=== PATIENT | male | born 1960 | race Caucasian/White ===

== ENCOUNTER 2019-05-29 10:04 | Outpatient (CLI) | payer MEDICARE, MEDICAID, SELFPAY ==
--- NOTE | ~2019-05-29 | XR_ITS ---
EXAMINATION: XR hand LT min 3V, XR wrist LT min 3V EXAM DATE: 05/29/2019 10:34 (accession [id number]), 05/29/2019 10:35 (accession [id number]) INDICATION: No known recent injury provided at this time. Pain of the left hand, wrist. TECHNIQUE: Left hand frontal, lateral and oblique projections obtained and reviewed. Left wrist fron nanette, frontal with ulnar deviation, oblique and lateral projections obtained and reviewed. There is n o prior study for comparison. Correlation was made with contralateral hand, wrist same date. FINDINGS: Left metacarpal bones are unremarkable. Left wrist scapholunate joint space is maintained . There are no bony erosions identified. There are no acute fractures identified. There are no bony erosions identified. There is moderate triscaphe, first carpometacarpal, first-third metacarpophalangeal joint primary ost eoarthritis. Otherwise mild polyarticular interphalangeal osteoarthritis. IMPRESSION: 1. Up to moderate left hand, wrist osteoarthritis. Reviewed, dictated and finalized at location A. BROKER IMPRESSION: 1. Up to moderate left hand, wrist osteoarthritis.
--- NOTE | ~2019-05-29 | XR_ITS ---
EXAMINATION: XR hand RT min 3V, XR wrist RT min 3V EXAM DATE: 05/29/2019 10:36 INDICATION: No known recent injury provided at this time. Pain of the right hand, wrist. TECHNIQUE: Right hand frontal, lateral and oblique projections obtained and reviewed. Right wrist fro ntal, frontal with ulnar deviation, oblique and lateral projections obtained and reviewed. Correlatio n is made to contralateral exam same date. FINDINGS: Right metacarpal bones are unremarkable. Right wrist scapholunate joint space is maintain ed. There is moderate first carpometacarpal, first-third metacarpophalangeal primary osteoarthritis. There is mild to moderate radiocarpal primary osteoarthritis. Otherwise relatively mild polyarticular interphalangeal primary osteoarthritis. There are no acute fractures identified. There are no bony e rosions identified. IMPRESSION: Up to moderate polyarticular right hand, wrist osteoarthritis as above. Reviewed, dictated and finalized at location A. L REGULATOR IMPRESSION: Up to moderate polyarticular right hand, wrist osteoarthritis as a evelia.
[2019-05-29 10:22] LABS: Basophils Absolute Auto 0.05 K/mm3 (0.00-0.10); Basophils Percent Auto 0.8 % (0.0-1.0); Eosinophils Absolute Auto 0.46 K/mm3 (0.02-0.50); Hematocrit 46.4 % (40.0-54.0); Hemoglobin 15.6 g/dL (14.0-18.0); Immature Granulocyte Absolute 0.02 K/mm3 (0.00-0.00); Immature Granulocyte Percent A 0.3 % (0.0-0.0); Lymphocytes Absolute Auto 1.59 K/mm3 (1.10-4.50); Lymphocytes Percent Auto 24.1 % (18.0-42.0); Mean Corpuscular HGB Conc 33.6 g/dL (32.0-36.0); Mean Corpuscular Hemoglobin 28.9 pg (27.0-31.0); Mean Corpuscular Volume 85.9 fL (78.0-102.0); Mean Platelet Volume 10.9 fl (8.7-11.0); Monocytes Absolute Auto 0.75 K/mm3 (0.10-0.90); Monocytes Percent Auto 11.4 % (2.0-11.0); Neutrophils Absolute Auto 3.7 K/mm3 (1.7-7.2); Neutrophils Percent Auto 56.4 % (50.0-70.0); Platelet Count Result 240 K/mm3 (150-420); Red Cell Distribution Width 12.3 % (11.6-14.4); White Blood Count 6.6 K/mm3 (4.8-10.8)
[2019-05-29 10:46] LABS: Add Urine Microscopic? NO; Appearance Urine Clear (Clear); Bilirubin Urine Negative (Negative); Blood Urine Negative (Negative); Color Urine Yellow (Yellow); Glucose Urine UA Negative (Negative); Ketones Urine Negative (Negative); Leukocyte Esterase Ur Negative (Negative); Nitrate Urine Negative (Negative); Protein Urine Negative (Negative); Urobilinogen Urine 0.2 mg/dL (0.2-1.0)
[2019-05-29 11:05] LABS: Hemoglobin A1C 6.3 % (<5.7)
[2019-05-29 11:35] LABS: Erythrocyte Sedimentation Rate 9 mm/hr (0-20)
[2019-05-29 12:21] LABS: Alanine Aminotransferase 64 U/L (16-63); Albumin Level 4.4 g/dL (3.4-5.0); Alkaline Phosphatase 72 U/L (46-116); Anion Gap 19.1 mmol/L (7-16); Aspartate Amino Transferase 36 U/L (15-37); Bilirubin,Total 0.3 mg/dL (0.00-1.00); Blood Urea Nitrogen 14 mg/dL (7-18); Calcium 9.1 mg/dL (8.5-10.1); Carbon Dioxide 22 mmol/L (21-32); Chloride 104 mmol/L (98-108); Cholesterol 127 mg/dL (0-200); Creatine Kinase 175 U/L (39-308); Estimated Glomerular Filt Rate > 60; HDL Direct 33 mg/dL (40-60); LDL Cholesterol Calculated 69 mg/dL (<130); Osmolality Calculated 289 mOsm/kg (285-295); Potassium 4.1 mmol/L (3.5-5.1); Prostate Specific Antigen 0.7 ng/mL (< OR = 4.0); Sodium 141 mmol/L (136-145); Total Protein 7.9 g/dL (6.4-8.2); Triglycerides 124 mg/dL (0-150)
[2019-05-29 12:27] LABS: CRP < 0.2 mg/dL (0.0-0.9); Glucose 42 mg/dL (70-99)
[2019-05-29 12:33] LABS: Rheumatoid Factor Screen Positive (Negative)
[2019-05-29 12:34] LABS: RFT Charge Test YES
[2019-06-03 11:18] LABS: Anti Cyclic Citrullinated Pept <16 Units (<20)
== END 2019-05-29 10:05 | disposition home or self-care (01) ==
PROVIDERS: PCP Internal Medicine; Visit Provider Internal Medicine
DX: E11.65 Type 2 diabetes mellitus with hyperglycemia (principal); I10 Essential (primary) hypertension; E78.2 Mixed hyperlipidemia; M79.642 Pain in left hand; M79.641 Pain in right hand; M25.532 Pain in left wrist; M25.531 Pain in right wrist; Z12.5 Encounter for screening for malignant neoplasm of prostate
CPT/HCPCS: 36415; 73110; 73130; 80053; 80061; 81003; 82550; 83036; 84153; 85025; 85652; 86038; 86140; 86200; 86430; 86431; G0103

== ENCOUNTER 2019-06-18 13:59 | Outpatient (CLI) | payer MEDICARE, MEDICAID, SELFPAY ==
--- NOTE | 2019-06-18 14:12 | ECHO_ITS ---
Patient Info Name: Janes Esparza Age: 58 years : 1960 Gender: Male Ht: 71 in Wt: 231 lbs BSA: 2.32 m2 HR: 79 bpm BP: 142 / 74 mmHg Heart Rhythm: Sinus Rhythm Technical Quality: Good Exam Date: 06/18/2019 2:18 PM Exam Location: [facility] Patient Status: Outpatient Admit Date: 06/18/2019 Staff Ordering Physician: Khurram Hayes DO Medical Transcription Supervisor: Alec Beth RDCS Attending Provider: Khurram Hayes DO Referring Physician: Freddy PAUL; Exam Type: CA echo doppler color flow Study Info Indications I25.10 - Atherosclerotic heart disease of [place] coronary artery without angina pectoris Complete two-dimensional, color flow and Doppler transthoracic echocardiogram is performed. Strain analysis performed. History/Risk Factors CAD/TN, HTN, DM2. Summary 1. Left ventricular chamber dimension is normal. 2. Left ventricular systolic function is normal, estimated at 55-60%. 3. There is mildly increased left ventricular wall thickness. 4. The left ventricular diastolic function is grade I diastolic dysfunction. 5. E/e' 5 is not elevated. 6. Global longitudinal strain is abnormal at -15.1%. 7. Left atrial chamber dimension is mildly enlarged. Left Ventricle E/e' 5 is not elevated. Global longitudinal strain is abnormal at -15.1%. Left ventricular chamber dimension is normal. Left ventricular systolic function is normal, estimated at 55-60%. There is mildly increased left ventricular wall thickness. The left ventricular diastolic function is grade I diastolic dysfunction. Right Ventricle Right ventricular chamber dimension is normal. Right ventricular systolic function is normal. Left Atria Left atrial chamber dimension is mildly enlarged. Right Atria Right atrial chamber dimension is normal. Aortic Valve The aortic valve is trileaflet. There is no aortic valve stenosis. There is no aortic valve regurgitation. Pulmonic Valve There is no pulmonic regurgitation. Mitral Valve There is no mitral valve stenosis. There is no mitral valve regurgitation. Tricuspid Valve There is no tricuspid valve regurgitation. Pericardium/Pleural There is no pericardial effusion. Inferior Vena Cava Normal inferior vena cava with >50% collapse upon inspiration consistent with normal right atrial pressure, 5 mmHg. Aorta The aortic root size at the sinus of Valsalva is normal. Left Ventricular Outflow Tract Name Value Normal LVOT 2D LVOT Diameter 2.2 cm LVOT Doppler LVOT Peak Velocity 107 cm/s LVOT Peak Gradient 5 mmHg LVOT Mean Gradient 2 mmHg LVOT VTI 18 cm LVOT VTI/AV VTI Ratio 0.7 LVOT Stroke Volume 72 ml Mitral Valve Name Value Normal MV Doppler MV
== END 2019-06-18 14:00 | disposition home or self-care (01) ==
LOC: CHSIMG 14:02
PROVIDERS: PCP Internal Medicine; Visit Provider Internal Medicine Cardiovascular Disease
DX: I25.10 Atherosclerotic heart disease of native coronary artery without angina pectoris (principal)
CPT/HCPCS: 93306

== ENCOUNTER 2019-12-03 11:36 | Outpatient (CLI) | payer MEDICARE, SELFPAY ==
[2019-12-03 11:47] LABS: Add Urine Microscopic? NO; Appearance Urine Clear (Clear); Bilirubin Urine Negative (Negative); Blood Urine Negative (Negative); Color Urine Yellow (Yellow); Glucose Urine UA Negative (Negative); Ketones Urine Negative (Negative); Leukocyte Esterase Ur Negative (Negative); Nitrate Urine Negative (Negative); Protein Urine Negative (Negative); Specific Grav Ur 1.025 (1.010-1.020); Urobilinogen Urine 0.2 mg/dL (0.2-1.0); pH Urine 5.5 (5.0-8.0)
[2019-12-03 12:28] LABS: Hemoglobin A1C 7.7 % (<5.7)
[2019-12-03 12:29] LABS: Alanine Aminotransferase 52 U/L (16-63); Albumin Level 3.8 g/dL (3.4-5.0); Alkaline Phosphatase 61 U/L (46-116); Anion Gap 8 mmol/L (8-16); Aspartate Amino Transferase 30 U/L (15-37); Bilirubin,Total 0.3 mg/dL (0.00-1.00); Blood Urea Nitrogen 20 mg/dL (7-18); Calcium 8.8 mg/dL (8.5-10.1); Carbon Dioxide 28 mmol/L (21-32); Chloride 103 mmol/L (98-108); Cholesterol 141 mg/dL (0-200); Creatine Kinase 152 U/L (39-308); Estimated Glomerular Filt Rate > 60; Glucose 74 mg/dL (70-99); HDL Direct 27 mg/dL (40-60); LDL Cholesterol Calculated 83 mg/dL (<130); Osmolality Calculated 289 mOsm/kg (285-295); Potassium 4.5 mmol/L (3.5-5.1); Sodium 139 mmol/L (136-145); Total Protein 7.2 g/dL (6.4-8.2); Triglycerides 157 mg/dL (0-150)
[2019-12-03 12:31] LABS: Creatinine Urine 98.87 mg/dL (40-278)
[2019-12-03 12:41] LABS: MALB Creatinine Ratio 1.3 mg/g (0-30); Microalbumin Urine Random 1.3 mg/L
== END 2019-12-03 11:37 | disposition home or self-care (01) ==
LOC: CHSLAB 11:38
PROVIDERS: PCP Internal Medicine; Visit Provider Internal Medicine
DX: E78.2 Mixed hyperlipidemia (principal); E11.9 Type 2 diabetes mellitus without complications; I10 Essential (primary) hypertension
CPT/HCPCS: 36415; 80053; 80061; 81003; 82043; 82550; 83036

== ENCOUNTER 2020-03-01 10:35 | Outpatient (CLI) | payer MEDICARE, SELFPAY ==
[2020-03-02 14:12] LABS: SARS-CoV-2 RNA PCR Negative
== END 2020-03-01 10:36 | disposition home or self-care (01) ==
LOC: CHSLAB 10:38
PROVIDERS: PCP Internal Medicine; Visit Provider Internal Medicine
DX: Z20.828 Contact with and (suspected) exposure to other viral communicable diseases (principal)
CPT/HCPCS: 87635; C9803; U0003

== ENCOUNTER 2020-04-05 08:33 | Outpatient (CLI) | payer MEDICARE, MEDICAID, SELFPAY ==
--- NOTE | ~2020-04-05 | XR_ITS ---
EXAMINATION: XR chest 2V 04/05/2020 08:52 INDICATION: Pruritus. Shortness of breath. PROCEDURE: 2 view chest COMPARISON: 06/04/2018 FINDINGS: The lungs are clear. The cardiomediastinal silhouette is within normal limits. There are no pleural effusions. There is no pneumothorax suspected. IMPRESSION: 1: NO ACUTE CARDIOPULMONARY DISEASE. Reviewed, dictated and finalized at location A. ERER [employer]
[2020-04-05 08:46] LABS: Basophils Absolute Auto 0.03 K/mm3 (0.00-0.10); Basophils Percent Auto 0.6 % (0.0-1.0); Eosinophils Absolute Auto 0.48 K/mm3 (0.02-0.50); Eosinophils Percent Auto 8.9 % (1.0-6.0); Hematocrit 44.5 % (40.0-54.0); Hemoglobin 14.3 g/dL (14.0-18.0); Immature Granulocyte Absolute 0.03 K/mm3 (0.00-0.00); Immature Granulocyte Percent A 0.6 % (0.0-0.0); Lymphocytes Absolute Auto 0.91 K/mm3 (1.10-4.50); Lymphocytes Percent Auto 16.9 % (18.0-42.0); Mean Corpuscular HGB Conc 32.1 g/dL (32.0-36.0); Mean Corpuscular Hemoglobin 27.4 pg (27.0-31.0); Mean Corpuscular Volume 85.2 fL (78.0-102.0); Mean Platelet Volume 10.6 fl (8.7-11.0); Monocytes Absolute Auto 0.53 K/mm3 (0.10-0.90); Monocytes Percent Auto 9.9 % (2.0-11.0); Neutrophils Absolute Auto 3.4 K/mm3 (1.7-7.2); Neutrophils Percent Auto 63.1 % (50.0-70.0); Platelet Count Result 210 K/mm3 (150-420); Red Blood Count 5.22 M/mm3 (4.70-6.10); Red Cell Distribution Width 12.1 % (11.6-14.4); White Blood Count 5.4 K/mm3 (4.8-10.8)
[2020-04-05 09:49] LABS: Erythrocyte Sedimentation Rate 11 mm/hr (0-20)
[2020-04-05 10:01] LABS: Alanine Aminotransferase 75 U/L (16-63); Alkaline Phosphatase 76 U/L (46-116); Anion Gap 11 mmol/L (8-16); Aspartate Amino Transferase 31 U/L (15-37); Bilirubin,Total 0.3 mg/dL (0.00-1.00); Blood Urea Nitrogen 18 mg/dL (7-18); Carbon Dioxide 25 mmol/L (21-32); Chloride 101 mmol/L (98-108); Estimated Glomerular Filt Rate > 60; Glucose 213 mg/dL (70-99); Osmolality Calculated 291 mOsm/kg (285-295); Potassium 4.8 mmol/L (3.5-5.1); Sodium 137 mmol/L (136-145); Total Protein 7.6 g/dL (6.4-8.2)
[2020-04-05 10:29] LABS: Thyroid Stimulating Hormone Reflex 5.52 u/IU/mL (0.36-3.74)
[2020-04-05 10:59] LABS: Free T4 Free Thyroxine Reflex 0.75 ng/dL (0.76-1.46)
== END 2020-04-05 08:34 | disposition home or self-care (01) ==
LOC: CHSLAB 08:39
PROVIDERS: PCP Internal Medicine; Visit Provider Specialist
DX: L29.9 Pruritus, unspecified (principal)
CPT/HCPCS: 36415; 71046; 80053; 84439; 84443; 85025; 85652

== ENCOUNTER 2020-04-06 09:57 | Outpatient (CLI) | payer MEDICARE, SELFPAY ==
[2020-04-06 10:21] LABS: Creatinine Urine 89.61 mg/dL (40-278); MALB Creatinine Ratio 14.5 mg/g (0-30); Microalbumin Urine Random < 13.0 mg/L
[2020-04-06 10:23] LABS: Hemoglobin A1C 7.2 % (<5.7)
[2020-04-06 11:12] LABS: Anion Gap 8 mmol/L (8-16); Blood Urea Nitrogen 15 mg/dL (7-18); Calcium 9.6 mg/dL (8.5-10.1); Carbon Dioxide 30 mmol/L (21-32); Chloride 100 mmol/L (98-108); Estimated Glomerular Filt Rate > 60; Glucose 91 mg/dL (70-99); Osmolality Calculated 286 mOsm/kg (285-295); Potassium 4.6 mmol/L (3.5-5.1); Sodium 138 mmol/L (136-145)
== END 2020-04-06 09:58 | disposition home or self-care (01) ==
LOC: CHSLAB 09:58
PROVIDERS: PCP Internal Medicine; Visit Provider Internal Medicine
DX: E11.65 Type 2 diabetes mellitus with hyperglycemia (principal)
CPT/HCPCS: 36415; 80048; 82043; 83036

== ENCOUNTER 2020-07-05 14:06 | Outpatient (CLI) | payer MEDICARE, SELFPAY ==
[2020-07-05 14:17] LABS: Basophils Absolute Auto 0.03 K/mm3 (0.00-0.10); Basophils Percent Auto 0.6 % (0.0-1.0); Eosinophils Absolute Auto 0.38 K/mm3 (0.02-0.50); Eosinophils Percent Auto 7.8 % (1.0-6.0); Hematocrit 42.1 % (40.0-54.0); Hemoglobin 13.7 g/dL (14.0-18.0); Immature Granulocyte Absolute 0.02 K/mm3 (0.00-0.00); Immature Granulocyte Percent A 0.4 % (0.0-0.0); Lymphocytes Absolute Auto 0.92 K/mm3 (1.10-4.50); Lymphocytes Percent Auto 18.9 % (18.0-42.0); Mean Corpuscular HGB Conc 32.5 g/dL (32.0-36.0); Mean Corpuscular Hemoglobin 27.5 pg (27.0-31.0); Mean Corpuscular Volume 84.4 fL (78.0-102.0); Monocytes Absolute Auto 0.48 K/mm3 (0.10-0.90); Monocytes Percent Auto 9.9 % (2.0-11.0); Neutrophils Percent Auto 62.4 % (50.0-70.0); Platelet Count Result 214 K/mm3 (150-420); Red Blood Count 4.99 M/mm3 (4.70-6.10); Red Cell Distribution Width 13.4 % (11.6-14.4); White Blood Count 4.9 K/mm3 (4.8-10.8)
[2020-07-05 15:07] LABS: Alanine Aminotransferase 56 U/L (16-63); Albumin Level 3.9 g/dL (3.4-5.0); Alkaline Phosphatase 72 U/L (46-116); Anion Gap 11 mmol/L (8-16); Aspartate Amino Transferase 28 U/L (15-37); Bilirubin,Total 0.3 mg/dL (0.00-1.00); Blood Urea Nitrogen 17 mg/dL (7-18); Calcium 9.5 mg/dL (8.5-10.1); Carbon Dioxide 27 mmol/L (21-32); Chloride 101 mmol/L (98-108); Estimated Glomerular Filt Rate > 60; Free T4 Free Thyroxine Reflex 0.85 ng/dL (0.76-1.46); Glucose 174 mg/dL (70-99); Osmolality Calculated 293 mOsm/kg (285-295); Potassium 4.7 mmol/L (3.5-5.1); Sodium 139 mmol/L (136-145); Total Protein 7.4 g/dL (6.4-8.2)
[2020-07-05 15:23] LABS: Erythrocyte Sedimentation Rate 12 mm/hr (0-20)
[2020-07-11 12:53] LABS: Cholesterol 118 mg/dL (0-200); HDL Direct 32 mg/dL (40-60); Hemoglobin A1C 8.7 % (<5.7); LDL Cholesterol Calculated 65 mg/dL (<130); Triglycerides 106 mg/dL (0-150)
== END 2020-07-05 14:07 | disposition home or self-care (01) ==
LOC: CHSLAB 14:08
PROVIDERS: PCP Internal Medicine; Visit Provider Specialist
DX: L29.9 Pruritus, unspecified (principal); E78.5 Hyperlipidemia, unspecified; R73.01 Impaired fasting glucose
CPT/HCPCS: 36415; 80053; 80061; 83036; 84439; 84443; 85025; 85652

== ENCOUNTER 2020-10-08 06:50 | Outpatient (CLI) | payer MEDICARE, MEDICAID, SELFPAY ==
[2020-10-08 07:16] LABS: Basophils Absolute Auto 0.03 K/mm3 (0.00-0.10); Basophils Percent Auto 0.5 % (0.0-1.0); Eosinophils Absolute Auto 0.48 K/mm3 (0.02-0.50); Eosinophils Percent Auto 7.9 % (1.0-6.0); Hematocrit 44.4 % (40.0-54.0); Hemoglobin 14.7 g/dL (14.0-18.0); Immature Granulocyte Absolute 0.04 K/mm3 (0.00-0.00); Immature Granulocyte Percent A 0.7 % (0.0-0.0); Lymphocytes Absolute Auto 0.95 K/mm3 (1.10-4.50); Lymphocytes Percent Auto 15.7 % (18.0-42.0); Mean Corpuscular HGB Conc 33.1 g/dL (32.0-36.0); Mean Corpuscular Hemoglobin 28.4 pg (27.0-31.0); Mean Corpuscular Volume 85.9 fL (78.0-102.0); Mean Platelet Volume 10.8 fl (8.7-11.0); Monocytes Absolute Auto 0.58 K/mm3 (0.10-0.90); Monocytes Percent Auto 9.6 % (2.0-11.0); Neutrophils Percent Auto 65.6 % (50.0-70.0); Platelet Count Result 222 K/mm3 (150-420); Red Blood Count 5.17 M/mm3 (4.70-6.10); Red Cell Distribution Width 13.4 % (11.6-14.4); White Blood Count 6.1 K/mm3 (4.8-10.8)
[2020-10-08 07:21] LABS: Add Urine Microscopic? YES; Appearance Urine Clear (Clear); Bacteria Urine Trace /hpf; Bilirubin Urine Negative (Negative); Blood Urine Negative (Negative); Color Urine Light Yellow (Yellow); Glucose Urine UA 3+ (Negative); Ketones Urine Negative (Negative); Leukocyte Esterase Ur Negative (Negative); Nitrate Urine Negative (Negative); Protein Urine Negative (Negative); RBC Urine None seen /hpf (0-2); Specific Grav Ur 1.025 (1.010-1.020); Squamous Epithelial Cell Urine Rare /hpf (Few); Urobilinogen Urine 0.2 mg/dL (0.2-1.0); WBC Urine None seen /hpf (0-3); pH Urine 5.5 (5.0-8.0)
[2020-10-08 07:52] LABS: Creatinine Urine 109.87 mg/dL (40-278); MALB Creatinine Ratio 11.8 mg/g (0-30); Microalbumin Urine Random < 13.0 mg/L
[2020-10-08 07:53] LABS: Hemoglobin A1C 10.7 % (<5.7)
[2020-10-08 08:20] LABS: Erythrocyte Sedimentation Rate 14 mm/hr (0-20)
[2020-10-08 08:40] LABS: Alanine Aminotransferase 36 U/L (16-63); Alkaline Phosphatase 90 U/L (46-116); Anion Gap 13 mmol/L (8-16); Aspartate Amino Transferase 13 U/L (15-37); Bilirubin,Total 0.3 mg/dL (0.00-1.00); Blood Urea Nitrogen 19 mg/dL (7-18); Calcium 9.3 mg/dL (8.5-10.1); Carbon Dioxide 23 mmol/L (21-32); Chloride 97 mmol/L (98-108); Cholesterol 133 mg/dL (0-200); Creatine Kinase 94 U/L (39-308); Estimated Glomerular Filt Rate > 60; Glucose 340 mg/dL (70-99); HDL Direct 30 mg/dL (40-60); LDL Cholesterol Calculated 77 mg/dL (<130); Osmolality Calculated 291 mOsm/kg (285-295); Potassium 5.2 mmol/L (3.5-5.1); Prostate Specific Antigen 0.6 ng/mL (< OR = 4.0); Sodium 133 mmol/L (136-145); Thyroid Stimulating Hormone 4.15 uIU/mL (0.36-3.74); Total Protein 7.9 g/dL (6.4-8.2); Triglycerides 131 mg/dL (0-150)
[2020-10-08 09:03] LABS: CRP < 0.2 mg/dL (0.0-0.9); Free T4 Free Thyroxine 0.85 ng/dL (0.76-1.46)
== END 2020-10-08 06:51 | disposition home or self-care (01) ==
LOC: CHSLAB 06:52
PROVIDERS: PCP Internal Medicine; Visit Provider Internal Medicine
DX: E11.65 Type 2 diabetes mellitus with hyperglycemia (principal); E78.2 Mixed hyperlipidemia; I10 Essential (primary) hypertension; I25.10 Atherosclerotic heart disease of native coronary artery without angina pectoris; E03.4 Atrophy of thyroid (acquired); M79.641 Pain in right hand; Z12.5 Encounter for screening for malignant neoplasm of prostate
CPT/HCPCS: 36415; 80053; 80061; 81001; 82043; 82550; 83036; 84153; 84439; 84443; 85025; 85652; 86140; G0103

== ENCOUNTER 2021-02-22 08:11 | Outpatient (CLI) | payer OTHER, SELFPAY ==
[2021-02-22 08:40] LABS: Hemoglobin A1C 11.7 % (<5.7)
[2021-02-22 08:46] LABS: Creatinine Urine 21.45 mg/dL (40-278)
[2021-02-22 08:54] LABS: MALB Creatinine Ratio 60.6 mg/g (0-30); Microalbumin Urine Random < 13.0 mg/L
[2021-02-22 08:56] LABS: Add Urine Microscopic? YES; Appearance Urine Clear (Clear); Basophils Absolute Auto 0.03 K/mm3 (0.00-0.10); Basophils Percent Auto 0.7 % (0.0-1.0); Bilirubin Urine Negative (Negative); Blood Urine Negative (Negative); Color Urine Light Yellow (Yellow); Eosinophils Absolute Auto 0.22 K/mm3 (0.02-0.50); Eosinophils Percent Auto 5.1 % (1.0-6.0); Glucose Urine UA Trace (Negative); Hematocrit 43.4 % (40.0-54.0); Hemoglobin 14.3 g/dL (14.0-18.0); Immature Granulocyte Absolute 0.02 K/mm3 (0.00-0.00); Immature Granulocyte Percent A 0.5 % (0.0-0.0); Ketones Urine Negative (Negative); Leukocyte Esterase Ur Negative (Negative); Lymphocytes Absolute Auto 0.65 K/mm3 (1.10-4.50); Mean Corpuscular HGB Conc 32.9 g/dL (32.0-36.0); Mean Corpuscular Hemoglobin 28.4 pg (27.0-31.0); Mean Corpuscular Volume 86.3 fL (78.0-102.0); Mean Platelet Volume 10.6 fl (8.7-11.0); Monocytes Absolute Auto 0.51 K/mm3 (0.10-0.90); Monocytes Percent Auto 11.8 % (2.0-11.0); Neutrophils Absolute Auto 2.9 K/mm3 (1.7-7.2); Neutrophils Percent Auto 66.9 % (50.0-70.0); Nitrate Urine Negative (Negative); Platelet Count Result 210 K/mm3 (150-420); Protein Urine Negative (Negative); Red Blood Count 5.03 M/mm3 (4.70-6.10); Red Cell Distribution Width 13.3 % (11.6-14.4); Specific Grav Ur <= 1.005 (1.010-1.020); Urobilinogen Urine 0.2 mg/dL (0.2-1.0); White Blood Count 4.3 K/mm3 (4.8-10.8)
[2021-02-22 09:03] LABS: Bacteria Urine None seen /hpf; RBC Urine None seen /hpf (0-2); WBC Urine None seen /hpf (0-3)
[2021-02-22 09:08] LABS: Alanine Aminotransferase 48 U/L (16-63); Albumin Level 3.9 g/dL (3.4-5.0); Alkaline Phosphatase 78 U/L (46-116); Anion Gap 11 mmol/L (8-16); Aspartate Amino Transferase 19 U/L (15-37); Bilirubin,Total 0.4 mg/dL (0.00-1.00); Blood Urea Nitrogen 12 mg/dL (7-18); Calcium 8.5 mg/dL (8.5-10.1); Carbon Dioxide 25 mmol/L (21-32); Chloride 102 mmol/L (98-108); Cholesterol 132 mg/dL (0-200); Creatine Kinase 170 U/L (39-308); Estimated Glomerular Filt Rate > 60; Glucose 221 mg/dL (70-99); HDL Direct 29 mg/dL (40-60); LDL Cholesterol Calculated 79 mg/dL (<130); Osmolality Calculated 292 mOsm/kg (285-295); Potassium 4.7 mmol/L (3.5-5.1); Sodium 138 mmol/L (136-145); Total Protein 7.1 g/dL (6.4-8.2); Triglycerides 122 mg/dL (0-150)
[2021-02-22 09:17] LABS: CRP < 0.2 mg/dL (0.0-0.9)
[2021-02-22 10:06] LABS: Erythrocyte Sedimentation Rate 10 mm/hr (0-20)
== END 2021-02-22 08:12 | disposition home or self-care (01) ==
LOC: CHSLAB 08:15
PROVIDERS: PCP Internal Medicine; Visit Provider Internal Medicine
DX: E11.65 Type 2 diabetes mellitus with hyperglycemia (principal); E78.2 Mixed hyperlipidemia; L40.50 Arthropathic psoriasis, unspecified
CPT/HCPCS: 36415; 80053; 80061; 81001; 82043; 82550; 83036; 85025; 85652; 86140

== ENCOUNTER 2021-04-20 09:54 | Outpatient (CLI) | payer OTHER, SELFPAY ==
[2021-04-20 10:05] LABS: Basophils Absolute Auto 0.04 K/mm3 (0.00-0.10); Basophils Percent Auto 0.8 % (0.0-1.0); Eosinophils Absolute Auto 0.38 K/mm3 (0.02-0.50); Eosinophils Percent Auto 7.5 % (1.0-6.0); Hematocrit 44.7 % (40.0-54.0); Hemoglobin 14.2 g/dL (14.0-18.0); Immature Granulocyte Absolute 0.02 K/mm3 (0.00-0.00); Immature Granulocyte Percent A 0.4 % (0.0-0.0); Lymphocytes Absolute Auto 0.92 K/mm3 (1.10-4.50); Lymphocytes Percent Auto 18.2 % (18.0-42.0); Mean Corpuscular HGB Conc 31.8 g/dL (32.0-36.0); Mean Corpuscular Hemoglobin 27.9 pg (27.0-31.0); Mean Corpuscular Volume 87.8 fL (78.0-102.0); Mean Platelet Volume 11.6 fl (8.7-11.0); Monocytes Absolute Auto 0.43 K/mm3 (0.10-0.90); Monocytes Percent Auto 8.5 % (2.0-11.0); Neutrophils Absolute Auto 3.3 K/mm3 (1.7-7.2); Neutrophils Percent Auto 64.6 % (50.0-70.0); Platelet Count Result 210 K/mm3 (150-420); Red Blood Count 5.09 M/mm3 (4.70-6.10); Red Cell Distribution Width 13.2 % (11.6-14.4); White Blood Count 5.1 K/mm3 (4.8-10.8)
[2021-04-20 10:29] LABS: Alanine Aminotransferase 36 U/L (16-63); Albumin Level 3.8 g/dL (3.4-5.0); Alkaline Phosphatase 79 U/L (46-116); Anion Gap 12 mmol/L (8-16); Aspartate Amino Transferase 18 U/L (15-37); Bilirubin,Total 0.4 mg/dL (0.00-1.00); Blood Urea Nitrogen 17 mg/dL (7-18); Calcium 8.9 mg/dL (8.5-10.1); Carbon Dioxide 24 mmol/L (21-32); Chloride 103 mmol/L (98-108); Estimated Glomerular Filt Rate > 60; Glucose 233 mg/dL (70-99); Osmolality Calculated 296 mOsm/kg (285-295); Potassium 4.3 mmol/L (3.5-5.1); Sodium 139 mmol/L (136-145); Total Protein 7.1 g/dL (6.4-8.2)
== END 2021-04-20 09:55 | disposition home or self-care (01) ==
LOC: CHSLAB 09:55
PROVIDERS: PCP Internal Medicine; Visit Provider Internal Medicine
DX: L40.50 Arthropathic psoriasis, unspecified (principal)
CPT/HCPCS: 36415; 80053; 85025

== ENCOUNTER 2021-07-11 07:31 | Outpatient (CLI) | payer OTHER, SELFPAY ==
[2021-07-11 07:45] LABS: Basophils Absolute Auto 0.04 K/mm3 (0.00-0.10); Basophils Percent Auto 0.7 % (0.0-1.0); Eosinophils Percent Auto 9.3 % (1.0-6.0); Hematocrit 42.5 % (40.0-54.0); Hemoglobin 13.4 g/dL (14.0-18.0); Immature Granulocyte Absolute 0.02 K/mm3 (0.00-0.00); Immature Granulocyte Percent A 0.4 % (0.0-0.0); Lymphocytes Absolute Auto 0.95 K/mm3 (1.10-4.50); Lymphocytes Percent Auto 17.7 % (18.0-42.0); Mean Corpuscular HGB Conc 31.5 g/dL (32.0-36.0); Mean Corpuscular Hemoglobin 27.1 pg (27.0-31.0); Mean Corpuscular Volume 85.9 fL (78.0-102.0); Mean Platelet Volume 11.1 fl (8.7-11.0); Neutrophils Absolute Auto 3.2 K/mm3 (1.7-7.2); Neutrophils Percent Auto 58.9 % (50.0-70.0); Platelet Count Result 214 K/mm3 (150-420); Red Blood Count 4.95 M/mm3 (4.70-6.10); Red Cell Distribution Width 12.5 % (11.6-14.4); White Blood Count 5.4 K/mm3 (4.8-10.8)
[2021-07-11 07:46] LABS: Add Urine Microscopic? YES; Appearance Urine Clear (Clear); Bilirubin Urine Negative (Negative); Blood Urine Negative (Negative); Color Urine Light Yellow (Yellow); Glucose Urine UA 3+ (Negative); Ketones Urine Negative (Negative); Leukocyte Esterase Ur Negative LEU/UL (Negative); Nitrate Urine Negative (Negative); Protein Urine Negative (Negative); Specific Grav Ur 1.015 (1.010-1.020); Urobilinogen Urine 0.2 mg/dL (0.2-1.0)
[2021-07-11 07:51] LABS: Bacteria Urine None seen /hpf; RBC Urine None seen /hpf (0-2); WBC Urine None seen /hpf (0-3)
[2021-07-11 07:56] LABS: Creatinine Urine 54.92 mg/dL (40-278); MALB Creatinine Ratio 23.6 mg/g (0-30); Microalbumin Urine Random < 13.0 mg/L
[2021-07-11 08:12] LABS: Hemoglobin A1C 9.3 % (<5.7)
[2021-07-11 08:44] LABS: Alanine Aminotransferase 32 U/L (16-63); Albumin Level 3.6 g/dL (3.4-5.0); Alkaline Phosphatase 72 U/L (46-116); Anion Gap 8 mmol/L (8-16); Aspartate Amino Transferase 24 U/L (15-37); Bilirubin,Total 0.1 mg/dL (0.00-1.00); Blood Urea Nitrogen 13 mg/dL (7-18); Calcium 8.7 mg/dL (8.5-10.1); Carbon Dioxide 26 mmol/L (21-32); Chloride 103 mmol/L (98-108); Cholesterol 100 mg/dL (0-200); Creatine Kinase 299 U/L (39-308); Estimated Glomerular Filt Rate > 60; Glucose 197 mg/dL (70-99); HDL Direct 26 mg/dL (40-60); LDL Cholesterol Calculated 43 mg/dL (<130); Osmolality Calculated 289 mOsm/kg (285-295); Sodium 137 mmol/L (136-145); Total Protein 7.1 g/dL (6.4-8.2); Triglycerides 155 mg/dL (0-150)
== END 2021-07-11 07:32 | disposition home or self-care (01) ==
LOC: CHSLAB 07:34
PROVIDERS: PCP Internal Medicine; Visit Provider Internal Medicine
DX: E11.65 Type 2 diabetes mellitus with hyperglycemia (principal); E78.2 Mixed hyperlipidemia; I10 Essential (primary) hypertension; N39.0 Urinary tract infection, site not specified; L40.50 Arthropathic psoriasis, unspecified
CPT/HCPCS: 36415; 80053; 80061; 81001; 82043; 82550; 83036; 85025

== ENCOUNTER 2021-12-05 07:30 | Outpatient (CLI) | payer OTHER, SELFPAY ==
[2021-12-05 07:50] LABS: Add Urine Microscopic? YES; Appearance Urine Clear (Clear); Basophils Absolute Auto 0.04 K/mm3 (0.00-0.10); Basophils Percent Auto 0.8 % (0.0-1.0); Bilirubin Urine Negative (Negative); Blood Urine Negative (Negative); Color Urine Yellow (Yellow); Eosinophils Absolute Auto 0.39 K/mm3 (0.02-0.50); Eosinophils Percent Auto 8.1 % (1.0-6.0); Glucose Urine UA Negative (Negative); Hematocrit 44.1 % (40.0-54.0); Hemoglobin 14.1 g/dL (14.0-18.0); Immature Granulocyte Absolute 0.01 K/mm3 (0.00-0.00); Immature Granulocyte Percent A 0.2 % (0.0-0.0); Ketones Urine Trace (Negative); Leukocyte Esterase Ur Negative LEU/UL (Negative); Lymphocytes Absolute Auto 1.01 K/mm3 (1.10-4.50); Mean Corpuscular Hemoglobin 27.5 pg (27.0-31.0); Mean Platelet Volume 10.5 fl (8.7-11.0); Monocytes Absolute Auto 0.58 K/mm3 (0.10-0.90); Neutrophils Absolute Auto 2.8 K/mm3 (1.7-7.2); Neutrophils Percent Auto 57.9 % (50.0-70.0); Nitrate Urine Negative (Negative); Platelet Count Result 228 K/mm3 (150-420); Protein Urine Negative (Negative); Red Blood Count 5.13 M/mm3 (4.70-6.10); Red Cell Distribution Width 13.8 % (11.6-14.4); Urobilinogen Urine 0.2 mg/dL (0.2-1.0); White Blood Count 4.8 K/mm3 (4.8-10.8)
[2021-12-05 07:54] LABS: Bacteria Urine Trace /hpf; Mucus Urine Moderate /lpf; RBC Urine None seen /hpf (0-2); WBC Urine None seen /hpf (0-3)
[2021-12-05 07:58] LABS: Creatinine Urine 213.77 mg/dL (40-278); Microalbumin Urine Random < 13.0 mg/L
[2021-12-05 08:00] LABS: Hemoglobin A1C 9.8 % (<5.7)
[2021-12-05 08:19] LABS: Alanine Aminotransferase 26 U/L (16-63); Albumin Level 3.8 g/dL (3.4-5.0); Alkaline Phosphatase 81 U/L (46-116); Anion Gap 8 mmol/L (8-16); Aspartate Amino Transferase 27 U/L (15-37); Bilirubin,Total 0.4 mg/dL (0.00-1.00); Blood Urea Nitrogen 11 mg/dL (7-18); Calcium 8.7 mg/dL (8.5-10.1); Carbon Dioxide 26 mmol/L (21-32); Chloride 104 mmol/L (98-108); Estimated Glomerular Filt Rate > 60; Glucose 117 mg/dL (70-99); Osmolality Calculated 286 mOsm/kg (285-295); Potassium 4.7 mmol/L (3.5-5.1); Prostate Specific Antigen 0.8 ng/mL (< OR = 4.0); Sodium 138 mmol/L (136-145); Total Protein 7.3 g/dL (6.4-8.2)
== END 2021-12-05 07:31 | disposition home or self-care (01) ==
LOC: CHSLAB 07:36
PROVIDERS: PCP Internal Medicine; Visit Provider Internal Medicine
DX: D64.9 Anemia, unspecified (principal); E11.65 Type 2 diabetes mellitus with hyperglycemia; Z12.5 Encounter for screening for malignant neoplasm of prostate; N39.0 Urinary tract infection, site not specified
CPT/HCPCS: 36415; 80053; 81001; 82043; 83036; 84153; 85025; G0103

== ENCOUNTER 2022-03-12 11:10 | Outpatient (CLI) | payer OTHER, SELFPAY ==
[2022-03-12 11:27] LABS: Hematocrit 44.8 % (40.0-54.0); Hemoglobin 14.8 g/dL (14.0-18.0); Mean Corpuscular Hemoglobin 28.6 pg (27.0-31.0); Mean Corpuscular Volume 86.7 fL (78.0-102.0); Mean Platelet Volume 10.8 fl (8.7-11.0); Platelet Count Result 198 K/mm3 (150-420); Red Blood Count 5.17 M/mm3 (4.70-6.10); Red Cell Distribution Width 12.3 % (11.6-14.4); White Blood Count 3.9 K/mm3 (4.8-10.8)
[2022-03-12 12:12] LABS: Strep Group A RT-PCR Negative (Negative)
[2022-03-12 12:19] LABS: Band Neutrophils Percent 1 % (0-6); Eosinophils Absolute Manual 0.39 K/mm3 (0.02-0.5); Eosinophils Percent Manual 10 % (1-6); Lymphocytes Absolute Manual 0.78 K/mm3 (1.1-4.5); Lymphocytes Percent Manual 20 % (18-44); Monocytes Percent Manual 13 % (3-9); Neutrophils Absolute Manual 2.22 K/mm3 (1.3-6.7); Neutrophils Percent Manual 56 % (46-73); Platelet Estimate Adequate (Adequate); Total Cells Counted 100
[2022-03-12 12:20] LABS: Influenza A QL RT-PCR Negative (Negative); Influenza B QL RT-PCR Negative (Negative); SARS-CoV-2 RNA PCR Negative (Negative)
[2022-03-12 12:21] LABS: RSV RNA, RT-PCR Negative (Negative)
[2022-03-12 12:27] LABS: Alanine Aminotransferase 47 U/L (16-63); Albumin Level 4.1 g/dL (3.4-5.0); Alkaline Phosphatase 96 U/L (46-116); Anion Gap 7 mmol/L (8-16); Aspartate Amino Transferase 30 U/L (15-37); Bilirubin,Total 0.5 mg/dL (0.00-1.00); Blood Urea Nitrogen 15 mg/dL (7-18); Carbon Dioxide 30 mmol/L (21-32); Chloride 104 mmol/L (98-108); Estimated Glomerular Filt Rate > 60; Glucose 134 mg/dL (70-99); Osmolality Calculated 294 mOsm/kg (285-295); Potassium 5.3 mmol/L (3.5-5.1); Sodium 141 mmol/L (136-145); Total Protein 7.9 g/dL (6.4-8.2)
== END 2022-03-12 11:11 | disposition home or self-care (01) ==
PROVIDERS: PCP Internal Medicine; Visit Provider Internal Medicine
DX: J06.9 Acute upper respiratory infection, unspecified (principal); Z20.822 Contact with and (suspected) exposure to COVID-19
CPT/HCPCS: 36415; 80053; 85025; 87637; 87651

== ENCOUNTER 2022-07-03 07:36 | Outpatient (CLI) | payer OTHER, SELFPAY ==
[2022-07-03 07:55] LABS: Basophils Absolute Auto 0.04 K/mm3 (0.00-0.10); Basophils Percent Auto 0.8 % (0.0-1.0); Eosinophils Absolute Auto 0.47 K/mm3 (0.02-0.50); Eosinophils Percent Auto 9.7 % (1.0-6.0); Hematocrit 43.8 % (40.0-54.0); Hemoglobin 14.3 g/dL (14.0-18.0); Immature Granulocyte Absolute 0.02 K/mm3 (0.00-0.00); Immature Granulocyte Percent A 0.4 % (0.0-0.0); Lymphocytes Absolute Auto 0.89 K/mm3 (1.10-4.50); Lymphocytes Percent Auto 18.4 % (18.0-42.0); Mean Corpuscular HGB Conc 32.6 g/dL (32.0-36.0); Mean Corpuscular Hemoglobin 27.7 pg (27.0-31.0); Mean Corpuscular Volume 84.9 fL (78.0-102.0); Mean Platelet Volume 10.3 fl (8.7-11.0); Monocytes Absolute Auto 0.62 K/mm3 (0.10-0.90); Monocytes Percent Auto 12.8 % (2.0-11.0); Neutrophils Absolute Auto 2.8 K/mm3 (1.7-7.2); Neutrophils Percent Auto 57.9 % (50.0-70.0); Platelet Count Result 212 K/mm3 (150-420); Red Blood Count 5.16 M/mm3 (4.70-6.10); Red Cell Distribution Width 12.7 % (11.6-14.4); White Blood Count 4.8 K/mm3 (4.8-10.8)
[2022-07-03 07:59] LABS: Appearance Urine Clear (Clear); Bilirubin Urine Negative (Negative); Blood Urine Negative (Negative); Color Urine Light Yellow (Yellow); Glucose Urine UA Negative (Negative); Ketones Urine Negative (Negative); Leukocyte Esterase Ur Negative LEU/UL (Negative); Nitrate Urine Negative (Negative); Protein Urine Negative (Negative); Specific Grav Ur <= 1.005 (1.010-1.020); Urobilinogen Urine 0.2 mg/dL (0.2-1.0)
[2022-07-03 08:12] LABS: Add Urine Microscopic? NO
[2022-07-03 08:16] LABS: Creatinine Urine 38.13 mg/dL (40-278); Microalbumin Urine Random < 13.0 mg/L
[2022-07-03 08:20] LABS: Hemoglobin A1C 7.2 % (<5.7)
[2022-07-03 08:47] LABS: Alanine Aminotransferase 42 U/L (16-63); Albumin Level 3.8 g/dL (3.4-5.0); Alkaline Phosphatase 104 U/L (46-116); Anion Gap 8 mmol/L (8-16); Aspartate Amino Transferase 27 U/L (15-37); Bilirubin,Total 0.4 mg/dL (0.00-1.00); Blood Urea Nitrogen 16 mg/dL (7-18); Carbon Dioxide 30 mmol/L (21-32); Chloride 105 mmol/L (98-108); Cholesterol 185 mg/dL (0-200); Creatine Kinase 158 U/L (39-308); Estimated Glomerular Filt Rate > 60; Glucose 101 mg/dL (70-99); HDL Direct 33 mg/dL (40-60); LDL Cholesterol Calculated 133 mg/dL (<130); Osmolality Calculated 297 mOsm/kg (285-295); Potassium 5.2 mmol/L (3.5-5.1); Sodium 143 mmol/L (136-145); Total Protein 7.2 g/dL (6.4-8.2); Triglycerides 97 mg/dL (0-150)
[2022-07-03 10:57] LABS: Calcium 9.1 mg/dL (8.5-10.1)
== END 2022-07-03 07:37 | disposition home or self-care (01) ==
LOC: CHSLAB 07:38
PROVIDERS: PCP Internal Medicine; Visit Provider Internal Medicine
DX: E11.65 Type 2 diabetes mellitus with hyperglycemia (principal); E78.5 Hyperlipidemia, unspecified; N39.0 Urinary tract infection, site not specified
CPT/HCPCS: 36415; 80053; 80061; 81003; 82043; 82550; 83036; 85025

== ENCOUNTER 2022-11-29 07:14 | Outpatient (CLI) | payer OTHER, SELFPAY ==
[2022-11-29 07:56] LABS: Hemoglobin A1C 7.1 % (<5.7)
[2022-11-29 08:16] LABS: Alanine Aminotransferase 26 U/L (16-63); Albumin Level 3.6 g/dL (3.4-5.0); Alkaline Phosphatase 99 U/L (46-116); Anion Gap 9 mmol/L (8-16); Aspartate Amino Transferase 15 U/L (15-37); Bilirubin,Total 0.3 mg/dL (0.00-1.00); Blood Urea Nitrogen 18 mg/dL (7-18); Calcium 8.7 mg/dL (8.5-10.1); Carbon Dioxide 28 mmol/L (21-32); Chloride 103 mmol/L (98-108); Cholesterol 128 mg/dL (0-200); Creatine Kinase 136 U/L (39-308); Estimated Glomerular Filt Rate > 60; Glucose 219 mg/dL (70-99); HDL Direct 34 mg/dL (40-60); LDL Cholesterol Calculated 76 mg/dL (<130); Osmolality Calculated 298 mOsm/kg (285-295); Potassium 4.9 mmol/L (3.5-5.1); Sodium 140 mmol/L (136-145); Total Protein 6.9 g/dL (6.4-8.2); Triglycerides 92 mg/dL (0-150)
== END 2022-11-29 07:15 | disposition home or self-care (01) ==
LOC: CHSLAB 07:16
PROVIDERS: PCP Internal Medicine; Visit Provider Internal Medicine
DX: E11.65 Type 2 diabetes mellitus with hyperglycemia (principal)
CPT/HCPCS: 36415; 80053; 80061; 82550; 83036

== ENCOUNTER 2023-01-09 09:08 | Outpatient (CLI) | payer OTHER, SELFPAY ==
--- NOTE | ~2023-01-09 | XR_ITS ---
Clinical Indication: Cough PA and lateral views of the chest: Comparison: 04/05/2020 Findings: The lungs are clear, without evidence of focal consolidation or pleural effusion. Cardiome diastinal silhouette is within normal limits. Bones and soft tissues are unremarkable. Impression: Normal chest. Reviewed, dictated and finalized at [facility]. Impression: Normal chest.
== END 2023-01-09 09:09 | disposition home or self-care (01) ==
PROVIDERS: PCP Internal Medicine; Visit Provider Internal Medicine
DX: R05.9 Cough, unspecified (principal)
CPT/HCPCS: 71046

== ENCOUNTER 2023-03-13 09:20 | Outpatient (CLI) | payer OTHER, SELFPAY ==
[2023-03-13 09:34] LABS: Basophils Absolute Auto 0.03 K/mm3 (0.00-0.10); Basophils Percent Auto 0.6 % (0.0-1.0); Eosinophils Percent Auto 3.8 % (1.0-6.0); Hematocrit 41.8 % (40.0-54.0); Hemoglobin 13.8 g/dL (14.0-18.0); Immature Granulocyte Absolute 0.02 K/mm3 (0.00-0.00); Immature Granulocyte Percent A 0.4 % (0.0-0.0); Lymphocytes Absolute Auto 0.93 K/mm3 (1.10-4.50); Lymphocytes Percent Auto 17.7 % (18.0-42.0); Mean Corpuscular Hemoglobin 29.2 pg (27.0-31.0); Mean Corpuscular Volume 88.4 fL (78.0-102.0); Mean Platelet Volume 10.5 fl (8.7-11.0); Monocytes Absolute Auto 0.56 K/mm3 (0.10-0.90); Monocytes Percent Auto 10.7 % (2.0-11.0); Neutrophils Absolute Auto 3.5 K/mm3 (1.7-7.2); Neutrophils Percent Auto 66.8 % (50.0-70.0); Platelet Count Result 170 K/mm3 (150-420); Red Blood Count 4.73 M/mm3 (4.70-6.10); Red Cell Distribution Width 13.2 % (11.6-14.4); White Blood Count 5.3 K/mm3 (4.8-10.8)
[2023-03-13 09:38] LABS: Appearance Urine Clear (Clear); Bilirubin Urine Negative (Negative); Blood Urine Negative (Negative); Color Urine Light Yellow (Yellow); Glucose Urine UA Negative (Negative); Ketones Urine Negative (Negative); Leukocyte Esterase Ur Negative LEU/UL (Negative); Nitrate Urine Negative (Negative); Protein Urine Negative (Negative); Specific Grav Ur 1.015 (1.010-1.020); Urobilinogen Urine 0.2 mg/dL (0.2-1.0)
[2023-03-13 09:40] LABS: Add Urine Microscopic? NO
[2023-03-13 09:45] LABS: Creatinine Urine 104.75 mg/dL (40-278); Hemoglobin A1C 7.3 % (<5.7); MALB Creatinine Ratio 12.4 mg/g (0-30); Microalbumin Urine Random < 13.0 mg/L
[2023-03-13 10:16] LABS: Alanine Aminotransferase 38 U/L (16-63); Albumin Level 3.7 g/dL (3.4-5.0); Alkaline Phosphatase 86 U/L (46-116); Anion Gap 5 mmol/L (8-16); Aspartate Amino Transferase 21 U/L (15-37); Bilirubin,Total 0.4 mg/dL (0.00-1.00); Blood Urea Nitrogen 16 mg/dL (7-18); Carbon Dioxide 32 mmol/L (21-32); Chloride 102 mmol/L (98-108); Cholesterol 119 mg/dL (0-200); Creatine Kinase 163 U/L (39-308); Estimated Glomerular Filt Rate > 60; Glucose 119 mg/dL (70-99); HDL Direct 36 mg/dL (40-60); LDL Cholesterol Calculated 66 mg/dL (<130); Osmolality Calculated 290 mOsm/kg (285-295); Potassium 5.3 mmol/L (3.5-5.1); Sodium 139 mmol/L (136-145); Total Protein 7.1 g/dL (6.4-8.2); Triglycerides 85 mg/dL (0-150)
== END 2023-03-13 09:21 | disposition home or self-care (01) ==
LOC: CHSLAB 09:22
PROVIDERS: PCP Internal Medicine; Visit Provider Internal Medicine
DX: N39.0 Urinary tract infection, site not specified (principal); E11.65 Type 2 diabetes mellitus with hyperglycemia; E78.2 Mixed hyperlipidemia; I10 Essential (primary) hypertension
CPT/HCPCS: 36415; 80053; 80061; 81003; 82043; 82550; 83036; 85025

== ENCOUNTER 2023-07-18 09:04 | Outpatient (CLI) | payer OTHER, SELFPAY ==
[2023-07-18 09:15] LABS: Basophils Absolute Auto 0.04 K/mm3 (0.00-0.10); Basophils Percent Auto 0.7 % (0.0-1.0); Eosinophils Absolute Auto 0.28 K/mm3 (0.02-0.50); Eosinophils Percent Auto 4.7 % (1.0-6.0); Hemoglobin 14.5 g/dL (14.0-18.0); Immature Granulocyte Absolute 0.02 K/mm3 (0.00-0.00); Immature Granulocyte Percent A 0.3 % (0.0-0.0); Lymphocytes Absolute Auto 0.72 K/mm3 (1.10-4.50); Mean Corpuscular Hemoglobin 30.2 pg (27.0-31.0); Mean Corpuscular Volume 91.7 fL (78.0-102.0); Mean Platelet Volume 9.9 fl (8.7-11.0); Monocytes Absolute Auto 0.52 K/mm3 (0.10-0.90); Monocytes Percent Auto 8.7 % (2.0-11.0); Neutrophils Absolute Auto 4.41 K/mm3 (1.70-7.20); Neutrophils Percent Auto 73.6 % (50.0-70.0); Platelet Count Result 195 K/mm3 (150-420); Red Cell Distribution Width 12.8 % (11.6-14.4)
[2023-07-18 09:23] LABS: Hemoglobin A1C 6.1 % (<5.7)
[2023-07-18 10:22] LABS: Alanine Aminotransferase 59 U/L (16-63); Albumin Level 4.2 g/dL (3.4-5.0); Alkaline Phosphatase 83 U/L (46-116); Anion Gap 9 mmol/L (4-12); Aspartate Amino Transferase 40 U/L (15-37); Bilirubin,Total 0.6 mg/dL (0.00-1.00); Blood Urea Nitrogen 10 mg/dL (7-18); Calcium 8.8 mg/dL (8.5-10.1); Carbon Dioxide 31 mmol/L (21-32); Chloride 102 mmol/L (98-108); Estimated Glomerular Filt Rate > 60; Glucose 103 mg/dL (70-99); Osmolality Calculated 293 mOsm/kg (285-295); Potassium 4.9 mmol/L (3.5-5.1); Sodium 142 mmol/L (136-145); Total Protein 7.2 g/dL (6.4-8.2)
== END 2023-07-18 09:05 | disposition home or self-care (01) ==
LOC: CHSLAB 09:05
PROVIDERS: PCP Internal Medicine; Visit Provider Internal Medicine
DX: E11.65 Type 2 diabetes mellitus with hyperglycemia (principal); L40.50 Arthropathic psoriasis, unspecified
CPT/HCPCS: 36415; 80053; 83036; 85025

== ENCOUNTER 2024-02-27 08:37 | Outpatient (CLI) | payer OTHER, SELFPAY ==
[2024-02-27 08:50] LABS: Basophils Absolute Auto 0.06 K/mm3 (0.00-0.10); Basophils Percent Auto 1.1 % (0.0-1.0); Eosinophils Absolute Auto 0.32 K/mm3 (0.02-0.50); Hematocrit 44.1 % (40.0-54.0); Immature Granulocyte Absolute 0.02 K/mm3 (0.00-0.00); Immature Granulocyte Percent A 0.4 % (0.0-0.0); Lymphocytes Absolute Auto 0.85 K/mm3 (1.10-4.50); Lymphocytes Percent Auto 15.9 % (18.0-42.0); Mean Corpuscular Hemoglobin 30.4 pg (27.0-31.0); Mean Corpuscular Volume 89.5 fL (78.0-102.0); Mean Platelet Volume 10.1 fl (8.7-11.0); Monocytes Percent Auto 9.4 % (2.0-11.0); Neutrophils Absolute Auto 3.58 K/mm3 (1.70-7.20); Neutrophils Percent Auto 67.2 % (50.0-70.0); Platelet Count Result 198 K/mm3 (150-420); Red Blood Count 4.93 M/mm3 (4.70-6.10); Red Cell Distribution Width 12.3 % (11.6-14.4); White Blood Count 5.3 K/mm3 (4.8-10.8)
[2024-02-27 08:59] LABS: Add Urine Microscopic? NO; Appearance Urine Clear (Clear); Bilirubin Urine Negative (Negative); Blood Urine Negative (Negative); Color Urine Light Yellow (Yellow); Glucose Urine UA Negative (Negative); Ketones Urine Negative (Negative); Leukocyte Esterase Ur Negative (Negative); Nitrate Urine Negative (Negative); Protein Urine Negative (Negative); Urobilinogen Urine 0.2 mg/dL (0.2-1.0)
[2024-02-27 09:51] LABS: MALB Creatinine Ratio 11.9 mg/g (0-30); Microalbumin Urine Random < 13.0 mg/L
[2024-02-27 09:55] LABS: Hemoglobin A1C 6.5 % (<5.7)
[2024-02-27 10:01] LABS: Alanine Aminotransferase 38 U/L (16-63); Albumin Level 4.1 g/dL (3.4-5.0); Alkaline Phosphatase 84 U/L (46-116); Anion Gap 9 mmol/L (4-12); Aspartate Amino Transferase 22 U/L (15-37); Bilirubin,Total 0.5 mg/dL (0.00-1.00); Blood Urea Nitrogen 19 mg/dL (7-18); Calcium 9.3 mg/dL (8.5-10.1); Carbon Dioxide 29 mmol/L (21-32); Chloride 103 mmol/L (98-108); Cholesterol 133 mg/dL (0-200); Estimated Glomerular Filt Rate > 60; Glucose 94 mg/dL (70-99); HDL Direct 35 mg/dL (40-60); LDL Cholesterol Calculated 81 mg/dL (<130); Osmolality Calculated 294 mOsm/kg (285-295); Potassium 5.2 mmol/L (3.5-5.1); Sodium 141 mmol/L (136-145); Total Protein 7.3 g/dL (6.4-8.2); Triglycerides 84 mg/dL (0-150)
[2024-02-27 10:52] LABS: Creatine Kinase 123 U/L (39-308); Prostate Specific Antigen 0.9 ng/mL (< OR = 4.0)
== END 2024-02-27 08:38 | disposition home or self-care (01) ==
LOC: CHSLAB 08:39
PROVIDERS: PCP Internal Medicine; Visit Provider Internal Medicine
DX: E11.9 Type 2 diabetes mellitus without complications (principal); E78.5 Hyperlipidemia, unspecified; I10 Essential (primary) hypertension; Z12.5 Encounter for screening for malignant neoplasm of prostate
CPT/HCPCS: 36415; 80053; 80061; 81003; 82043; 82550; 83036; 84153; 85025; G0103

== ENCOUNTER 2024-06-03 08:45 | Outpatient (CLI) | payer OTHER, SELFPAY ==
[2024-06-03 09:09] LABS: Hematocrit 44.6 % (40.0-54.0); Hemoglobin 14.6 g/dL (14.0-18.0); Mean Corpuscular HGB Conc 32.7 g/dL (32-36); Mean Corpuscular Hemoglobin 29.5 pg (27.0-31.0); Mean Corpuscular Volume 90.1 fL (78.0-102.0); Mean Platelet Volume 9.9 fl (8.7-11.0); Platelet Count Result 188 K/mm3 (150-420); Red Blood Count 4.95 M/mm3 (4.70-6.10); Red Cell Distribution Width 14.3 % (11.6-14.4); White Blood Count 4.6 K/mm3 (4.8-10.8)
--- OUTSIDE RECORDS SUMMARY | 2024-06-03 09:15 | XMS_ITS | Patient Health Summary ---
Author Organization [facility] Address [address] [place] [address] Care Team Providers Care Sock Turner Name Role Phone Jaron Nieto MD Primary Care Provider [phone] Note from [facility],non-owned Affiliates and Associated Physician Practices is amultiple site organization consisting of ambulatory clinics and hospital sitesin [place], [place], [place] and [place]. This disclosure is being madepursuant to the Care Everywhere program and may not contain all information available regarding this patient. Last updated 18.[facility] Allergies No known active allergies Medications * Be aware that medications may not be up to date on this document. Alwaysverify current medications with the patient. * Basaglar KwikPen (BASAGLAR) pen(Started 04/27/2021) Inject 50 Units subcutaneously at bedtime * lisinopril (PRINIVIL; ZESTRIL) 20 MG tablet(Started 04/05/2021) Take 20 mg by mouth once daily * sertraline (ZOLOFT) 50 MG tablet(Started 06/14/2021) Take 50 mg by mouth once daily * amLODIPine (NORVASC) 10 MG tablet(Started 06/14/2021) Take 10 mg by mouth once daily * atorvastatin (LIPITOR) 40 MG tablet(Started 05/30/2021) Take 40 mg by mouth at bedtime * isosorbide mononitrate CR 24hr (IMDUR) 30 MG tablet(Started 06/14/2021) Take 30 mg by mouth once daily * Trulicity 1.5 MG/0.5ML injection(Started 11/21/2021) Inject 1.5 mg subcutaneously every 7 days * gabapentin (Neurontin) 600 MG tablet(Started 12/13/2021) Take 2 pills 3 times per day. 2 refills by 12/13/2022 * pantoprazole EC (Protonix) 40 MG tablet(Started 12/21/2021) Active Problems Problem Noted Date Diagnosed Date Elevated beta-2 microglobulin 12/13/2021 Type 2 diabetes mellitus wit hout complication, with long-term current use of insulin 08/14/2021 Essential (primary) hypertension 08/14/2021 GERD (gastroesophageal reflux disease) CAD (coronary artery disease) 08/14/2021 Inflammatory polyarthritis 08/14/2021 Rheumatoid factor positive 08/14/2021 Resolved Problems Problem Noted Date Diagnosed Date Resolved Date Rash 08/14/2021 01/10/2022 Immunizations * INFLUENZA VACCINE(Given 06/09/2021) * INFLUENZA VACCINE, QUADR. (FLUZONE; FLULAVAL; FLUARIX; AFLURIA QUADRIVALENT; 6MO+), 0.5 ML (IIV4)(Given 03/04/2019) * Pneumococcal Pcv13 Conj(Given 08/14/2018) * TDAP, HISTORIC VACCINE(Given 05/28/2019) * Zoster Hzv Vacc Recombinant Inj Im(Given 12/24/2018) Social History Tobacco Use Types Packs/Day Years Used Date Smoking Tobacco: Never Smokeless Tobacco: Never Alcohol Use Standard Drinks/Week Comments Not Currently 0 (1 standard drink = 0.6 oz pur e alcohol) PHQ-2 Answer Date Recorded PHQ2 TOTAL SCORE 0 11/23/2021 Sex and Gender Information Value Date Recorded Sex Assigned at Not on file Gender Identity Not on file Sexual Orientation Not on file Last Filed Vital Signs Vital Sign Reading Time Taken Comments Blood Pressure 118/70 01/02/2022 3:23 PM CDT Pulse 91 01/02/2022 3:23 PM CDT Temperature 36.6 C (97.8 F) 01/02/2022 3:23 PM CDT Respiratory Rate 16 11/23/2021 4:06 PM CDT Oxygen Saturation 97% 01/02/2022 3:23 PM CDT Inhaled Oxygen Concentration - - Weight 102.3 kg (225 lb 9.6 oz) 01/02/2022 3:23 PM CDT Height 180.3 cm (5' 11 ) 12/13/2021 8:07 AM CDT Body Mass Index 31.46 12/13/2021 8:07 AM CDT Procedures * FLOW CYTOMETRY BLOOD PROFILE(Performed 12/13/2021) Performed for Inflammatory polyarthritis (HCC), Rheumatoid factor positive, Elevated beta-2 microglobulin * PROTEIN ELECTROPHORESIS URINE RANDOM(Performed 12/13/2021) Performed for Inflammatory polyarthritis (HCC), Rheumatoid factor positive, Elevated beta-2 microglobulin * HEMOCHROMATOSIS MUTATION PANEL(Performed 12/13/2021) Performed for Inflammatory polyarthritis (HCC), Rheumatoid factor positive, Rash, Elevated beta-2 microglobulin, Type 2 diabetes mellitus without complication, with long-term current use of insulin (HCC) * HEMOGLOBIN A1C(Performed 12/13/2021) Performed for Inflammatory polyarthritis (HCC), Rheumatoid factor positive, Rash, Elevated beta-2 microglobulin, Type 2 diabetes mellitus without complication, with long-term current use of insulin (HCC) * IRON + TRANSFERRIN PANEL(Performed 12/13/2021) Performed for Inflammatory polyarthritis (HCC), Rheumatoid factor positive, Rash, Elevated beta-2 microglobulin, Type 2 diabetes mellitus without complication, with long-term current use of insulin (HCC) * PROBRAIN NATRIURETIC PEPTIDE N TERMINAL(Performed 12/13/2021) Performed for Inflammatory polyarthritis (HCC), Rheumatoid factor positive, Rash, Elevated beta-2 microglobulin * B-TYPE NATRIURETIC PEPTIDE(Performed 12/13/2021) Performed for Inflammatory polyarthritis (HCC), Rheumatoid factor positive, Rash, Elevated beta-2 microglobulin * TROPONIN I(Performed 12/13/2021) Performed for Inflammatory polyarthritis (HCC), Rheumatoid factor positive, Rash, Elevated beta-2 microglobulin * PROTEIN ELECTROPHORESIS BLOOD(Performed 12/13/2021) Performed for Inflammatory polyarthritis (HCC), Rheumatoid factor positive, Rash, Elevated beta-2 microglobulin * PROTEIN CREATININE RATIO URINE RANDOM PNL(Performed 12/13/2021) Performed for Inflammatory polyarthritis (HCC), Rheumatoid factor positive, Rash, Elevated beta-2 microglobulin * URINALYSIS W/MICROSCOPIC REFLEX TO CULTURE(Performed 12/13/2021) Performed for Inflammatory polyarthritis (HCC), Rheumatoid factor positive, Rash, Elevated beta-2 microglobulin * COMPREHENSIVE METABOLIC PANEL(Performed 12/13/2021) Performed for Inflammatory polyarthritis (HCC), Rheumatoid factor positive, Rash, Elevated beta-2 microglobulin * CBC W AUTO DIFFERENTIAL(Performed 12/13/2021) Performed for Inflammatory polyarthritis (HCC), Rheumatoid factor positive, Rash, Elevated beta-2 microglobulin * RHEUMATOID FACTOR BLOOD QUANTITATIVE(Performed 12/13/2021) Performed for Inflammatory polyarthritis (HCC), Rheumatoid factor positive, Elevated beta-2 microglobulin * FACTOR X ASSAY(Performed 12/13/2021) Performed for Inflammatory polyarthritis (HCC), Rheumatoid factor positive, Elevated beta-2 microglobulin * PROTEIN ELECTROPHORESIS URINE RANDOM(Performed 11/23/2021) Performed for Rheumatoid factor positive, Inflammatory polyarthritis (HCC) * VITAMIN D 1,25 DIHYDROXY(Performed 11/23/2021) Performed for Inflammatory polyarthritis (HCC), Rheumatoid factor positive, Rash * KAPPA/LAMBDA LITE CHAIN FREE PANEL(Performed 11/23/2021) Performed for Inflammatory polyarthritis (HCC), Rheumatoid factor positive, Rash * TKIC-5-DUFZUUWEAFFUR BLOOD(Performed 11/23/2021) Performed for Inflammatory polyarthritis (HCC), Rheumatoid factor positive, Rash * CYCLIC CITRULLINATED PEPTIDE(CCP) AB IGG(Performed 11/23/2021) Performed for Inflammatory polyarthritis (HCC), Rheumatoid factor positive, Rash * RHEUMATOID FACTOR IGG/IGM/IGA AB(Performed 11/23/2021) Performed for Inflammatory polyarthritis (HCC), Rheumatoid factor positive, Rash * TSH REFLEX FREE T4(Performed 11/23/2021) Performed for Inflammatory polyarthritis (HCC), Rheumatoid factor positive, Rash * FERRITIN(Performed 11/23/2021) Performed for Inflammatory polyarthritis (HCC), Rheumatoid factor positive, Rash * ERYTHROCYTE SEDIMENTATION RATE(Performed 11/23/2021) Performed for Inflammatory polyarthritis (HCC), Rheumatoid factor positive, Rash * C-REACTIVE PROTEIN(Performed 11/23/2021) Performed for Inflammatory polyarthritis (HCC), Rheumatoid factor positive, Rash * XR KNEE RIGHT 3VW(Performed 08/14/2021) Performed for Inflammatory polyarthritis (HCC), Rash, Rheumatoid factor positive * XR KNEE LEFT 3VW(Performed 08/14/2021) Performed for Inflammatory polyarthritis (HCC), Rash, Rheumatoid factor positive * XR SI JOINTS 3VW OR MORE(Performed 08/14/2021) Performed for Inflammatory polyarthritis (HCC), Rash, Rheumatoid factor positive * XR WRIST LEFT 2VW(Performed 08/14/2021) Performed for Inflammatory polyarthritis (HCC), Rash, Rheumatoid factor positive * XR WRIST RIGHT 2VW(Performed 08/14/2021) Performed for Inflammatory polyarthritis (HCC), Rash, Rheumatoid factor positive * XR HAND RIGHT 3VW OR MORE(Performed 08/14/2021) Performed for Inflammatory polyarthritis (HCC), Rash, Rheumatoid factor positive * XR HAND LEFT 3VW OR MORE(Performed 08/14/2021) Performed for Inflammatory polyarthritis (HCC), Rash, Rheumatoid factor positive * XR FOOT RIGHT 3VW OR MORE(Performed 08/14/2021) Performed for Inflammatory polyarthritis (HCC), Rash, Rheumatoid factor positive * XR FOOT LEFT 3VW OR MORE(Performed 08/14/2021) Performed for Inflammatory polyarthritis (HCC), Rash, Rheumatoid factor positive * CYCLIC CITRULLINATED PEPTIDE(CCP) AB IGG(Performed 08/14/2021) Performed for Inflammatory polyarthritis (HCC), Rash, Rheumatoid factor positive * RHEUMATOID FACTOR IGG/IGM/IGA AB(Performed 08/14/2021) Performed for Inflammatory polyarthritis (HCC), Rash, Rheumatoid factor positive * QUANTIFERON-TB GOLD PLUS 4-TUBE(Performed 08/14/2021) Performed for Inflammatory polyarthritis (HCC), Rash, Rheumatoid factor positive, Screening for tuberculosis * TSH REFLEX FREE T4(Performed 08/14/2021) Performed for Inflammatory polyarthritis (HCC), Rash, Rheumatoid factor positive * HEPATITIS C ANTIBODY(Performed 08/14/2021) Performed for Inflammatory polyarthritis (HCC), Rash, Rheumatoid factor positive, Need for hepatitis C screening test * HEPATITIS B SURFACE ANTIGEN W RFLX CONFIRMATION(Performed 08/14/2021) Performed for Inflammatory polyarthritis (HCC), Rash, Rheumatoid factor positive, Need for hepatitis B screening test * HEPATITIS B SURFACE ANTIBODY(Performed 08/14/2021) Performed for Inflammatory polyarthritis (HCC), Rash, Rheumatoid factor positive, Need for hepatitis B screening test * HEPATITIS B CORE ANTIBODY TOTAL(Performed 08/14/2021) Performed for Inflammatory polyarthritis (HCC), Rash, Rheumatoid factor positive, Need for hepatitis B screening test * ERYTHROCYTE SEDIMENTATION RATE(Performed 08/14/2021) Performed for Inflammatory polyarthritis (HCC), Rash, Rheumatoid factor positive * C-REACTIVE PROTEIN(Performed 08/14/2021) Performed for Inflammatory polyarthritis (HCC), Rash, Rheumatoid factor positive * COMPREHENSIVE METABOLIC PANEL(Performed 08/14/2021) Performed for Inflammatory polyarthritis (HCC), Rash, Rheumatoid factor positive * CBC W AUTO DIFFERENTIAL(Performed 08/14/2021) Performed for Inflammatory polyarthritis (HCC), Rash, Rheumatoid factor positive * CULTURE AEROBIC(Performed 06/16/2021) Performed for Secondary infection of skin Results * FLOW CYTOMETRY BLOOD PROFILE (12/13/2021 9:38 AM CDT) Case Report Flow Cytometry Case: [id number] Authorizing Provider: Rufino Srinivasan MD Collected: 12/13/2021 09:38 AM Ordering Location: [facility] OP DRAW STATION Received: 12/13/2021 10:19 AM Pathologist: Mei Siu Mai, DO Specimen: Blood 12/13/2021 5:38 PM T [facility] Final Diagnosis Peripheral blood, flow cytometric immunophenotypic analysis: - No evidence of non-Hodgkin lymphoma or high grade myeloid neoplasm - See interpretation 12/13/2021 5:38 PM [facility] Flow Cytometry Results Differential Result Comment WBC Count /uL 4,400 Total Viability % 100.0 Lymphocytes % 23 Dim CD45 Region % 1 Monocytes % 14 Granulocytes % 61 12/13/2021 5:38 PM [facility] Flow Cytometry Interpretation The peripheral blood specimen has a viability of 100%. The lymphocyte, dim CD45, monocyte, and granulocyte venegas are normal in relative proportion. Within the lymphocyte gate, there is no monotypic B-cell population identified (kappa: lambda ratio = 1.6:1). There is no significant blast population identified. T-cell analysis shows a CD4/CD8 ratio of 1.7 and no significant immunophenotypic abnormality. A peripheral blood smear prepared from the flow cytometry specimen is reviewed for quality assurance consultant purposes. Overall, the peripheral blood specimen shows no evidence of involvement by a non-Hodgkin lymphoma or a high-grade myeloid neoplasm. Correlation with clinical findings is required. 12/13/2021 5:38 PM CDT [facility] Reason for test Inflammatory polyarthritis 714.9 Rheumatoid factor positive 795.79 Elevated beta-2 microglobulin 796.4 12/13/2021 5:38 PM CDT [facility] Client Specimen ID # [id number] 12/13/2021 5:38 PM T [facility] Disclaimer Test performed at [facility], [address], [place], [address]. *The established laboratory minimum viability is 70%. Values below the minimum may result in the failure to find an abnormal population of cells. This test was developed and its performance characteristics determined by the Flow Cytometry Laboratory. It has not been cleared by the [place] Food and Drug Administration (FDA). The FDA has determined that such clearance or approval is not necessary. This test is used for clinical purposes. It should not be regarded as investigational or for research. This laboratory is regulated under the Clinical Laboratory Improvement Amendments of 1998 (CLIA) as a qualified to perform high complexity clinical testing. 12/13/2021 5:38 PM CDT [facility] Embedded Images 5:38 PM CDT [facility] Number of markers 19 were performed. A-2 Flow CD10 A-3 Flow CD13 A-5 Flow CD20 A-11 Flow CD3 A-12 Flow CD4 A-14 FLow CD16 A-1 Flow CD5 A-4 Flow CD19 A-6 Flow CD33 A-7 Flow CD34 A-8 Flow CD45 A-13 Flow CD8 A-15 Flow CD26 A-16 Flow CD56 A-17 Flow CD57 A-18 TCR-AB A-19 TCR-GD A-9 Guin+CD19+ A-10 Lambda+CD19+ 12/13/2021 5:38 PM CDT [facility] Blood BLOOD SPECIMEN / Unknown Lab Venipuncture / Unknown 12/13/2021 9:38 AM CDT 12/13/2021 10:19 AM CDT Rufino Srinivasan MD LAB - PATHOLOGY/CYTO LOGY ORDERABLES [facility] [address] [place], [place] [address] [place] [address] * PROBRAIN NATRIURETIC PEPTIDE N TERMINAL (12/13/2021 9:38 AM CDT) NT-proBNP 79 0 - 124 pg/mL 12/15/2021 8:17 AM CDT [facility] ([facility]) Comment: REFERENCE INTERVAL: NT-Probnp Natriuretic Peptide Access complete set of age- and/or gender-specific reference intervals for this test in the [email or web address] Test Directory [email or web address]). Performed By: [facility] [employer] [address] [place] [address] Compensation Programs Manager: Rashaad Arita MD, PhD Blood BLOOD SPECIMEN / Unknown Lab Venipuncture / Unknown 12/13/2021 9:38 AM CDT 12/13/2021 10:30 AM CDT Rufino Srinivasan MD LAB - CHEMISTRY EVAN SNYDER Performing Organization Address City/State/[facility] Co de Phone Number [facility]) [address] [place] [address] * URINALYSIS W/MICROSCOPIC REFLEX TO CULTURE (12/13/2021 9:38 AM CDT) Color UA Yellow Straw, Yellow 12/13/2021 10:25 AM CDT [facility] Clarity UA Clear Clear 12/13/2021 10:25 AM CDT [facility] Specific Hurley UA 1.006 1.005 - 1.030 12/13/2021 10:25 AM CDT [facility] pH UA 6.0 5.0 - 8.0 pH 12/13/2021 10:25 AM CDT [facility] Protein UA Negative Negative 12/13/2021 10:25 AM CDT [facility] Glucose UA Negative Negative 12/13/2021 10:25 AM CDT [facility] Ketone UA Negative Negative 12/13/2021 10:25 AM CDT [facility] Bilirubin UA Negative Negative 12/13/2021 10:25 AM CDT [facility] Blood UA Negative Negative 12/13/2021 10:25 AM CDT [facility] Nitrite UA Negative Negative 12/13/2021 10:25 AM CDT [facility] Leukocyte Esterase Negative Negative 12/13/2021 10:25 AM CDT [facility] Urobilinogen UA Negative Negative mg/dL 12/13/2021 10:25 AM T [facility] RBC UA None Seen None Seen, 0-2, 3-5 /HPF 12/13/2021 10:25 AM CDT [facility] WBC UA 0-5 None Seen, 0-5 /HPF 12/13/2021 10:25 AM T [facility] Squamous Epithelial Cells UA None Seen None Seen, 0-2, 3-5 /HPF 12/13/2021 10:25 AM CDT [facility] Urine URINE SPECIMEN OBTAINED BY CLEAN CATCH PROCEDURE / Unknown Collection / Unknown 12/13/2021 9:38 AM CDT 12/13/2021 10:14 AM CDT Narrative [facility] - 12/13/2021 10:25 AM CDT Culture Not Indicated Rufino Srinivasan MD LAB - URINALYSIS ORD ERABLES [address] [address], [facility] [phone] * PROTEIN ELECTROPHORESIS URINE RANDOM (12/13/2021 9:38 AM CDT) Only the most recent of2 resultswithin the time period is included. Interpretation Urine PE See Comment Normal Pattern 12/19/2021 5:46 PM T [facility] Comment: Urine protein electrophoresis shows a band corresponding to albumin with small amounts of other nonspecific proteinuria. No monoclonal immunoglobulins detected. Bebe Gallegos PhD, [facility] Clinical Cell Attendant Helper bead builder Protein Urine <7 Not Established mg/dL 12/19/2021 5:46 PM T [facility] Urine URINE SPECIMEN OBTAINED BY CLEAN CATCH PROCEDURE / Unknown Collection / Unknown 12/13/2021 9:38 AM CDT 12/13/2021 10:14 AM CDT Rufino Srinivasan MD LAB - URINE CHEMISTR Y ORDERABLES [address] [address], [facility] [phone] * HEMOCHROMATOSIS MUTATION PANEL (12/13/2021 9:38 AM CDT) HFE C282Y Mutation Negative 2021 10:09 PM CDT [facility] ([facility]) HFE Specimen Source Whole Blood 12/18/2021 10:09 PM CDT [facility] ([facility]) HFE H63D Mutation Negative 022 10:09 PM CDT [facility] ([facility]) HFE S65C Mutation Negative 10:09 PM CDT [facility] ([facility]) Interpretation HFE Mutation See Note 12/18/2021 10:09 PM CDT [facility] ([facility]) Comment: Indication for testing: Carrier screening or diagnostic testing for hereditary hemochromatosis. Hemochromatosis Interpretive Results: Negative WT: C282Y: Negative - The patient is negative for the HFE C282Y mutation. H63D: Negative - The patient is negative for the HFE H63D mutation. S65C: Negative - The patient is negative for the HFE S65C mutation. Mutations in unidentified genes or other mutations in the HFE gene are not ruled out. This result has been reviewed and approved by Ashanti Antoine, Ph.D. BACKGROUND INFORMATION: Hemochromatosis (HFE) 3 Mutations CHARACTERISTICS: Disorder of iron metabolism resulting in excessive iron storage leading to increased skin pigmentation, arthritis, hypogonadism, diabetes mellitus, heart arrhythmias/failure, cirrhosis and liver carcinoma. INCIDENCE: One in 300 individuals of [place] descent; unknown in other ethnicities. INHERITANCE: Autosomal recessive. PENETRANCE: 5 percent of C282Y homozygotes, 1 percent of C282Y/H63D compound heterozygotes and rare H63D homozygotes develop clinical symptoms. CAUSE: Two pathogenic HFE gene mutations on opposite chromosomes. MUTATIONS TESTED: p.C282Y (c.845G>A), p.H63D (c.187C>G), and p.S65C (c.193A>T). CLINICAL SENSITIVITY: 85 percent of hereditary hemochromatosis in Northern Europeans is caused by C282Y homozygosity and 5 percent by C282Y/H63D compound heterozygosity. METHODOLOGY: PCR and fluorescence monitoring. ANALYTICAL SENSITIVTY AND SPECIFICITY: 99 percent. LIMITATIONS: HFE mutations, other than those targeted, will not be detected. Diagnostic errors can occur due to rare sequence variations. This test was developed and its performance characteristics determined by [employer]. It has not been cleared or approved by the [place] Food and Drug Administration. This test was performed in a CLIA certified laboratory and is intended for clinical purposes. Counseling and informed consent are recommended for genetic testing. Consent forms are available online. Performed by [facility], [address] [place] [id number] [email or web address], Rashaad Arita MD, PHD, Lab. Director Blood BLOOD SPECIMEN / Unknown Lab Venipuncture / Unknown 12/13/2021 9:38 AM CDT 12/13/2021 10:16 AM CDT Rufino Srinivasan MD LAB - CHEMISTRY EVAN SNYDER [facility] ([facility]) [address] [place] [address] * TROPONIN I (12/13/2021 9:38 AM CDT) Troponin I 0.014 <0.032 ng/mL 12/13/2021 11:00 AM CDT [facility] Blood BLOOD SPECIMEN / Unknown Lab Venipuncture / Unknown 12/13/2021 9:38 AM CDT 12/13/2021 10:17 AM CDT Rufino Srinivasan MD LAB - CHEMISTRY EVAN SNYDER [facility] [address] [place] [address], [facility] [phone] * RHEUMATOID FACTOR BLOOD QUANTITATIVE (12/13/2021 9:38 AM CDT) Rheumatoid Factor <15 <30 IU/mL 12/13/2021 11:08 AM CDT [facility] Rheumatoid Factor Screen Negative Negative 12/13/2021 11:08 AM CDT [facility] Blood BLOOD SPECIMEN / Unknown Lab Venipuncture / Unknown 12/13/2021 9:38 AM CDT 12/13/2021 10:16 AM CDT Rufino Srinivasan MD LAB - CHEMISTRY ORDE RABLES [address] [address], [facility] [phone] * FACTOR X ASSAY (12/13/2021 9:38 AM CDT) Factor X Activity 72 70 - 120 % 12/13/2021 1:21 PM CDT [facility] Blood BLOOD SPECIMEN / Unknown Lab Venipuncture / Unknown 12/13/2021 9:38 AM CDT 12/13/2021 10:17 AM CDT Rufino Srinivasan MD LAB - COAGULATION OR DERABLES Performing Organization Address [facility]/ZIP Co de Phone Number [address] [address], [facility] [phone] * (ABNORMAL) HEMOGLOBIN A1C (12/13/2021 9:38 AM CDT) Hemoglobin A1c 9.6(H) <=5.6 % 12/13/2021 11:50 AM CDT [facility] Estimated Average Glucose 229 mg/dL 12/13/2021 11:50 AM CDT [facility] Comment: HbA1c Interpretation: Normal : < 5.7% Pre-diabetes: 5.7-6.4% Diabetes: Equal to or greater than 6.5% Test results diagnostic of diabetes should be repeated for confirmation. Treatment target values recommended by ADA and other clinical organizations should be used to evaluate metabolic control in patients. Reference: [place] [employer], Standards of Care in Diabetes -2020 In patients 70 years and older consider HbA1c target range of 7.0-7.5% (Reference: Booker Gross et al. JAMDA. 2012) The Sebia assay for the measurement of HbA1c is a National Glycohemoglobin Standardization Program (NGSP) certified method. Blood BLOOD SPECIMEN / Unknown Lab Venipuncture / Unknown 12/13/2021 9:38 AM CDT 12/13/2021 10:17 AM CDT Rufino Srinivasan MD LAB - CHEMISTRY EVAN SNYDER [facility] Organization Address City/State/ZIP Co de Phone Number [facility] [address] [place] [address], [facility] [phone] * (ABNORMAL) CBC WITH DIFFERENTIAL (12/13/2021 9:38 AM CDT) Only the most recent of2 resultswithin the time period is included. WBC 4.4 3.5 - 10.5 10 3/uL 12/13/2021 10:26 AM [facility] RBC 5.33 4.30 - 5.70 10 6/uL 12/13/2021 10:26 AM [facility] Hemoglobin 14.2 12.0 - 17.6 g/dL 12/13/2021 10:26 AM [facility] Hematocrit 45.0 35.2 - 51.7 % 12/13/2021 10:26 AM [facility] MCV 84.4 80.7 - 98.3 fL 12/13/2021 10:26 AM [facility] MCH 26.6(L) 26.7 - 34.0 pg 12/13/2021 10:26 AM [facility] MCHC 31.6 30.8 - 35.9 g/dL 12/13/2021 10:26 AM [facility] Platelet Count 198 150 - 400 10 3/uL 12/13/2021 10:26 AM [facility] RDW-SD 43.3 36.0 - 50.0 fL 12/13/2021 10:26 AM [facility] RDW-CV 14.1 11.2 - 14.8 % 12/13/2021 10:26 AM [facility] MPV 11.2 9.4 - 12.9 fL 12/13/2021 10:26 AM [facility] nRBC Absolute 0.00 0 10 3/uL 12/13/2021 10:26 AM [facility] nRBC Auto 0.0 0 /100 WBC 12/13/2021 10:26 AM [facility] Neutrophils % 62.4 35.0 - 70.0 % 12/13/2021 10:26 AM [facility] Lymphocytes % 20.0 20.0 - 43.0 % 12/13/2021 10:26 AM [facility] Monocytes % 11.0 5.0 - 13.0 % 12/13/2021 10:26 AM [facility] Eosinophils % 5.7 0.0 - 6.0 % 12/13/2021 10:26 AM [facility] Basophil % 0.7 0.0 - 2.0 % 12/13/2021 10:26 AM [facility] Neutrophils Absolute 2.72 1.60 - 7.00 10 3/uL 12/13/2021 10:26 AM [facility] Lymphocyte Absolute 0.87(L) 1.10 - 3.90 10 3/uL 12/13/2021 10:26 AM [facility] Monocytes Absolute 0.48 0.26 - 1.07 10 3/uL 12/13/2021 10:26 AM [facility] Eosinophils Absolute 0.25 0.00 - 0.47 10 3/uL 12/13/2021 10:26 AM [facility] Basophils Absolute 0.03 0.00 - 0.08 10 3/uL 12/13/2021 10:26 AM [facility] Immature Granulocytes % 0.2 0.0 - 1.0 % 12/13/2021 10:26 AM [facility] Immature Granulocytes Absolute 0.01 12/13/2021 10:26 AM [facility] Blood BLOOD SPECIMEN / Unknown Lab Venipuncture / Unknown 12/13/2021 9:38 AM CDT 12/13/2021 10:17 AM CDT Rufino Srinivasan MD LAB - HEMATOLOGY ORD ERABLES [facility] [address] [place] [phone], [facility] [phone] * B-TYPE NATRIURETIC PEPTIDE (12/13/2021 9:38 AM CDT) BNP 46 <100 pg/mL 12/13/2021 11:00 AM [facility] Comment: A decision threshold of 100 pg/mL has been demonstrated to provide the maximal combination of sensitivity, specificity and predictive value for the diagnosis of congestive heart failure (CHF). Virtually all patients with no evidence of CHF have BNP values less than 100 pg/mL. A BNP value greater than 100 pg/mL is consistent with the diagnosis of CHF in the appropriate clinical setting. In a study of 693 patients (male and female) with diagnosed CHF, the following values were determined based on the NYHA functional classification system: NYHA Functional Class Mean Valule (pg/mL) % >100 pg/mL I 320 58.1 II 432 73.0 III 656 79.0 IV 1635 98.3 Blood BLOOD SPECIMEN / Unknown Lab Venipuncture / Unknown 12/13/2021 9:38 AM CDT 12/13/2021 10:17 AM CDT Rufino Srinivasan MD LAB - CHEMISTRY EVAN SNYDER [facility] Organization Address City/State/ZIP Co de Phone Number [facility] [address] [place] [phone], [facility] [phone] * (ABNORMAL) COMPREHENSIVE METABOLIC PANEL (12/13/2021 9:38 AM CDT) Only the most recent of2 resultswithin the time period is included. BUN 12 7 - 26 mg/dL 12/13/2021 10:55 AM [facility] Creatinine 0.79 0.71 - 1.16 mg/dL 12/13/2021 10:55 AM [facility] Sodium 137 136 - 145 mmol/L 12/13/2021 10:55 AM [facility] Potassium 4.0 3.5 - 4.5 mmol/L 12/13/2021 10:55 AM [facility] Chloride 104 98 - 107 mmol/L 12/13/2021 10:55 AM [facility] CO2 23 22 - 29 mmol/L 12/13/2021 10:55 AM [facility] Glucose 121(H) 70 - 115 mg/dL 12/13/2021 10:55 AM [facility] Calcium 9.3 8.4 - 10.2 mg/dL 12/13/2021 10:55 AM [facility] Protein Total 7.5 6.0 - 8.3 g/dL 12/13/2021 10:55 AM [facility] Albumin 4.0 3.4 - 5.0 g/dL 12/13/2021 10:55 AM [facility] Bilirubin Total 0.4 0.2 - 1.2 mg/dL 12/13/2021 10:55 AM [facility] Alkaline Phosphatase 70 40 - 150 U/L 12/13/2021 10:55 AM [facility] ALT 32 5 - 55 U/L 12/13/2021 10:55 AM [facility] AST 24 5 - 34 U/L 12/13/2021 10:55 AM [facility] Anion Gap 14 8 - 18 12/13/2021 10:55 AM [facility] BUN/Creatinine Ratio 15 7 - 23 12/13/2021 10:55 AM [facility] Osmolality Calculated 285 270 - 300 mOsm/kg 12/13/2021 10:55 AM [facility] Albumin/Globulin Ratio 1.1 1.1 - 2.3 12/13/2021 10:55 AM [facility] eGFR by CKD-EPI >90 >=90 mL/min/1.7 3 m2 12/13/2021 10:55 AM [facility] Blood BLOOD SPECIMEN / Unknown Lab Venipuncture / Unknown 12/13/2021 9:38 AM CDT 12/13/2021 10:17 AM [facility] Rufino Srinivasan MD LAB - CHEMISTRY EVAN SNYDER [facility] Organization Address City/State/ZIP Co de Phone Number [facility] [address] [place] [phone], [facility] [phone] * PROTEIN CREATININE RATIO URINE RANDOM PNL (12/13/2021 9:38 AM CDT) Protein Urine <7 Not Established mg/dL 12/13/2021 10:37 AM [facility] Creatinine Urine 74 Not Established mg/dL 12/13/2021 10:37 AM CDT [facility] Protein/Creatinin e Ratio Urine 12/13/2021 10:37 AM T [facility] Comment:Unable to calculate ratio because the analyte concentration is outside the instrument measuring range. Urine URINE SPECIMEN OBTAINED BY CLEAN CATCH PROCEDURE / Unknown Collection / Unknown 12/13/2021 9:38 AM CDT 12/13/2021 10:14 AM CDT Rufino Srinivasan MD LAB - URINE CHEMISTR Y ORDERABLES [facility] [address] [place] [address], [facility] [phone] * PROTEIN ELECTROPHORESIS BLOOD (12/13/2021 9:38 AM CDT) Interpretation Serum PE Normal Pattern Normal Pattern 12/19/2021 5:46 PM [facility] Comment: Serum capillary electrophoresis shows characteristic bands corresponding to albumin, alpha and beta globulins and polyclonal immunoglobulins. No monoclonal immunoglobulin detected. Non-secretory myeloma (NSM) and light chain only myeloma cannot be excluded based on this result. Recommend serum free light chain measurements for complete evaluation of plasma cell disorders. Abimbola Hernadez MD Pathology resident PGY1 *The electrophoresis pattern and the interpretation have been reviewed and verified by the teaching physician. Protein Total 7.1 6.0 - 8.3 g/dL 12/19/2021 5:46 PM [facility] Albumin 3.8 3.3 - 5.6 g/dL 12/19/2021 5:46 PM [facility] Alpha-1 Globulins 0.3 0.2 - 0.4 g/dL 12/19/2021 5:46 PM [facility] Alpha-2 Globulins 0.9 0.5 - 1.0 g/dL 12/19/2021 5:46 PM [facility] Beta Globulins 1.0 0.6 - 1.1 g/dL 12/19/2021 5:46 PM [facility] Gamma Globulins 1.1 0.6 - 1.6 g/dL 12/19/2021 5:46 PM [facility] Blood BLOOD SPECIMEN / Unknown Lab Venipuncture / Unknown 12/13/2021 9:38 AM CDT 12/13/2021 10:16 AM CDT Rufino Srinivasan MD LAB - CHEMISTRY EVAN SNYDER Performing Organization Address [facility]/ZIP Co de Phone Number [facility] [address] [address], [facility] [phone] * IRON + TRANSFERRIN PANEL (12/13/2021 9:38 AM CDT) Iron 131 50 - 175 ug/dL 12/13/2021 10:45 AM CDT [facility] Transferrin 322 174 - 382 mg/dL 12/13/2021 10:45 AM CDT [facility] Transferrin Saturation % 33 16 - 50 % 12/13/2021 10:45 AM CDT [facility] TIBC Calculated 403 240 - 450 ug/dL 12/13/2021 10:45 AM CDT [facility] Blood BLOOD SPECIMEN / Unknown Lab Venipuncture / Unknown 12/13/2021 9:38 AM CDT 12/13/2021 10:16 AM CDT Rufino Srinivasan MD LAB - CHEMISTRY EVAN SNYDER Performing Organization Address [facility] Co de Phone Number [address] [address], [place] [phone] * (ABNORMAL) RHEUMATOID FACTOR IGG/IGM/IGA AB (11/23/2021 4:52 PM CDT) Only the most recent of2 resultswithin the time period is included. Rheumatoid Factor IgA by Mitra 8(H) <=6 Units 11/29/2021 9:13 PM CDT [facility] ([facility]) Comment: INTERPRETIVE INFORMATION: Rheumatoid Factor, IgA by MITRA The presence of all three rheumatoid factor (RF) isotypes at abnormal levels has high specificity for a diagnosis of rheumatoid arthritis (RA). However, the presence of RF isotypes in any combination may be found in a variety of conditions, including Sjogren syndrome and hepatitis infections. Rheumatoid Factor IgM by Mitra 12(H) <=6 Units 11/29/2021 9:13 PM CDT [facility] ([facility]) Comment: INTERPRETIVE INFORMATION: Rheumatoid Factor, IgM by MITRA The presence of all three rheumatoid factor (RF) isotypes at abnormal levels has high specificity for a diagnosis of rheumatoid arthritis (RA). However, the presence of RF isotypes in any combination may be found in a variety of conditions, including Sjogren syndrome and hepatitis infections. Rheumatoid Factor IgG by Mitra 6 <=6 Units 11/29/2021 9:13 PM CDT [facility] ([facility]) Comment: INTERPRETIVE INFORMATION: Rheumatoid Factor, IgG by MITRA The presence of all three rheumatoid factor (RF) isotypes at abnormal levels has high specificity for a diagnosis of rheumatoid arthritis (RA). However, the presence of RF isotypes in any combination may be found in a variety of conditions, including Sjogren syndrome and hepatitis infections. Performed By: [place] [address] Compensation Programs Manager: Rashaad Arita MD, PhD Blood BLOOD SPECIMEN / Unknown Lab Venipuncture / Unknown 11/23/2021 4:52 PM CDT 11/23/2021 5:01 PM CDT Rufino Srinivasan MD LAB - SEROLOGY ORDER [facility]) [address] [place] [address] * TSH REFLEX FREE T4 (11/23/2021 4:52 PM CDT) Only the most recent of2 resultswithin the time period is included. TSH 3.230 0.350 - 4.940 uIU/mL 11/23/2021 5:55 PM CDT [facility] Blood BLOOD SPECIMEN / Unknown Lab Venipuncture / Unknown 11/23/2021 4:52 PM CDT 11/23/2021 5:06 PM CDT Rufino Srinivasan MD LAB - CHEMISTRY ORDE CLAUDIO [address] [address], [facility] [phone] * C-REACTIVE PROTEIN (11/23/2021 4:52 PM CDT) Only the most recent of2 resultswithin the time period is included. Pathologist [facility] [place] C-Reactive Protein <0.5 <=0.5 mg/dL 11/23/2021 5:39 PM CDT [facility] Blood BLOOD SPECIMEN / Unknown Lab Venipuncture / Unknown 11/23/2021 4:52 PM CDT 11/23/2021 5:01 PM CDT Rufino Srinivasan MD LAB - CHEMISTRY EVAN SNYDER [place] [phone], [facility] [phone] * VITAMIN D 1,25 DIHYDROXY (11/23/2021 4:52 PM CDT) [facility] Vitamin D, 1,25 Dihydroxy 63.4 19.9 - 79.3 pg/mL 11/26/2021 4:34 AM CDT [facility] ([facility]) Comment: INTERPRETIVE INFORMATION: Vitamin D, 1,25-Dihydroxy This test is primarily indicated during patient evaluation for hypercalcemia and renal failure. A normal result does not rule out Vitamin D deficiency. The recommended test for diagnosing Vitamin D deficiency is Vitamin D 25-hydroxy. Performed By: [facility] [address] [place] [address] Compensation Programs Manager: Rashaad Arita MD, PhD Blood BLOOD SPECIMEN / Unknown Lab Venipuncture / Unknown 11/23/2021 4:52 PM CDT 11/23/2021 5:01 PM CDT Rufino Srinivasan MD LAB - CHEMISTRY EVAN SNYDER [facility] [address] * (ABNORMAL) KWJH-2-EOHRJPSLWIGNM BLOOD (11/23/2021 4:52 PM CDT) Pathologist [facility] [place] Beta-2 Microglobulin 2.7(H) 1.0 - 2.6 mg/L 11/23/2021 5:39 PM CDT [facility] Blood BLOOD SPECIMEN / Unknown Lab Venipuncture / Unknown 11/23/2021 4:52 PM CDT 11/23/2021 5:01 PM CDT Rufino Srinivasan MD LAB - CHEMISTRY EVAN SNYDER [address] [address], [facility] [phone] * CYCLIC CITRULLINATED PEPTIDE(CCP) AB IGG (11/23/2021 4:52 PM CDT) Only the most recent of2 resultswithin the time period is included. Pathologist [facility] [place] CCP Antibody IgG <0.5 <5.0 U/mL 11/23/2021 6:04 PM CDT [facility] Blood BLOOD SPECIMEN / Unknown Lab Venipuncture / Unknown 11/23/2021 4:52 PM CDT 11/23/2021 5:01 PM CDT Rufino Srinivasan MD LAB - CHEMISTRY EVAN SNYDER Performing Organization Address City/[facility]/ZIP Co de Phone Number [address] [phone], [facility] [phone] * (ABNORMAL) KAPPA/LAMBDA LITE CHAIN FREE PANEL (11/23/2021 4:52 PM CDT) Pathologist [facility] [place] Guin Quant Free Light Chain 34.13(H) 3.30 - 19.40 mg/L 11/25/2021 9:00 PM CDT [facility] ([facility]) Comment: INTERPRETIVE INFORMATION: Guin Qnt Free Light Chains Undetected antigen excess is a rare event but cannot be excluded. Free light chain results should always be interpreted in conjunction with other clinical and laboratory findings. Lambda Free Light Chain Quantitative 25.33 5.71 - 26.30 mg/L 11/25/2021 9:00 PM CDT [facility] ([facility]) Comment: INTERPRETIVE INFORMATION: Lambda Qnt Free Light Chains Undetected antigen excess is a rare event but cannot be excluded. Free light chain results should always be interpreted in conjunction with other clinical and laboratory findings. Guin/Lambda Free Light Chain ratio 1.35 0.26 - 1.65 11/25/2021 9:00 PM CDT [facility] [facility] ([facility]) Comment: Performed By: [facility] [address] [place] [id number] Compensation Programs Manager: Rashaad Arita MD, PhD Blood BLOOD SPECIMEN / Unknown Lab Venipuncture / Unknown 11/23/2021 4:52 PM CDT 11/23/2021 5:01 PM CDT Rufino Srinivasan MD LAB - CHEMISTRY EVAN SNYDER Performing Organization Address City/[facility]/ZIP Co de Phone Number [facility]) [address] [place] [address] * ERYTHROCYTE SEDIMENTATION RATE (11/23/2021 4:52 PM CDT) Only the most recent of2 resultswithin the time period is included. Erythrocyte Sedimentation Rate Westergren 19 0 - 20 MM/HR 11/23/2021 5:27 PM CDT [facility] Blood BLOOD SPECIMEN / Unknown Lab Venipuncture / Unknown 11/23/2021 4:52 PM CDT 11/23/2021 5:06 PM CDT Rufino Srinivasan MD LAB - HEMATOLOGY ORD PREETI Performing Organization Address [facility]/ZIP Co de Phone Number [address] [phone], [facility] [phone] * (ABNORMAL) FERRITIN (11/23/2021 4:52 PM CDT) Ferritin 16(L) 22 - 275 ng/mL 11/23/2021 6:04 PM CDT [facility] Blood BLOOD SPECIMEN / Unknown Lab Venipuncture / Unknown 11/23/2021 4:52 PM CDT 11/23/2021 5:01 PM CDT Rufino Srinivasan MD LAB - CHEMISTRY EVAN SNYDER Performing Organization Address City/[facility]/ZIP Co de Phone Number [address] [phone] [phone] * XR KNEE RIGHT 3VW (08/14/2021 1:32 PM CDT) Anatomical Region Laterality Modality Lower Extremity Radiographic Liz ging 08/14/2021 1:34 PM CDT Impressions 08/14/2021 2:10 PM CDT IMPRESSION: 1. Right hand and wrist: Moderate arthritis at the second and third metacarpophalangeal joints and mild involvement at several other joints. 2. Left hand and wrist: Mild to moderate arthritis at several metacarpal phalangeal and interphalangeal joints and the first carpometacarpal joint. 3. Right knee: Mild osteoarthritis. 4. Left knee: Osteoarthritis, moderate in the medial compartment. 5. Right foot: Mild osteoarthritis at the first metatarsophalangeal joint. 6. Left foot: Mild osteoarthritis at the first metatarsophalangeal joint. 7. Sacroiliac joints: No arthritis. 1.5 cm nonspecific sclerotic bone lesion in the right iliac bone. Recommend clinical correlation and follow-up such as pelvic radiographs in 3 months to ensure stability. Alternatively MRI pelvis with and without contrast could be performed if further characterization is desired now. 8. Differential diagnosis: Osteoarthritis is present on the above studies. The prominent metacarpophalangeal involvement in the hands could be due to rheumatoid arthritis with secondary osteoarthritis (however there is not a perceptible erosive component) or other process such as CPPD arthropathy. Report drafted by Jaret Michaud M.D. (resident) I, Dr. BASIM HERNANDEZ MD have personally reviewed and interpreted this examination/study. This report was electronically signed by BASIM HERNANDEZ MD on 08/14/2021 2:10 PM . Narrative 08/14/2021 2:10 PM CDT EXAM: 1.Right knee Radiographs, 3 Views 2.Left knee Radiographs, 3 Views 3.Right hand Radiographs, 3 Views 4.Left hand Radiographs, 3 Views 5.Right wrist Radiographs, 2 Views 6.Left wrist Radiographs, 2 Views 7.Right foot Radiographs, 4 Views 8.Left foot Radiographs, 4 Views 9.Sacroiliac joint radiographs 3 views HISTORY: M06.4: Inflammatory polyarthritis R21: Rash R76.8: Rheumatoid factor positive COMPARISON: None. FINDINGS: Right hand: No fracture or dislocation is present. There is moderate joint space narrowing at the second and third metacarpophalangeal joints with subchondral sclerosis and osteophytes including small hooklike osteophytes. Mild to moderate involvement of the first carpometacarpal joint and several interphalangeal joints. No erosions. Bone density is normal. The soft tissues are normal. Right wrist: No acute fracture or dislocation is present. Lucency in the radial styloid process consistent with a chronic fracture. Mild to moderate osteoarthritis at the first carpometacarpal joint. The other joint spaces are normal. No erosions. Bone density is normal. The soft tissues are normal. Left hand: No fracture or dislocation is present. There is mild joint space narrowing at the first through third metacarpophalangeal joints with subchondral sclerosis and osteophytes including small metacarpal hooklike osteophytes. There is also a small hooklike osteophyte at the fourth metacarpal head. There is mild arthritis with narrowing and osteophytes and cysts at several interphalangeal joints. Bone density is normal. No definite erosions. The soft tissues are normal. Left wrist: No fracture or dislocation is present. Moderate narrowing at the first carpometacarpal joint with subchondral sclerosis, cysts, and osteophytes. The other joint spaces are maintained. No erosions are identified. The soft tissues are normal. Right knee: No fracture or dislocation is present. There is mild tricompartmental osteoarthritis. No erosions are identified. A small joint effusion is noted. The soft tissues are normal. Left knee: No fracture or dislocation is present. There is tricompartmental osteoarthritis, greatest in the medial compartment where there is moderate narrowing. No erosions are identified. A small joint effusion is noted. The soft tissues are normal. Right foot: No fracture or dislocation is present. Mild osteoarthritis at the first metatarsophalangeal joint. No erosions are identified. The soft tissues are normal. Left foot: No fracture or dislocation is present. Mild osteoarthritis at the first metatarsophalangeal joint. No erosions are identified. The soft tissues are normal. Sacroiliac joints: There is no erosion, widening, sclerosis, narrowing, or ankylosis on either side. There is no fracture. The pubic symphysis and hip joint spaces are maintained. A 1.5 cm sclerotic lesion is seen in the right iliac bone. Procedure Note Basim Hernandez MD - 08/14/2021 EXAM: 1.Right knee Radiographs, 3 Views 2.Left knee Radiographs, 3 Views 3.Right hand Radiographs, 3 Views 4.Left hand Radiographs, 3 Views 5.Right wrist Radiographs, 2 Views 6.Left wrist Radiographs, 2 Views 7.Right foot Radiographs, 4 Views 8.Left foot Radiographs, 4 Views 9.Sacroiliac joint radiographs 3 views HISTORY: M06.4: Inflammatory polyarthritis R21: Rash R76.8: Rheumatoid factor positive COMPARISON: None. FINDINGS: Right hand: No fracture or dislocation is present. There is moderate joint space narrowing at the second and third metacarpophalangeal joints with subchondral sclerosis and osteophytes including small hooklike osteophytes. Mild to moderate involvement of the first carpometacarpal joint and several interphalangeal joints. No erosions. Bone density is normal. The soft tissues are normal. Right wrist: No acute fracture or dislocation is present. Lucency in the radialstyloid process consistent with a chronic fracture. Mild to moderate osteoarthritis at the first carpometacarpal joint. The other jointspaces are normal. No erosions. Bone density is normal. The soft tissues are normal. Left hand: No fracture or dislocation is present. There is mild joint spacenarrowing at the first through third metacarpophalangeal joints with subchondral sclerosis and osteophytes including small metacarpal hooklikeosteophytes. There is also a small hooklike osteophyte at the fourth metacarpal head. There is mild arthritis with narrowing and osteophytes and cysts at several interphalangeal joints. Bone density is normal. No definite erosions. The soft tissues are normal. Left wrist: No fracture or dislocation is present. Moderate narrowing at the first carpometacarpal joint with subchondral sclerosis, cysts, andosteophytes. The other joint spaces are maintained. No erosions are identified. The soft tissues are normal. Right knee: No fracture or dislocation is present. There is mild tricompartmental osteoarthritis. No erosions are identified. A small joint effusion is noted. The soft tissues are normal. Left knee: No fracture or dislocation is present. There is tricompartmental osteoarthritis, greatest in the medial compartment where there ismoderate narrowing. No erosions are identified. A small joint effusion is noted. The soft tissues are normal. Right foot: No fracture or dislocation is present. Mild osteoarthritis at the first metatarsophalangeal joint. No erosions are identified. The soft tissues are normal. Left foot: No fracture or dislocation is present. Mild osteoarthritis at the first metatarsophalangeal joint. No erosions are identified. The soft tissues are normal. Sacroiliac joints: There is no erosion, widening, sclerosis, narrowing, or ankylosis on either side. There is no fracture. The pubic symphysis and hip joint spaces are maintained. A 1.5 cm sclerotic lesion is seen in the right iliac bone. IMPRESSION: 1. Right hand and wrist: Moderate arthritis at the second and third metacarpophalangeal joints and mild involvement at several other joints. 2. Left hand and wrist: Mild to moderate arthritis at several metacarpal phalangeal and interphalangeal joints and the first carpometacarpaljoint. 3. Right knee: Mild osteoarthritis. 4. Left knee: Osteoarthritis, moderate in the medial compartment. 5. Right foot: Mild osteoarthritis at the first metatarsophalangealjoint. 6. Left foot: Mild osteoarthritis at the first metatarsophalangealjoint. 7. Sacroiliac joints: No arthritis. 1.5 cm nonspecific sclerotic bone lesion in the right iliac bone. Recommend clinical correlation and follow-up such as pelvic radiographs in 3 months to ensure stability. Alternatively MRI pelvis with and without contrast could be performed if further characterization is desired now. 8. Differential diagnosis: Osteoarthritis is present on the abovestudies. The prominent metacarpophalangeal involvement in the hands could be dueto rheumatoid arthritis with secondary osteoarthritis (however there is nota perceptible erosive component) or other process such as CPPDarthropathy. Report drafted by Jaret Michaud M.D. (resident) I, Dr. BASIM HERNANDEZ MD have personally reviewed and interpreted this examination/study. This report was electronically signed by BASIM HERNANDEZ MD on08/14/2021 2:10 PM . Rufino Srinivasan MD DIAGNOSTIC IMAGING O RDERABLES * XR FOOT RIGHT 3VW OR MORE (08/14/2021 1:32 PM CDT) Anatomical Region Laterality Modality Ankle / Foot Radiographic Liz ging 08/14/2021 1:34 PM CDT Impressions 08/14/2021 2:10 PM CDT IMPRESSION: 1. Right hand and wrist: Moderate arthritis at the second and third metacarpophalangeal joints and mild involvement at several other joints. 2. Left hand and wrist: Mild to moderate arthritis at several metacarpal phalangeal and interphalangeal joints and the first carpometacarpal joint. 3. Right knee: Mild osteoarthritis. 4. Left knee: Osteoarthritis, moderate in the medial compartment. 5. Right foot: Mild osteoarthritis at the first metatarsophalangeal joint. 6. Left foot: Mild osteoarthritis at the first metatarsophalangeal joint. 7. Sacroiliac joints: No arthritis. 1.5 cm nonspecific sclerotic bone lesion in the right iliac bone. Recommend clinical correlation and follow-up such as pelvic radiographs in 3 months to ensure stability. Alternatively MRI pelvis with and without contrast could be performed if further characterization is desired now. 8. Differential diagnosis: Osteoarthritis is present on the above studies. The prominent metacarpophalangeal involvement in the hands could be due to rheumatoid arthritis with secondary osteoarthritis (however there is not a perceptible erosive component) or other process such as CPPD arthropathy. Report drafted by Jaret Michaud M.D. (resident) I, Dr. BASIM HERNANDEZ MD have personally reviewed and interpreted this examination/study. This report was electronically signed by BASIM HERNANDEZ MD on 08/14/2021 2:10 PM . Narrative 08/14/2021 2:10 PM CDT EXAM: 1.Right knee Radiographs, 3 Views 2.Left knee Radiographs, 3 Views 3.Right hand Radiographs, 3 Views 4.Left hand Radiographs, 3 Views 5.Right wrist Radiographs, 2 Views 6.Left wrist Radiographs, 2 Views 7.Right foot Radiographs, 4 Views 8.Left foot Radiographs, 4 Views 9.Sacroiliac joint radiographs 3 views HISTORY: M06.4: Inflammatory polyarthritis R21: Rash R76.8: Rheumatoid factor positive COMPARISON: None. FINDINGS: Right hand: No fracture or dislocation is present. There is moderate joint space narrowing at the second and third metacarpophalangeal joints with subchondral sclerosis and osteophytes including small hooklike osteophytes. Mild to moderate involvement of the first carpometacarpal joint and several interphalangeal joints. No erosions. Bone density is normal. The soft tissues are normal. Right wrist: No acute fracture or dislocation is present. Lucency in the radial styloid process consistent with a chronic fracture. Mild to moderate osteoarthritis at the first carpometacarpal joint. The other joint spaces are normal. No erosions. Bone density is normal. The soft tissues are normal. Left hand: No fracture or dislocation is present. There is mild joint space narrowing at the first through third metacarpophalangeal joints with subchondral sclerosis and osteophytes including small metacarpal hooklike osteophytes. There is also a small hooklike osteophyte at the fourth metacarpal head. There is mild arthritis with narrowing and osteophytes and cysts at several interphalangeal joints. Bone density is normal. No definite erosions. The soft tissues are normal. Left wrist: No fracture or dislocation is present. Moderate narrowing at the first carpometacarpal joint with subchondral sclerosis, cysts, and osteophytes. The other joint spaces are maintained. No erosions are identified. The soft tissues are normal. Right knee: No fracture or dislocation is present. There is mild tricompartmental osteoarthritis. No erosions are identified. A small joint effusion is noted. The soft tissues are normal. Left knee: No fracture or dislocation is present. There is tricompartmental osteoarthritis, greatest in the medial compartment where there is moderate narrowing. No erosions are identified. A small joint effusion is noted. The soft tissues are normal. Right foot: No fracture or dislocation is present. Mild osteoarthritis at the first metatarsophalangeal joint. No erosions are identified. The soft tissues are normal. Left foot: No fracture or dislocation is present. Mild osteoarthritis at the first metatarsophalangeal joint. No erosions are identified. The soft tissues are normal. Sacroiliac joints: There is no erosion, widening, sclerosis, narrowing, or ankylosis on either side. There is no fracture. The pubic symphysis and hip joint spaces are maintained. A 1.5 cm sclerotic lesion is seen in the right iliac bone. Procedure Note Basim Hernandez MD - 08/14/2021 EXAM: 1.Right knee Radiographs, 3 Views 2.Left knee Radiographs, 3 Views 3.Right hand Radiographs, 3 Views 4.Left hand Radiographs, 3 Views 5.Right wrist Radiographs, 2 Views 6.Left wrist Radiographs, 2 Views 7.Right foot Radiographs, 4 Views 8.Left foot Radiographs, 4 Views 9.Sacroiliac joint radiographs 3 views HISTORY: M06.4: Inflammatory polyarthritis R21: Rash R76.8: Rheumatoid factor positive COMPARISON: None. FINDINGS: Right hand: No fracture or dislocation is present. There is moderate joint space narrowing at the second and third metacarpophalangeal joints with subchondral sclerosis and osteophytes including small hooklike osteophytes. Mild to moderate involvement of the first carpometacarpal joint and several interphalangeal joints. No erosions. Bone density is normal. The soft tissues are normal. Right wrist: No acute fracture or dislocation is present. Lucency in the radialstyloid process consistent with a chronic fracture. Mild to moderate osteoarthritis at the first carpometacarpal joint. The other jointspaces are normal. No erosions. Bone density is normal. The soft tissues are normal. Left hand: No fracture or dislocation is present. There is mild joint spacenarrowing at the first through third metacarpophalangeal joints with subchondral sclerosis and osteophytes including small metacarpal hooklikeosteophytes. There is also a small hooklike osteophyte at the fourth metacarpal head. There is mild arthritis with narrowing and osteophytes and cysts at several interphalangeal joints. Bone density is normal. No definite erosions. The soft tissues are normal. Left wrist: No fracture or dislocation is present. Moderate narrowing at the first carpometacarpal joint with subchondral sclerosis, cysts, andosteophytes. The other joint spaces are maintained. No erosions are identified. The soft tissues are normal. Right knee: No fracture or dislocation is present. There is mild tricompartmental osteoarthritis. No erosions are identified. A small joint effusion is noted. The soft tissues are normal. Left knee: No fracture or dislocation is present. There is tricompartmental osteoarthritis, greatest in the medial compartment where there ismoderate narrowing. No erosions are identified. A small joint effusion is noted. The soft tissues are normal. Right foot: No fracture or dislocation is present. Mild osteoarthritis at the first metatarsophalangeal joint. No erosions are identified. The soft tissues are normal. Left foot: No fracture or dislocation is present. Mild osteoarthritis at the first metatarsophalangeal joint. No erosions are identified. The soft tissues are normal. Sacroiliac joints: There is no erosion, widening, sclerosis, narrowing, or ankylosis on either side. There is no fracture. The pubic symphysis and hip joint spaces are maintained. A 1.5 cm sclerotic lesion is seen in the right iliac bone. IMPRESSION: 1. Right hand and wrist: Moderate arthritis at the second and third metacarpophalangeal joints and mild involvement at several other joints. 2. Left hand and wrist: Mild to moderate arthritis at several metacarpal phalangeal and interphalangeal joints and the first carpometacarpaljoint. 3. Right knee: Mild osteoarthritis. 4. Left knee: Osteoarthritis, moderate in the medial compartment. 5. Right foot: Mild osteoarthritis at the first metatarsophalangealjoint. 6. Left foot: Mild osteoarthritis at the first metatarsophalangealjoint. 7. Sacroiliac joints: No arthritis. 1.5 cm nonspecific sclerotic bone lesion in the right iliac bone. Recommend clinical correlation and follow-up such as pelvic radiographs in 3 months to ensure stability. Alternatively MRI pelvis with and without contrast could be performed if further characterization is desired now. 8. Differential diagnosis: Osteoarthritis is present on the abovestudies. The prominent metacarpophalangeal involvement in the hands could be dueto rheumatoid arthritis with secondary osteoarthritis (however there is nota perceptible erosive component) or other process such as CPPDarthropathy. Report drafted by Jaret Michaud M.D. (resident) I, Dr. BASIM HERNANDEZ MD have personally reviewed and interpreted this examination/study. This report was electronically signed by BASIM HERNANDEZ MD on08/14/2021 2:10 PM . Rufino Srinivasan MD DIAGNOSTIC IMAGING O RDERABLES * XR FOOT LEFT 3VW OR MORE (08/14/2021 1:32 PM CDT) Anatomical Region Laterality Modality Ankle / Foot Radiographic Liz ging 08/14/2021 1:34 PM CDT Impressions 08/14/2021 2:10 PM CDT IMPRESSION: 1. Right hand and wrist: Moderate arthritis at the second and third metacarpophalangeal joints and mild involvement at several other joints. 2. Left hand and wrist: Mild to moderate arthritis at several metacarpal phalangeal and interphalangeal joints and the first carpometacarpal joint. 3. Right knee: Mild osteoarthritis. 4. Left knee: Osteoarthritis, moderate in the medial compartment. 5. Right foot: Mild osteoarthritis at the first metatarsophalangeal joint. 6. Left foot: Mild osteoarthritis at the first metatarsophalangeal joint. 7. Sacroiliac joints: No arthritis. 1.5 cm nonspecific sclerotic bone lesion in the right iliac bone. Recommend clinical correlation and follow-up such as pelvic radiographs in 3 months to ensure stability. Alternatively MRI pelvis with and without contrast could be performed if further characterization is desired now. 8. Differential diagnosis: Osteoarthritis is present on the above studies. The prominent metacarpophalangeal involvement in the hands could be due to rheumatoid arthritis with secondary osteoarthritis (however there is not a perceptible erosive component) or other process such as CPPD arthropathy. Report drafted by Jaret Michaud M.D. (resident) I, Dr. BASIM HERNANDEZ MD have personally reviewed and interpreted this examination/study. This report was electronically signed by BASIM HERNANDEZ MD on 08/14/2021 2:10 PM . Narrative 08/14/2021 2:10 PM CDT EXAM: 1.Right knee Radiographs, 3 Views 2.Left knee Radiographs, 3 Views 3.Right hand Radiographs, 3 Views 4.Left hand Radiographs, 3 Views 5.Right wrist Radiographs, 2 Views 6.Left wrist Radiographs, 2 Views 7.Right foot Radiographs, 4 Views 8.Left foot Radiographs, 4 Views 9.Sacroiliac joint radiographs 3 views HISTORY: M06.4: Inflammatory polyarthritis R21: Rash R76.8: Rheumatoid factor positive COMPARISON: None. FINDINGS: Right hand: No fracture or dislocation is present. There is moderate joint space narrowing at the second and third metacarpophalangeal joints with subchondral sclerosis and osteophytes including small hooklike osteophytes. Mild to moderate involvement of the first carpometacarpal joint and several interphalangeal joints. No erosions. Bone density is normal. The soft tissues are normal. Right wrist: No acute fracture or dislocation is present. Lucency in the radial styloid process consistent with a chronic fracture. Mild to moderate osteoarthritis at the first carpometacarpal joint. The other joint spaces are normal. No erosions. Bone density is normal. The soft tissues are normal. Left hand: No fracture or dislocation is present. There is mild joint space narrowing at the first through third metacarpophalangeal joints with subchondral sclerosis and osteophytes including small metacarpal hooklike osteophytes. There is also a small hooklike osteophyte at the fourth metacarpal head. There is mild arthritis with narrowing and osteophytes and cysts at several interphalangeal joints. Bone density is normal. No definite erosions. The soft tissues are normal. Left wrist: No fracture or dislocation is present. Moderate narrowing at the first carpometacarpal joint with subchondral sclerosis, cysts, and osteophytes. The other joint spaces are maintained. No erosions are identified. The soft tissues are normal. Right knee: No fracture or dislocation is present. There is mild tricompartmental osteoarthritis. No erosions are identified. A small joint effusion is noted. The soft tissues are normal. Left knee: No fracture or dislocation is present. There is tricompartmental osteoarthritis, greatest in the medial compartment where there is moderate narrowing. No erosions are identified. A small joint effusion is noted. The soft tissues are normal. Right foot: No fracture or dislocation is present. Mild osteoarthritis at the first metatarsophalangeal joint. No erosions are identified. The soft tissues are normal. Left foot: No fracture or dislocation is present. Mild osteoarthritis at the first metatarsophalangeal joint. No erosions are identified. The soft tissues are normal. Sacroiliac joints: There is no erosion, widening, sclerosis, narrowing, or ankylosis on either side. There is no fracture. The pubic symphysis and hip joint spaces are maintained. A 1.5 cm sclerotic lesion is seen in the right iliac bone. Procedure Note Basim Hernandez MD - 08/14/2021 EXAM: 1.Right knee Radiographs, 3 Views 2.Left knee Radiographs, 3 Views 3.Right hand Radiographs, 3 Views 4.Left hand Radiographs, 3 Views 5.Right wrist Radiographs, 2 Views 6.Left wrist Radiographs, 2 Views 7.Right foot Radiographs, 4 Views 8.Left foot Radiographs, 4 Views 9.Sacroiliac joint radiographs 3 views HISTORY: M06.4: Inflammatory polyarthritis R21: Rash R76.8: Rheumatoid factor positive COMPARISON: None. FINDINGS: Right hand: No fracture or dislocation is present. There is moderate joint space narrowing at the second and third metacarpophalangeal joints with subchondral sclerosis and osteophytes including small hooklike osteophytes. Mild to moderate involvement of the first carpometacarpal joint and several interphalangeal joints. No erosions. Bone density is normal. The soft tissues are normal. Right wrist: No acute fracture or dislocation is present. Lucency in the radialstyloid process consistent with a chronic fracture. Mild to moderate osteoarthritis at the first carpometacarpal joint. The other jointspaces are normal. No erosions. Bone density is normal. The soft tissues are normal. Left hand: No fracture or dislocation is present. There is mild joint spacenarrowing at the first through third metacarpophalangeal joints with subchondral sclerosis and osteophytes including small metacarpal hooklikeosteophytes. There is also a small hooklike osteophyte at the fourth metacarpal head. There is mild arthritis with narrowing and osteophytes and cysts at several interphalangeal joints. Bone density is normal. No definite erosions. The soft tissues are normal. Left wrist: No fracture or dislocation is present. Moderate narrowing at the first carpometacarpal joint with subchondral sclerosis, cysts, andosteophytes. The other joint spaces are maintained. No erosions are identified. The soft tissues are normal. Right knee: No fracture or dislocation is present. There is mild tricompartmental osteoarthritis. No erosions are identified. A small joint effusion is noted. The soft tissues are normal. Left knee: No fracture or dislocation is present. There is tricompartmental osteoarthritis, greatest in the medial compartment where there ismoderate narrowing. No erosions are identified. A small joint effusion is noted. The soft tissues are normal. Right foot: No fracture or dislocation is present. Mild osteoarthritis at the first metatarsophalangeal joint. No erosions are identified. The soft tissues are normal. Left foot: No fracture or dislocation is present. Mild osteoarthritis at the first metatarsophalangeal joint. No erosions are identified. The soft tissues are normal. Sacroiliac joints: There is no erosion, widening, sclerosis, narrowing, or ankylosis on either side. There is no fracture. The pubic symphysis and hip joint spaces are maintained. A 1.5 cm sclerotic lesion is seen in the right iliac bone. IMPRESSION: 1. Right hand and wrist: Moderate arthritis at the second and third metacarpophalangeal joints and mild involvement at several other joints. 2. Left hand and wrist: Mild to moderate arthritis at several metacarpal phalangeal and interphalangeal joints and the first carpometacarpaljoint. 3. Right knee: Mild osteoarthritis. 4. Left knee: Osteoarthritis, moderate in the medial compartment. 5. Right foot: Mild osteoarthritis at the first metatarsophalangealjoint. 6. Left foot: Mild osteoarthritis at the first metatarsophalangealjoint. 7. Sacroiliac joints: No arthritis. 1.5 cm nonspecific sclerotic bone lesion in the right iliac bone. Recommend clinical correlation and follow-up such as pelvic radiographs in 3 months to ensure stability. Alternatively MRI pelvis with and without contrast could be performed if further characterization is desired now. 8. Differential diagnosis: Osteoarthritis is present on the abovestudies. The prominent metacarpophalangeal involvement in the hands could be dueto rheumatoid arthritis with secondary osteoarthritis (however there is nota perceptible erosive component) or other process such as CPPDarthropathy. Report drafted by Jaret Michaud M.D. (resident) I, Dr. BASIM HERNANDEZ MD have personally reviewed and interpreted this examination/study. This report was electronically signed by BASIM HERNANDEZ MD on08/14/2021 2:10 PM . Rufino Srinivasan MD DIAGNOSTIC IMAGING O RDERABLES * XR KNEE LEFT 3VW (08/14/2021 1:32 PM CDT) Anatomical Region Laterality Modality Lower Extremity Radiographic Liz ging 08/14/2021 1:34 PM CDT Impressions 08/14/2021 2:10 PM CDT IMPRESSION: 1. Right hand and wrist: Moderate arthritis at the second and third metacarpophalangeal joints and mild involvement at several other joints. 2. Left hand and wrist: Mild to moderate arthritis at several metacarpal phalangeal and interphalangeal joints and the first carpometacarpal joint. 3. Right knee: Mild osteoarthritis. 4. Left knee: Osteoarthritis, moderate in the medial compartment. 5. Right foot: Mild osteoarthritis at the first metatarsophalangeal joint. 6. Left foot: Mild osteoarthritis at the first metatarsophalangeal joint. 7. Sacroiliac joints: No arthritis. 1.5 cm nonspecific sclerotic bone lesion in the right iliac bone. Recommend clinical correlation and follow-up such as pelvic radiographs in 3 months to ensure stability. Alternatively MRI pelvis with and without contrast could be performed if further characterization is desired now. 8. Differential diagnosis: Osteoarthritis is present on the above studies. The prominent metacarpophalangeal involvement in the hands could be due to rheumatoid arthritis with secondary osteoarthritis (however there is not a perceptible erosive component) or other process such as CPPD arthropathy. Report drafted by Jaret Michaud M.D. (resident) I, Dr. BASIM HERNANDEZ MD have personally reviewed and interpreted this examination/study. This report was electronically signed by BASIM HERNANDEZ MD on 08/14/2021 2:10 PM . Narrative 08/14/2021 2:10 PM CDT EXAM: 1.Right knee Radiographs, 3 Views 2.Left knee Radiographs, 3 Views 3.Right hand Radiographs, 3 Views 4.Left hand Radiographs, 3 Views 5.Right wrist Radiographs, 2 Views 6.Left wrist Radiographs, 2 Views 7.Right foot Radiographs, 4 Views 8.Left foot Radiographs, 4 Views 9.Sacroiliac joint radiographs 3 views HISTORY: M06.4: Inflammatory polyarthritis R21: Rash R76.8: Rheumatoid factor positive COMPARISON: None. FINDINGS: Right hand: No fracture or dislocation is present. There is moderate joint space narrowing at the second and third metacarpophalangeal joints with subchondral sclerosis and osteophytes including small hooklike osteophytes. Mild to moderate involvement of the first carpometacarpal joint and several interphalangeal joints. No erosions. Bone density is normal. The soft tissues are normal. Right wrist: No acute fracture or dislocation is present. Lucency in the radial styloid process consistent with a chronic fracture. Mild to moderate osteoarthritis at the first carpometacarpal joint. The other joint spaces are normal. No erosions. Bone density is normal. The soft tissues are normal. Left hand: No fracture or dislocation is present. There is mild joint space narrowing at the first through third metacarpophalangeal joints with subchondral sclerosis and osteophytes including small metacarpal hooklike osteophytes. There is also a small hooklike osteophyte at the fourth metacarpal head. There is mild arthritis with narrowing and osteophytes and cysts at several interphalangeal joints. Bone density is normal. No definite erosions. The soft tissues are normal. Left wrist: No fracture or dislocation is present. Moderate narrowing at the first carpometacarpal joint with subchondral sclerosis, cysts, and osteophytes. The other joint spaces are maintained. No erosions are identified. The soft tissues are normal. Right knee: No fracture or dislocation is present. There is mild tricompartmental osteoarthritis. No erosions are identified. A small joint effusion is noted. The soft tissues are normal. Left knee: No fracture or dislocation is present. There is tricompartmental osteoarthritis, greatest in the medial compartment where there is moderate narrowing. No erosions are identified. A small joint effusion is noted. The soft tissues are normal. Right foot: No fracture or dislocation is present. Mild osteoarthritis at the first metatarsophalangeal joint. No erosions are identified. The soft tissues are normal. Left foot: No fracture or dislocation is present. Mild osteoarthritis at the first metatarsophalangeal joint. No erosions are identified. The soft tissues are normal. Sacroiliac joints: There is no erosion, widening, sclerosis, narrowing, or ankylosis on either side. There is no fracture. The pubic symphysis and hip joint spaces are maintained. A 1.5 cm sclerotic lesion is seen in the right iliac bone. Procedure Note Basim Hernandez MD - 08/14/2021 EXAM: 1.Right knee Radiographs, 3 Views 2.Left knee Radiographs, 3 Views 3.Right hand Radiographs, 3 Views 4.Left hand Radiographs, 3 Views 5.Right wrist Radiographs, 2 Views 6.Left wrist Radiographs, 2 Views 7.Right foot Radiographs, 4 Views 8.Left foot Radiographs, 4 Views 9.Sacroiliac joint radiographs 3 views HISTORY: M06.4: Inflammatory polyarthritis R21: Rash R76.8: Rheumatoid factor positive COMPARISON: None. FINDINGS: Right hand: No fracture or dislocation is present. There is moderate joint space narrowing at the second and third metacarpophalangeal joints with subchondral sclerosis and osteophytes including small hooklike osteophytes. Mild to moderate involvement of the first carpometacarpal joint and several interphalangeal joints. No erosions. Bone density is normal. The soft tissues are normal. Right wrist: No acute fracture or dislocation is present. Lucency in the radialstyloid process consistent with a chronic fracture. Mild to moderate osteoarthritis at the first carpometacarpal joint. The other jointspaces are normal. No erosions. Bone density is normal. The soft tissues are normal. Left hand: No fracture or dislocation is present. There is mild joint spacenarrowing at the first through third metacarpophalangeal joints with subchondral sclerosis and osteophytes including small metacarpal hooklikeosteophytes. There is also a small hooklike osteophyte at the fourth metacarpal head. There is mild arthritis with narrowing and osteophytes and cysts at several interphalangeal joints. Bone density is normal. No definite erosions. The soft tissues are normal. Left wrist: No fracture or dislocation is present. Moderate narrowing at the first carpometacarpal joint with subchondral sclerosis, cysts, andosteophytes. The other joint spaces are maintained. No erosions are identified. The soft tissues are normal. Right knee: No fracture or dislocation is present. There is mild tricompartmental osteoarthritis. No erosions are identified. A small joint effusion is noted. The soft tissues are normal. Left knee: No fracture or dislocation is present. There is tricompartmental osteoarthritis, greatest in the medial compartment where there ismoderate narrowing. No erosions are identified. A small joint effusion is noted. The soft tissues are normal. Right foot: No fracture or dislocation is present. Mild osteoarthritis at the first metatarsophalangeal joint. No erosions are identified. The soft tissues are normal. Left foot: No fracture or dislocation is present. Mild osteoarthritis at the first metatarsophalangeal joint. No erosions are identified. The soft tissues are normal. Sacroiliac joints: There is no erosion, widening, sclerosis, narrowing, or ankylosis on either side. There is no fracture. The pubic symphysis and hip joint spaces are maintained. A 1.5 cm sclerotic lesion is seen in the right iliac bone. IMPRESSION: 1. Right hand and wrist: Moderate arthritis at the second and third metacarpophalangeal joints and mild involvement at several other joints. 2. Left hand and wrist: Mild to moderate arthritis at several metacarpal phalangeal and interphalangeal joints and the first carpometacarpaljoint. 3. Right knee: Mild osteoarthritis. 4. Left knee: Osteoarthritis, moderate in the medial compartment. 5. Right foot: Mild osteoarthritis at the first metatarsophalangealjoint. 6. Left foot: Mild osteoarthritis at the first metatarsophalangealjoint. 7. Sacroiliac joints: No arthritis. 1.5 cm nonspecific sclerotic bone lesion in the right iliac bone. Recommend clinical correlation and follow-up such as pelvic radiographs in 3 months to ensure stability. Alternatively MRI pelvis with and without contrast could be performed if further characterization is desired now. 8. Differential diagnosis: Osteoarthritis is present on the abovestudies. The prominent metacarpophalangeal involvement in the hands could be dueto rheumatoid arthritis with secondary osteoarthritis (however there is nota perceptible erosive component) or other process such as CPPDarthropathy. Report drafted by Jaret Michadu M.D. (resident) I, Dr. BASIM HERNANDEZ MD have personally reviewed and interpreted this examination/study. This report was electronically signed by BASIM HERNANDEZ MD on08/14/2021 2:10 PM . Rufino Srinivasan MD DIAGNOSTIC IMAGING O RDERABLES * XR HAND RIGHT 3VW OR MORE (08/14/2021 1:32 PM CDT) Anatomical Region Laterality Modality Wrist / Hand Radiographic Liz ging 08/14/2021 1:34 PM CDT Impressions 08/14/2021 2:10 PM CDT IMPRESSION: 1. Right hand and wrist: Moderate arthritis at the second and third metacarpophalangeal joints and mild involvement at several other joints. 2. Left hand and wrist: Mild to moderate arthritis at several metacarpal phalangeal and interphalangeal joints and the first carpometacarpal joint. 3. Right knee: Mild osteoarthritis. 4. Left knee: Osteoarthritis, moderate in the medial compartment. 5. Right foot: Mild osteoarthritis at the first metatarsophalangeal joint. 6. Left foot: Mild osteoarthritis at the first metatarsophalangeal joint. 7. Sacroiliac joints: No arthritis. 1.5 cm nonspecific sclerotic bone lesion in the right iliac bone. Recommend clinical correlation and follow-up such as pelvic radiographs in 3 months to ensure stability. Alternatively MRI pelvis with and without contrast could be performed if further characterization is desired now. 8. Differential diagnosis: Osteoarthritis is present on the above studies. The prominent metacarpophalangeal involvement in the hands could be due to rheumatoid arthritis with secondary osteoarthritis (however there is not a perceptible erosive component) or other process such as CPPD arthropathy. Report drafted by Jaret Michaud M.D. (resident) I, Dr. BASIM HERNANDEZ MD have personally reviewed and interpreted this examination/study. This report was electronically signed by BASIM HERNANDEZ MD on 08/14/2021 2:10 PM . Narrative 08/14/2021 2:10 PM CDT EXAM: 1.Right knee Radiographs, 3 Views 2.Left knee Radiographs, 3 Views 3.Right hand Radiographs, 3 Views 4.Left hand Radiographs, 3 Views 5.Right wrist Radiographs, 2 Views 6.Left wrist Radiographs, 2 Views 7.Right foot Radiographs, 4 Views 8.Left foot Radiographs, 4 Views 9.Sacroiliac joint radiographs 3 views HISTORY: M06.4: Inflammatory polyarthritis R21: Rash R76.8: Rheumatoid factor positive COMPARISON: None. FINDINGS: Right hand: No fracture or dislocation is present. There is moderate joint space narrowing at the second and third metacarpophalangeal joints with subchondral sclerosis and osteophytes including small hooklike osteophytes. Mild to moderate involvement of the first carpometacarpal joint and several interphalangeal joints. No erosions. Bone density is normal. The soft tissues are normal. Right wrist: No acute fracture or dislocation is present. Lucency in the radial styloid process consistent with a chronic fracture. Mild to moderate osteoarthritis at the first carpometacarpal joint. The other joint spaces are normal. No erosions. Bone density is normal. The soft tissues are normal. Left hand: No fracture or dislocation is present. There is mild joint space narrowing at the first through third metacarpophalangeal joints with subchondral sclerosis and osteophytes including small metacarpal hooklike osteophytes. There is also a small hooklike osteophyte at the fourth metacarpal head. There is mild arthritis with narrowing and osteophytes and cysts at several interphalangeal joints. Bone density is normal. No definite erosions. The soft tissues are normal. Left wrist: No fracture or dislocation is present. Moderate narrowing at the first carpometacarpal joint with subchondral sclerosis, cysts, and osteophytes. The other joint spaces are maintained. No erosions are identified. The soft tissues are normal. Right knee: No fracture or dislocation is present. There is mild tricompartmental osteoarthritis. No erosions are identified. A small joint effusion is noted. The soft tissues are normal. Left knee: No fracture or dislocation is present. There is tricompartmental osteoarthritis, greatest in the medial compartment where there is moderate narrowing. No erosions are identified. A small joint effusion is noted. The soft tissues are normal. Right foot: No fracture or dislocation is present. Mild osteoarthritis at the first metatarsophalangeal joint. No erosions are identified. The soft tissues are normal. Left foot: No fracture or dislocation is present. Mild osteoarthritis at the first metatarsophalangeal joint. No erosions are identified. The soft tissues are normal. Sacroiliac joints: There is no erosion, widening, sclerosis, narrowing, or ankylosis on either side. There is no fracture. The pubic symphysis and hip joint spaces are maintained. A 1.5 cm sclerotic lesion is seen in the right iliac bone. Procedure Note Basim Hernandez MD - 08/14/2021 EXAM: 1.Right knee Radiographs, 3 Views 2.Left knee Radiographs, 3 Views 3.Right hand Radiographs, 3 Views 4.Left hand Radiographs, 3 Views 5.Right wrist Radiographs, 2 Views 6.Left wrist Radiographs, 2 Views 7.Right foot Radiographs, 4 Views 8.Left foot Radiographs, 4 Views 9.Sacroiliac joint radiographs 3 views HISTORY: M06.4: Inflammatory polyarthritis R21: Rash R76.8: Rheumatoid factor positive COMPARISON: None. FINDINGS: Right hand: No fracture or dislocation is present. There is moderate joint space narrowing at the second and third metacarpophalangeal joints with subchondral sclerosis and osteophytes including small hooklike osteophytes. Mild to moderate involvement of the first carpometacarpal joint and several interphalangeal joints. No erosions. Bone density is normal. The soft tissues are normal. Right wrist: No acute fracture or dislocation is present. Lucency in the radialstyloid process consistent with a chronic fracture. Mild to moderate osteoarthritis at the first carpometacarpal joint. The other jointspaces are normal. No erosions. Bone density is normal. The soft tissues are normal. Left hand: No fracture or dislocation is present. There is mild joint spacenarrowing at the first through third metacarpophalangeal joints with subchondral sclerosis and osteophytes including small metacarpal hooklikeosteophytes. There is also a small hooklike osteophyte at the fourth metacarpal head. There is mild arthritis with narrowing and osteophytes and cysts at several interphalangeal joints. Bone density is normal. No definite erosions. The soft tissues are normal. Left wrist: No fracture or dislocation is present. Moderate narrowing at the first carpometacarpal joint with subchondral sclerosis, cysts, andosteophytes. The other joint spaces are maintained. No erosions are identified. The soft tissues are normal. Right knee: No fracture or dislocation is present. There is mild tricompartmental osteoarthritis. No erosions are identified. A small joint effusion is noted. The soft tissues are normal. Left knee: No fracture or dislocation is present. There is tricompartmental osteoarthritis, greatest in the medial compartment where there ismoderate narrowing. No erosions are identified. A small joint effusion is noted. The soft tissues are normal. Right foot: No fracture or dislocation is present. Mild osteoarthritis at the first metatarsophalangeal joint. No erosions are identified. The soft tissues are normal. Left foot: No fracture or dislocation is present. Mild osteoarthritis at the first metatarsophalangeal joint. No erosions are identified. The soft tissues are normal. Sacroiliac joints: There is no erosion, widening, sclerosis, narrowing, or ankylosis on either side. There is no fracture. The pubic symphysis and hip joint spaces are maintained. A 1.5 cm sclerotic lesion is seen in the right iliac bone. IMPRESSION: 1. Right hand and wrist: Moderate arthritis at the second and third metacarpophalangeal joints and mild involvement at several other joints. 2. Left hand and wrist: Mild to moderate arthritis at several metacarpal phalangeal and interphalangeal joints and the first carpometacarpaljoint. 3. Right knee: Mild osteoarthritis. 4. Left knee: Osteoarthritis, moderate in the medial compartment. 5. Right foot: Mild osteoarthritis at the first metatarsophalangealjoint. 6. Left foot: Mild osteoarthritis at the first metatarsophalangealjoint. 7. Sacroiliac joints: No arthritis. 1.5 cm nonspecific sclerotic bone lesion in the right iliac bone. Recommend clinical correlation and follow-up such as pelvic radiographs in 3 months to ensure stability. Alternatively MRI pelvis with and without contrast could be performed if further characterization is desired now. 8. Differential diagnosis: Osteoarthritis is present on the abovestudies. The prominent metacarpophalangeal involvement in the hands could be dueto rheumatoid arthritis with secondary osteoarthritis (however there is nota perceptible erosive component) or other process such as CPPDarthropathy. Report drafted by Jarte Michaud M.D. (resident) I, Dr. BASIM HERNANDEZ MD have personally reviewed and interpreted this examination/study. This report was electronically signed by BASIM HERNANDEZ MD on08/14/2021 2:10 PM . Rufino Srinivasan MD DIAGNOSTIC IMAGING O RDERABLES * XR HAND LEFT 3VW OR MORE (08/14/2021 1:32 PM CDT) Anatomical Region Laterality Modality Wrist / Hand Radiographic Liz ging 08/14/2021 1:34 PM CDT Impressions 08/14/2021 2:10 PM CDT IMPRESSION: 1. Right hand and wrist: Moderate arthritis at the second and third metacarpophalangeal joints and mild involvement at several other joints. 2. Left hand and wrist: Mild to moderate arthritis at several metacarpal phalangeal and interphalangeal joints and the first carpometacarpal joint. 3. Right knee: Mild osteoarthritis. 4. Left knee: Osteoarthritis, moderate in the medial compartment. 5. Right foot: Mild osteoarthritis at the first metatarsophalangeal joint. 6. Left foot: Mild osteoarthritis at the first metatarsophalangeal joint. 7. Sacroiliac joints: No arthritis. 1.5 cm nonspecific sclerotic bone lesion in the right iliac bone. Recommend clinical correlation and follow-up such as pelvic radiographs in 3 months to ensure stability. Alternatively MRI pelvis with and without contrast could be performed if further characterization is desired now. 8. Differential diagnosis: Osteoarthritis is present on the above studies. The prominent metacarpophalangeal involvement in the hands could be due to rheumatoid arthritis with secondary osteoarthritis (however there is not a perceptible erosive component) or other process such as CPPD arthropathy. Report drafted by Jaret Michaud M.D. (resident) IDr. BASIM MD have personally reviewed and interpreted this examination/study. This report was electronically signed by BASIM HERNANDEZ MD on 08/14/2021 2:10 PM . Narrative 08/14/2021 2:10 PM CDT EXAM: 1.Right knee Radiographs, 3 Views 2.Left knee Radiographs, 3 Views 3.Right hand Radiographs, 3 Views 4.Left hand Radiographs, 3 Views 5.Right wrist Radiographs, 2 Views 6.Left wrist Radiographs, 2 Views 7.Right foot Radiographs, 4 Views 8.Left foot Radiographs, 4 Views 9.Sacroiliac joint radiographs 3 views HISTORY: M06.4: Inflammatory polyarthritis R21: Rash R76.8: Rheumatoid factor positive COMPARISON: None. FINDINGS: Right hand: No fracture or dislocation is present. There is moderate joint space narrowing at the second and third metacarpophalangeal joints with subchondral sclerosis and osteophytes including small hooklike osteophytes. Mild to moderate involvement of the first carpometacarpal joint and several interphalangeal joints. No erosions. Bone density is normal. The soft tissues are normal. Right wrist: No acute fracture or dislocation is present. Lucency in the radial styloid process consistent with a chronic fracture. Mild to moderate osteoarthritis at the first carpometacarpal joint. The other joint spaces are normal. No erosions. Bone density is normal. The soft tissues are normal. Left hand: No fracture or dislocation is present. There is mild joint space narrowing at the first through third metacarpophalangeal joints with subchondral sclerosis and osteophytes including small metacarpal hooklike osteophytes. There is also a small hooklike osteophyte at the fourth metacarpal head. There is mild arthritis with narrowing and osteophytes and cysts at several interphalangeal joints. Bone density is normal. No definite erosions. The soft tissues are normal. Left wrist: No fracture or dislocation is present. Moderate narrowing at the first carpometacarpal joint with subchondral sclerosis, cysts, and osteophytes. The other joint spaces are maintained. No erosions are identified. The soft tissues are normal. Right knee: No fracture or dislocation is present. There is mild tricompartmental osteoarthritis. No erosions are identified. A small joint effusion is noted. The soft tissues are normal. Left knee: No fracture or dislocation is present. There is tricompartmental osteoarthritis, greatest in the medial compartment where there is moderate narrowing. No erosions are identified. A small joint effusion is noted. The soft tissues are normal. Right foot: No fracture or dislocation is present. Mild osteoarthritis at the first metatarsophalangeal joint. No erosions are identified. The soft tissues are normal. Left foot: No fracture or dislocation is present. Mild osteoarthritis at the first metatarsophalangeal joint. No erosions are identified. The soft tissues are normal. Sacroiliac joints: There is no erosion, widening, sclerosis, narrowing, or ankylosis on either side. There is no fracture. The pubic symphysis and hip joint spaces are maintained. A 1.5 cm sclerotic lesion is seen in the right iliac bone. Procedure Note Basim Hernandez MD - 08/14/2021 EXAM: 1.Right knee Radiographs, 3 Views 2.Left knee Radiographs, 3 Views 3.Right hand Radiographs, 3 Views 4.Left hand Radiographs, 3 Views 5.Right wrist Radiographs, 2 Views 6.Left wrist Radiographs, 2 Views 7.Right foot Radiographs, 4 Views 8.Left foot Radiographs, 4 Views 9.Sacroiliac joint radiographs 3 views HISTORY: M06.4: Inflammatory polyarthritis R21: Rash R76.8: Rheumatoid factor positive COMPARISON: None. FINDINGS: Right hand: No fracture or dislocation is present. There is moderate joint space narrowing at the second and third metacarpophalangeal joints with subchondral sclerosis and osteophytes including small hooklike osteophytes. Mild to moderate involvement of the first carpometacarpal joint and several interphalangeal joints. No erosions. Bone density is normal. The soft tissues are normal. Right wrist: No acute fracture or dislocation is present. Lucency in the radialstyloid process consistent with a chronic fracture. Mild to moderate osteoarthritis at the first carpometacarpal joint. The other jointspaces are normal. No erosions. Bone density is normal. The soft tissues are normal. Left hand: No fracture or dislocation is present. There is mild joint spacenarrowing at the first through third metacarpophalangeal joints with subchondral sclerosis and osteophytes including small metacarpal hooklikeosteophytes. There is also a small hooklike osteophyte at the fourth metacarpal head. There is mild arthritis with narrowing and osteophytes and cysts at several interphalangeal joints. Bone density is normal. No definite erosions. The soft tissues are normal. Left wrist: No fracture or dislocation is present. Moderate narrowing at the first carpometacarpal joint with subchondral sclerosis, cysts, andosteophytes. The other joint spaces are maintained. No erosions are identified. The soft tissues are normal. Right knee: No fracture or dislocation is present. There is mild tricompartmental osteoarthritis. No erosions are identified. A small joint effusion is noted. The soft tissues are normal. Left knee: No fracture or dislocation is present. There is tricompartmental osteoarthritis, greatest in the medial compartment where there ismoderate narrowing. No erosions are identified. A small joint effusion is noted. The soft tissues are normal. Right foot: No fracture or dislocation is present. Mild osteoarthritis at the first metatarsophalangeal joint. No erosions are identified. The soft tissues are normal. Left foot: No fracture or dislocation is present. Mild osteoarthritis at the first metatarsophalangeal joint. No erosions are identified. The soft tissues are normal. Sacroiliac joints: There is no erosion, widening, sclerosis, narrowing, or ankylosis on either side. There is no fracture. The pubic symphysis and hip joint spaces are maintained. A 1.5 cm sclerotic lesion is seen in the right iliac bone. IMPRESSION: 1. Right hand and wrist: Moderate arthritis at the second and third metacarpophalangeal joints and mild involvement at several other joints. 2. Left hand and wrist: Mild to moderate arthritis at several metacarpal phalangeal and interphalangeal joints and the first carpometacarpaljoint. 3. Right knee: Mild osteoarthritis. 4. Left knee: Osteoarthritis, moderate in the medial compartment. 5. Right foot: Mild osteoarthritis at the first metatarsophalangealjoint. 6. Left foot: Mild osteoarthritis at the first metatarsophalangealjoint. 7. Sacroiliac joints: No arthritis. 1.5 cm nonspecific sclerotic bone lesion in the right iliac bone. Recommend clinical correlation and follow-up such as pelvic radiographs in 3 months to ensure stability. Alternatively MRI pelvis with and without contrast could be performed if further characterization is desired now. 8. Differential diagnosis: Osteoarthritis is present on the abovestudies. The prominent metacarpophalangeal involvement in the hands could be dueto rheumatoid arthritis with secondary osteoarthritis (however there is nota perceptible erosive component) or other process such as CPPDarthropathy. Report drafted by Jaret Michaud M.D. (resident) I, Dr. BASIM HERNANDEZ MD have personally reviewed and interpreted this examination/study. This report was electronically signed by BASIM HERNANDEZ MD on08/14/2021 2:10 PM . Rufino Srinivasan MD DIAGNOSTIC IMAGING O RDERABLES * XR WRIST RIGHT 2VW (08/14/2021 1:32 PM CDT) Anatomical Region Laterality Modality Wrist / Hand Radiographic Liz ging 08/14/2021 1:34 PM CDT Impressions 08/14/2021 2:10 PM CDT IMPRESSION: 1. Right hand and wrist: Moderate arthritis at the second and third metacarpophalangeal joints and mild involvement at several other joints. 2. Left hand and wrist: Mild to moderate arthritis at several metacarpal phalangeal and interphalangeal joints and the first carpometacarpal joint. 3. Right knee: Mild osteoarthritis. 4. Left knee: Osteoarthritis, moderate in the medial compartment. 5. Right foot: Mild osteoarthritis at the first metatarsophalangeal joint. 6. Left foot: Mild osteoarthritis at the first metatarsophalangeal joint. 7. Sacroiliac joints: No arthritis. 1.5 cm nonspecific sclerotic bone lesion in the right iliac bone. Recommend clinical correlation and follow-up such as pelvic radiographs in 3 months to ensure stability. Alternatively MRI pelvis with and without contrast could be performed if further characterization is desired now. 8. Differential diagnosis: Osteoarthritis is present on the above studies. The prominent metacarpophalangeal involvement in the hands could be due to rheumatoid arthritis with secondary osteoarthritis (however there is not a perceptible erosive component) or other process such as CPPD arthropathy. Report drafted by Jaret Michaud M.D. (resident) I, Dr. BASIM HERNANDEZ MD have personally reviewed and interpreted this examination/study. This report was electronically signed by BASIM HERNANDEZ MD on 08/14/2021 2:10 PM . Narrative 08/14/2021 2:10 PM CDT EXAM: 1.Right knee Radiographs, 3 Views 2.Left knee Radiographs, 3 Views 3.Right hand Radiographs, 3 Views 4.Left hand Radiographs, 3 Views 5.Right wrist Radiographs, 2 Views 6.Left wrist Radiographs, 2 Views 7.Right foot Radiographs, 4 Views 8.Left foot Radiographs, 4 Views 9.Sacroiliac joint radiographs 3 views HISTORY: M06.4: Inflammatory polyarthritis R21: Rash R76.8: Rheumatoid factor positive COMPARISON: None. FINDINGS: Right hand: No fracture or dislocation is present. There is moderate joint space narrowing at the second and third metacarpophalangeal joints with subchondral sclerosis and osteophytes including small hooklike osteophytes. Mild to moderate involvement of the first carpometacarpal joint and several interphalangeal joints. No erosions. Bone density is normal. The soft tissues are normal. Right wrist: No acute fracture or dislocation is present. Lucency in the radial styloid process consistent with a chronic fracture. Mild to moderate osteoarthritis at the first carpometacarpal joint. The other joint spaces are normal. No erosions. Bone density is normal. The soft tissues are normal. Left hand: No fracture or dislocation is present. There is mild joint space narrowing at the first through third metacarpophalangeal joints with subchondral sclerosis and osteophytes including small metacarpal hooklike osteophytes. There is also a small hooklike osteophyte at the fourth metacarpal head. There is mild arthritis with narrowing and osteophytes and cysts at several interphalangeal joints. Bone density is normal. No definite erosions. The soft tissues are normal. Left wrist: No fracture or dislocation is present. Moderate narrowing at the first carpometacarpal joint with subchondral sclerosis, cysts, and osteophytes. The other joint spaces are maintained. No erosions are identified. The soft tissues are normal. Right knee: No fracture or dislocation is present. There is mild tricompartmental osteoarthritis. No erosions are identified. A small joint effusion is noted. The soft tissues are normal. Left knee: No fracture or dislocation is present. There is tricompartmental osteoarthritis, greatest in the medial compartment where there is moderate narrowing. No erosions are identified. A small joint effusion is noted. The soft tissues are normal. Right foot: No fracture or dislocation is present. Mild osteoarthritis at the first metatarsophalangeal joint. No erosions are identified. The soft tissues are normal. Left foot: No fracture or dislocation is present. Mild osteoarthritis at the first metatarsophalangeal joint. No erosions are identified. The soft tissues are normal. Sacroiliac joints: There is no erosion, widening, sclerosis, narrowing, or ankylosis on either side. There is no fracture. The pubic symphysis and hip joint spaces are maintained. A 1.5 cm sclerotic lesion is seen in the right iliac bone. Procedure Note Basim Hernandez MD - 08/14/2021 EXAM: 1.Right knee Radiographs, 3 Views 2.Left knee Radiographs, 3 Views 3.Right hand Radiographs, 3 Views 4.Left hand Radiographs, 3 Views 5.Right wrist Radiographs, 2 Views 6.Left wrist Radiographs, 2 Views 7.Right foot Radiographs, 4 Views 8.Left foot Radiographs, 4 Views 9.Sacroiliac joint radiographs 3 views HISTORY: M06.4: Inflammatory polyarthritis R21: Rash R76.8: Rheumatoid factor positive COMPARISON: None. FINDINGS: Right hand: No fracture or dislocation is present. There is moderate joint space narrowing at the second and third metacarpophalangeal joints with subchondral sclerosis and osteophytes including small hooklike osteophytes. Mild to moderate involvement of the first carpometacarpal joint and several interphalangeal joints. No erosions. Bone density is normal. The soft tissues are normal. Right wrist: No acute fracture or dislocation is present. Lucency in the radialstyloid process consistent with a chronic fracture. Mild to moderate osteoarthritis at the first carpometacarpal joint. The other jointspaces are normal. No erosions. Bone density is normal. The soft tissues are normal. Left hand: No fracture or dislocation is present. There is mild joint spacenarrowing at the first through third metacarpophalangeal joints with subchondral sclerosis and osteophytes including small metacarpal hooklikeosteophytes. There is also a small hooklike osteophyte at the fourth metacarpal head. There is mild arthritis with narrowing and osteophytes and cysts at several interphalangeal joints. Bone density is normal. No definite erosions. The soft tissues are normal. Left wrist: No fracture or dislocation is present. Moderate narrowing at the first carpometacarpal joint with subchondral sclerosis, cysts, andosteophytes. The other joint spaces are maintained. No erosions are identified. The soft tissues are normal. Right knee: No fracture or dislocation is present. There is mild tricompartmental osteoarthritis. No erosions are identified. A small joint effusion is noted. The soft tissues are normal. Left knee: No fracture or dislocation is present. There is tricompartmental osteoarthritis, greatest in the medial compartment where there ismoderate narrowing. No erosions are identified. A small joint effusion is noted. The soft tissues are normal. Right foot: No fracture or dislocation is present. Mild osteoarthritis at the first metatarsophalangeal joint. No erosions are identified. The soft tissues are normal. Left foot: No fracture or dislocation is present. Mild osteoarthritis at the first metatarsophalangeal joint. No erosions are identified. The soft tissues are normal. Sacroiliac joints: There is no erosion, widening, sclerosis, narrowing, or ankylosis on either side. There is no fracture. The pubic symphysis and hip joint spaces are maintained. A 1.5 cm sclerotic lesion is seen in the right iliac bone. IMPRESSION: 1. Right hand and wrist: Moderate arthritis at the second and third metacarpophalangeal joints and mild involvement at several other joints. 2. Left hand and wrist: Mild to moderate arthritis at several metacarpal phalangeal and interphalangeal joints and the first carpometacarpaljoint. 3. Right knee: Mild osteoarthritis. 4. Left knee: Osteoarthritis, moderate in the medial compartment. 5. Right foot: Mild osteoarthritis at the first metatarsophalangealjoint. 6. Left foot: Mild osteoarthritis at the first metatarsophalangealjoint. 7. Sacroiliac joints: No arthritis. 1.5 cm nonspecific sclerotic bone lesion in the right iliac bone. Recommend clinical correlation and follow-up such as pelvic radiographs in 3 months to ensure stability. Alternatively MRI pelvis with and without contrast could be performed if further characterization is desired now. 8. Differential diagnosis: Osteoarthritis is present on the abovestudies. The prominent metacarpophalangeal involvement in the hands could be dueto rheumatoid arthritis with secondary osteoarthritis (however there is nota perceptible erosive component) or other process such as CPPDarthropathy. Report drafted by Jaret Michaud M.D. (resident) I, . BASIM HERNANDEZ MD have personally reviewed and interpreted this examination/study. This report was electronically signed by BASIM HERNANDEZ MD on08/14/2021 2:10 PM . Rufino Srinivasan MD DIAGNOSTIC IMAGING O RDERABLES * XR WRIST LEFT 2VW (08/14/2021 1:32 PM CDT) Anatomical Region Laterality Modality Wrist / Hand Radiographic Liz ging 08/14/2021 1:34 PM CDT Impressions 08/14/2021 2:10 PM CDT IMPRESSION: 1. Right hand and wrist: Moderate arthritis at the second and third metacarpophalangeal joints and mild involvement at several other joints. 2. Left hand and wrist: Mild to moderate arthritis at several metacarpal phalangeal and interphalangeal joints and the first carpometacarpal joint. 3. Right knee: Mild osteoarthritis. 4. Left knee: Osteoarthritis, moderate in the medial compartment. 5. Right foot: Mild osteoarthritis at the first metatarsophalangeal joint. 6. Left foot: Mild osteoarthritis at the first metatarsophalangeal joint. 7. Sacroiliac joints: No arthritis. 1.5 cm nonspecific sclerotic bone lesion in the right iliac bone. Recommend clinical correlation and follow-up such as pelvic radiographs in 3 months to ensure stability. Alternatively MRI pelvis with and without contrast could be performed if further characterization is desired now. 8. Differential diagnosis: Osteoarthritis is present on the above studies. The prominent metacarpophalangeal involvement in the hands could be due to rheumatoid arthritis with secondary osteoarthritis (however there is not a perceptible erosive component) or other process such as CPPD arthropathy. Report drafted by Jaret Michaud M.D. (resident) I, Dr. BASIM HERNANDEZ MD have personally reviewed and interpreted this examination/study. This report was electronically signed by BASIM HERNANDEZ MD on 08/14/2021 2:10 PM . Narrative 08/14/2021 2:10 PM CDT EXAM: 1.Right knee Radiographs, 3 Views 2.Left knee Radiographs, 3 Views 3.Right hand Radiographs, 3 Views 4.Left hand Radiographs, 3 Views 5.Right wrist Radiographs, 2 Views 6.Left wrist Radiographs, 2 Views 7.Right foot Radiographs, 4 Views 8.Left foot Radiographs, 4 Views 9.Sacroiliac joint radiographs 3 views HISTORY: M06.4: Inflammatory polyarthritis R21: Rash R76.8: Rheumatoid factor positive COMPARISON: None. FINDINGS: Right hand: No fracture or dislocation is present. There is moderate joint space narrowing at the second and third metacarpophalangeal joints with subchondral sclerosis and osteophytes including small hooklike osteophytes. Mild to moderate involvement of the first carpometacarpal joint and several interphalangeal joints. No erosions. Bone density is normal. The soft tissues are normal. Right wrist: No acute fracture or dislocation is present. Lucency in the radial styloid process consistent with a chronic fracture. Mild to moderate osteoarthritis at the first carpometacarpal joint. The other joint spaces are normal. No erosions. Bone density is normal. The soft tissues are normal. Left hand: No fracture or dislocation is present. There is mild joint space narrowing at the first through third metacarpophalangeal joints with subchondral sclerosis and osteophytes including small metacarpal hooklike osteophytes. There is also a small hooklike osteophyte at the fourth metacarpal head. There is mild arthritis with narrowing and osteophytes and cysts at several interphalangeal joints. Bone density is normal. No definite erosions. The soft tissues are normal. Left wrist: No fracture or dislocation is present. Moderate narrowing at the first carpometacarpal joint with subchondral sclerosis, cysts, and osteophytes. The other joint spaces are maintained. No erosions are identified. The soft tissues are normal. Right knee: No fracture or dislocation is present. There is mild tricompartmental osteoarthritis. No erosions are identified. A small joint effusion is noted. The soft tissues are normal. Left knee: No fracture or dislocation is present. There is tricompartmental osteoarthritis, greatest in the medial compartment where there is moderate narrowing. No erosions are identified. A small joint effusion is noted. The soft tissues are normal. Right foot: No fracture or dislocation is present. Mild osteoarthritis at the first metatarsophalangeal joint. No erosions are identified. The soft tissues are normal. Left foot: No fracture or dislocation is present. Mild osteoarthritis at the first metatarsophalangeal joint. No erosions are identified. The soft tissues are normal. Sacroiliac joints: There is no erosion, widening, sclerosis, narrowing, or ankylosis on either side. There is no fracture. The pubic symphysis and hip joint spaces are maintained. A 1.5 cm sclerotic lesion is seen in the right iliac bone. Procedure Note Basim Hernandez MD - 08/14/2021 EXAM: 1.Right knee Radiographs, 3 Views 2.Left knee Radiographs, 3 Views 3.Right hand Radiographs, 3 Views 4.Left hand Radiographs, 3 Views 5.Right wrist Radiographs, 2 Views 6.Left wrist Radiographs, 2 Views 7.Right foot Radiographs, 4 Views 8.Left foot Radiographs, 4 Views 9.Sacroiliac joint radiographs 3 views HISTORY: M06.4: Inflammatory polyarthritis R21: Rash R76.8: Rheumatoid factor positive COMPARISON: None. FINDINGS: Right hand: No fracture or dislocation is present. There is moderate joint space narrowing at the second and third metacarpophalangeal joints with subchondral sclerosis and osteophytes including small hooklike osteophytes. Mild to moderate involvement of the first carpometacarpal joint and several interphalangeal joints. No erosions. Bone density is normal. The soft tissues are normal. Right wrist: No acute fracture or dislocation is present. Lucency in the radialstyloid process consistent with a chronic fracture. Mild to moderate osteoarthritis at the first carpometacarpal joint. The other jointspaces are normal. No erosions. Bone density is normal. The soft tissues are normal. Left hand: No fracture or dislocation is present. There is mild joint spacenarrowing at the first through third metacarpophalangeal joints with subchondral sclerosis and osteophytes including small metacarpal hooklikeosteophytes. There is also a small hooklike osteophyte at the fourth metacarpal head. There is mild arthritis with narrowing and osteophytes and cysts at several interphalangeal joints. Bone density is normal. No definite erosions. The soft tissues are normal. Left wrist: No fracture or dislocation is present. Moderate narrowing at the first carpometacarpal joint with subchondral sclerosis, cysts, andosteophytes. The other joint spaces are maintained. No erosions are identified. The soft tissues are normal. Right knee: No fracture or dislocation is present. There is mild tricompartmental osteoarthritis. No erosions are identified. A small joint effusion is noted. The soft tissues are normal. Left knee: No fracture or dislocation is present. There is tricompartmental osteoarthritis, greatest in the medial compartment where there ismoderate narrowing. No erosions are identified. A small joint effusion is noted. The soft tissues are normal. Right foot: No fracture or dislocation is present. Mild osteoarthritis at the first metatarsophalangeal joint. No erosions are identified. The soft tissues are normal. Left foot: No fracture or dislocation is present. Mild osteoarthritis at the first metatarsophalangeal joint. No erosions are identified. The soft tissues are normal. Sacroiliac joints: There is no erosion, widening, sclerosis, narrowing, or ankylosis on either side. There is no fracture. The pubic symphysis and hip joint spaces are maintained. A 1.5 cm sclerotic lesion is seen in the right iliac bone. IMPRESSION: 1. Right hand and wrist: Moderate arthritis at the second and third metacarpophalangeal joints and mild involvement at several other joints. 2. Left hand and wrist: Mild to moderate arthritis at several metacarpal phalangeal and interphalangeal joints and the first carpometacarpaljoint. 3. Right knee: Mild osteoarthritis. 4. Left knee: Osteoarthritis, moderate in the medial compartment. 5. Right foot: Mild osteoarthritis at the first metatarsophalangealjoint. 6. Left foot: Mild osteoarthritis at the first metatarsophalangealjoint. 7. Sacroiliac joints: No arthritis. 1.5 cm nonspecific sclerotic bone lesion in the right iliac bone. Recommend clinical correlation and follow-up such as pelvic radiographs in 3 months to ensure stability. Alternatively MRI pelvis with and without contrast could be performed if further characterization is desired now. 8. Differential diagnosis: Osteoarthritis is present on the abovestudies. The prominent metacarpophalangeal involvement in the hands could be dueto rheumatoid arthritis with secondary osteoarthritis (however there is nota perceptible erosive component) or other process such as CPPDarthropathy. Report drafted by Jaret Michaud M.D. (resident) I, Dr. BASIM HERNANDEZ MD have personally reviewed and interpreted this examination/study. This report was electronically signed by BASIM HERNANDEZ MD on08/14/2021 2:10 PM . Rufino Srinivasan MD DIAGNOSTIC IMAGING O RDERABLES * XR SI JOINTS 3VW OR MORE (08/14/2021 1:32 PM CDT) Anatomical Region Laterality Modality Pelvis, Lower Extremity [facility] 08/14/2021 1:34 PM CDT Impressions 08/14/2021 2:10 PM CDT IMPRESSION: 1. Right hand and wrist: Moderate arthritis at the second and third metacarpophalangeal joints and mild involvement at several other joints. 2. Left hand and wrist: Mild to moderate arthritis at several metacarpal phalangeal and interphalangeal joints and the first carpometacarpal joint. 3. Right knee: Mild osteoarthritis. 4. Left knee: Osteoarthritis, moderate in the medial compartment. 5. Right foot: Mild osteoarthritis at the first metatarsophalangeal joint. 6. Left foot: Mild osteoarthritis at the first metatarsophalangeal joint. 7. Sacroiliac joints: No arthritis. 1.5 cm nonspecific sclerotic bone lesion in the right iliac bone. Recommend clinical correlation and follow-up such as pelvic radiographs in 3 months to ensure stability. Alternatively MRI pelvis with and without contrast could be performed if further characterization is desired now. 8. Differential diagnosis: Osteoarthritis is present on the above studies. The prominent metacarpophalangeal involvement in the hands could be due to rheumatoid arthritis with secondary osteoarthritis (however there is not a perceptible erosive component) or other process such as CPPD arthropathy. Report drafted by Jaret Michaud M.D. (resident) I, Dr. BASIM HERNANDEZ MD have personally reviewed and interpreted this examination/study. This report was electronically signed by BASIM HERNANDEZ MD on 08/14/2021 2:10 PM . Narrative 08/14/2021 2:10 PM CDT EXAM: 1.Right knee Radiographs, 3 Views 2.Left knee Radiographs, 3 Views 3.Right hand Radiographs, 3 Views 4.Left hand Radiographs, 3 Views 5.Right wrist Radiographs, 2 Views 6.Left wrist Radiographs, 2 Views 7.Right foot Radiographs, 4 Views 8.Left foot Radiographs, 4 Views 9.Sacroiliac joint radiographs 3 views HISTORY: M06.4: Inflammatory polyarthritis R21: Rash R76.8: Rheumatoid factor positive COMPARISON: None. FINDINGS: Right hand: No fracture or dislocation is present. There is moderate joint space narrowing at the second and third metacarpophalangeal joints with subchondral sclerosis and osteophytes including small hooklike osteophytes. Mild to moderate involvement of the first carpometacarpal joint and several interphalangeal joints. No erosions. Bone density is normal. The soft tissues are normal. Right wrist: No acute fracture or dislocation is present. Lucency in the radial styloid process consistent with a chronic fracture. Mild to moderate osteoarthritis at the first carpometacarpal joint. The other joint spaces are normal. No erosions. Bone density is normal. The soft tissues are normal. Left hand: No fracture or dislocation is present. There is mild joint space narrowing at the first through third metacarpophalangeal joints with subchondral sclerosis and osteophytes including small metacarpal hooklike osteophytes. There is also a small hooklike osteophyte at the fourth metacarpal head. There is mild arthritis with narrowing and osteophytes and cysts at several interphalangeal joints. Bone density is normal. No definite erosions. The soft tissues are normal. Left wrist: No fracture or dislocation is present. Moderate narrowing at the first carpometacarpal joint with subchondral sclerosis, cysts, and osteophytes. The other joint spaces are maintained. No erosions are identified. The soft tissues are normal. Right knee: No fracture or dislocation is present. There is mild tricompartmental osteoarthritis. No erosions are identified. A small joint effusion is noted. The soft tissues are normal. Left knee: No fracture or dislocation is present. There is tricompartmental osteoarthritis, greatest in the medial compartment where there is moderate narrowing. No erosions are identified. A small joint effusion is noted. The soft tissues are normal. Right foot: No fracture or dislocation is present. Mild osteoarthritis at the first metatarsophalangeal joint. No erosions are identified. The soft tissues are normal. Left foot: No fracture or dislocation is present. Mild osteoarthritis at the first metatarsophalangeal joint. No erosions are identified. The soft tissues are normal. Sacroiliac joints: There is no erosion, widening, sclerosis, narrowing, or ankylosis on either side. There is no fracture. The pubic symphysis and hip joint spaces are maintained. A 1.5 cm sclerotic lesion is seen in the right iliac bone. Procedure Note Basim Hernandez MD - 08/14/2021 EXAM: 1.Right knee Radiographs, 3 Views 2.Left knee Radiographs, 3 Views 3.Right hand Radiographs, 3 Views 4.Left hand Radiographs, 3 Views 5.Right wrist Radiographs, 2 Views 6.Left wrist Radiographs, 2 Views 7.Right foot Radiographs, 4 Views 8.Left foot Radiographs, 4 Views 9.Sacroiliac joint radiographs 3 views HISTORY: M06.4: Inflammatory polyarthritis R21: Rash R76.8: Rheumatoid factor positive COMPARISON: None. FINDINGS: Right hand: No fracture or dislocation is present. There is moderate joint space narrowing at the second and third metacarpophalangeal joints with subchondral sclerosis and osteophytes including small hooklike osteophytes. Mild to moderate involvement of the first carpometacarpal joint and several interphalangeal joints. No erosions. Bone density is normal. The soft tissues are normal. Right wrist: No acute fracture or dislocation is present. Lucency in the radialstyloid process consistent with a chronic fracture. Mild to moderate osteoarthritis at the first carpometacarpal joint. The other jointspaces are normal. No erosions. Bone density is normal. The soft tissues are normal. Left hand: No fracture or dislocation is present. There is mild joint spacenarrowing at the first through third metacarpophalangeal joints with subchondral sclerosis and osteophytes including small metacarpal hooklikeosteophytes. There is also a small hooklike osteophyte at the fourth metacarpal head. There is mild arthritis with narrowing and osteophytes and cysts at several interphalangeal joints. Bone density is normal. No definite erosions. The soft tissues are normal. Left wrist: No fracture or dislocation is present. Moderate narrowing at the first carpometacarpal joint with subchondral sclerosis, cysts, andosteophytes. The other joint spaces are maintained. No erosions are identified. The soft tissues are normal. Right knee: No fracture or dislocation is present. There is mild tricompartmental osteoarthritis. No erosions are identified. A small joint effusion is noted. The soft tissues are normal. Left knee: No fracture or dislocation is present. There is tricompartmental osteoarthritis, greatest in the medial compartment where there ismoderate narrowing. No erosions are identified. A small joint effusion is noted. The soft tissues are normal. Right foot: No fracture or dislocation is present. Mild osteoarthritis at the first metatarsophalangeal joint. No erosions are identified. The soft tissues are normal. Left foot: No fracture or dislocation is present. Mild osteoarthritis at the first metatarsophalangeal joint. No erosions are identified. The soft tissues are normal. Sacroiliac joints: There is no erosion, widening, sclerosis, narrowing, or ankylosis on either side. There is no fracture. The pubic symphysis and hip joint spaces are maintained. A 1.5 cm sclerotic lesion is seen in the right iliac bone. IMPRESSION: 1. Right hand and wrist: Moderate arthritis at the second and third metacarpophalangeal joints and mild involvement at several other joints. 2. Left hand and wrist: Mild to moderate arthritis at several metacarpal phalangeal and interphalangeal joints and the first carpometacarpaljoint. 3. Right knee: Mild osteoarthritis. 4. Left knee: Osteoarthritis, moderate in the medial compartment. 5. Right foot: Mild osteoarthritis at the first metatarsophalangealjoint. 6. Left foot: Mild osteoarthritis at the first metatarsophalangealjoint. 7. Sacroiliac joints: No arthritis. 1.5 cm nonspecific sclerotic bone lesion in the right iliac bone. Recommend clinical correlation and follow-up such as pelvic radiographs in 3 months to ensure stability. Alternatively MRI pelvis with and without contrast could be performed if further characterization is desired now. 8. Differential diagnosis: Osteoarthritis is present on the abovestudies. The prominent metacarpophalangeal involvement in the hands could be dueto rheumatoid arthritis with secondary osteoarthritis (however there is nota perceptible erosive component) or other process such as CPPDarthropathy. Report drafted by Jaret Michaud M.D. (resident) IDr. BASIM MD have personally reviewed and interpreted this examination/study. This report was electronically signed by BASIM HERNANDEZ MD on08/14/2021 2:10 PM . Rufino Srinivasan MD DIAGNOSTIC IMAGING O RDERABLES * QUANTIFERON-TB GOLD PLUS 4-TUBE (08/14/2021 12:58 PM CDT) QuantiFERON NIL 0.03 IU/mL 2 3:23 PM CDT [facility] ([facility]) Comment:Performed By: CHICHI Somers [address] [id number] Director: Melissa Deng MD QuantiFERON TB Gold Plus Negative Negative 08/16/2021 3:23 PM CDT [facility] ([facility]) Comment: Interpretive Data: Quantiferon TB Gold Plus Interferon gamma release is measured for specimens from each of the four collection tubes. A qualitative result (Negative, Positive, or Indeterminate) is based on interpretation of the four values, NIL, MITOGEN minus NIL (MITOGEN-NIL), TB1 minus NIL (TB1-NIL), and TB2 minus NIL (TB2-NIL). The NIL value represents nonspecific reactivity produced by the patient specimen. The MITOGEN-NIL value serves as the positive control for the patient specimen, demonstrating successful lymphocyte activity. The TB1-NIL tube specifically detects CD4+ lymphocyte reactivity, specifically stimulated by the TB1 antigens. The TB2-NIL tube detects both CD4+ and CD8+ lymphocyte reactivity, stimulated by TB2 antigens. An overall Negative result does not completely rule out TB infection. A false-positive result in the absence of other clinical evidence of TB infection is not uncommon. Refer to: Updated Guidelines for Using Interferon Gamma Release Assays to Detect Mycobacterium tuberculosis Infection --- [place], 2010 (http://www.cdc.gov/mmwr/preview/mmwrhtml/nk9884m6.htm), for more information concerning test performance in low-prevalence populations and use in occupational screening. QuantiFERON Plus TB1 Minus NIL 0.07 0.00 - 0.34 IU/mL 08/16/2021 3:23 PM CDT [employer] [facility] QuantiFERON Plus TB2 Minus NIL 0.11 0.00 - 0.34 IU/mL 08/16/2021 3:23 PM CDT [facility] QuantiFERON Mitogen Minus NIL 9.74 IU/mL 08/16/2021 3:23 PM CDT [facility] Blood BLOOD SPECIMEN / Unknown Lab Venipuncture / Unknown 08/14/2021 12:58 PM CDT 08/14/2021 1:12 PM CDT Rufino Srinivasan MD LAB - CHEMISTRY EVAN SNYDER [facility] Organization Address City/State/ZIP Co de Phone Number [facility] [employer] [facility]) [address] * HEPATITIS B SURFACE ANTIBODY (08/14/2021 12:58 PM CDT) Hepatitis B Virus Surface Antibody Non-react lizette Non-react lizette 08/14/2021 2:58 PM CDT [facility] Comment: < 8 mIU/mL Hepatitis B surface Antibody (HBsAb). Nonreactive for HBsAb - individual is considered not immune to Hepatitis B Virus infection. Hepatitis B Surface Antibody Quantitative 0.3 <8.0 mIU/mL 08/14/2021 2:58 PM CDT [facility] Comment: Hepatitis B Surface Antibody Numeric Result Interpretation: Nonreactive: <8.0 mIU/mL Indeterminate: 8.0 - 12.0 mIU/mL Reactive: >12.0 mIU/mL Blood BLOOD SPECIMEN / Unknown Lab Venipuncture / Unknown 08/14/2021 12:58 PM CDT 08/14/2021 1:10 PM CDT Rufino Srinivasan MD LAB - CHEMISTRY EVAN SNYDER [address] [address], [place] [phone] * HEPATITIS B CORE ANTIBODY (08/14/2021 12:58 PM CDT) HBc Antibody Total Non-reacti ve Non-reacti ve 08/14/2021 2:58 PM CDT [facility] Blood BLOOD SPECIMEN / Unknown Lab Venipuncture / Unknown 08/14/2021 12:58 PM CDT 08/14/2021 1:10 PM CDT Rufino Srinivasan MD LAB - CHEMISTRY EVAN SNYDER Performing Organization Address [facility]/ZIP Co de Phone Number [address] [address], [place] [phone] * HEPATITIS B SURFACE ANTIGEN W RFLX CONFIRMATION (08/14/2021 12:58 PM CDT) Hepatitis B Virus Surface Antigen Non-reacti ve Non-reacti ve 08/14/2021 2:58 PM CDT [facility] Blood BLOOD SPECIMEN / Unknown Lab Venipuncture / Unknown 08/14/2021 12:58 PM CDT 08/14/2021 1:10 PM CDT Rufino Srinivasan MD LAB - CHEMISTRY EVAN SNYDER Performing Organization Address City/[facility]/ZIP Co de Phone Number [address] [address], [place] [phone] * HEPATITIS C ANTIBODY (08/14/2021 12:58 PM CDT) Hepatitis C Antibody Non-react lizette Non-reac tive 08/14/2021 2:58 PM CDT [facility] Comment:Hepatitis C Antibody screen indicates no serologic evidence of past or current infection with Hepatitis C Virus. Patients with unexplained liver disease who are immunocompromised or suspected of having acute Hepatitis C infection may benefit from Nucleic Acid Test (KANDY) for Hepatitis C Viral RNA to confirm Hepatitis C status. Blood BLOOD SPECIMEN / Unknown Lab Venipuncture / Unknown 08/14/2021 12:58 PM CDT 08/14/2021 1:10 PM CDT Rufino Srinivasan MD LAB - CHEMISTRY EVAN SNYDER [facility] [address] [place] [address], [facility] [phone] * CULTURE AEROBIC (06/16/2021 11:57 AM BOOM CONVEYOR OPERATOR) Pathologist [facility] [place] [facility] Comment: CULTURE, AEROBIC BACTERIA Micro Number: [id number] Test Status: Final Specimen Source: Wound Specimen Quality: Adequate Result: No Growth Test Performed at: [id number] [address] KO SWAIN MD Microbiology SPECIMEN FROM WOUND / Unknown 06/16/2021 11:57 AM BOOM CONVEYOR OPERATOR 06/16/2021 11:17 PM BOOM CONVEYOR OPERATOR Bennett Santos MD LAB - MICROBIOLOGY O RDERABLES [address] [address] Care Teams Sock Turner Relationship Specialty Start Date End Date Jaron Nieto MD [address] [place] [address] PCP - General Fashion Consultant 04/26/21
--- OUTSIDE RECORDS SUMMARY | 2024-06-03 09:15 | XMS_ITS | Clinical Summary ---
Author Organization [facility] Address [address] [place] [address] Care Team Providers Care Floor Sweeper Name Role Phone Jaron Nieto MD Primary Care Provider [phone] Source Comments [facility],non-owned Affiliates and Associated Physician Practices is amultiple site organization consisting of ambulatory clinics and hospital sitesin [place], [place], [place] and [place]. This disclosure is being madepursuant to the Care Everywhere program and may not contain all information available regarding this patient. Last updated 18.[facility] Allergies No known active allergies Medications * Be aware that medications may not be up to date on this document. Alwaysverify current medications with the patient. Medication Sig Dispensed Refills Start Date End Date Status Basaglar KwikPen (BASAGLAR) pen Inject 50 Units subcutaneously at bedtime 04/27/2021 Active lisinopril (PRINIVIL; ZESTRIL) 20 MG tablet Take 20 mg by mouth once daily 04/05/2021 Active sertraline (ZOLOFT) 50 MG tablet Take 50 mg by mouth once daily 06/14/2021 Active amLODIPine (NORVASC) 10 MG tablet Take 10 mg by mouth once daily 06/14/2021 Active atorvastatin (LIPITOR) 40 MG tablet Take 40 mg by mouth at bedtime 05/30/2021 Active isosorbide mononitrate CR 24hr (IMDUR) 30 MG tablet Take 30 mg by mouth once daily 06/14/2021 Active Trulicity 1.5 MG/0.5ML injection Inject 1.5 mg subcutaneously every 7 days 11/21/2021 Active gabapentin (Neurontin) 600 MG tabletIndications :Rash and other nonspecific skin eruption Take 2 pills 3 times per day. 180 tablet 2 12/13/2021 Active pantoprazole EC (Protonix) 40 MG tablet 12/21/2021 Active Active Problems Problem Noted Date Diagnosed Date Elevated beta-2 microglobulin 12/13/2021 Type 2 diabetes mellitus wit hout complication, with long-term current use of insulin 08/14/2021 Essential (primary) hypertension 08/14/2021 GERD (gastroesophageal reflux disease) CAD (coronary artery disease) 08/14/2021 Inflammatory polyarthritis 08/14/2021 Rheumatoid factor positive 08/14/2021 Resolved Problems Problem Noted Date Diagnosed Date Resolved Date Rash 08/14/2021 01/10/2022 Immunizations Name Administration Dates Next Due INFLUENZA VACCINE 06/09/2021 INFLUENZA VACCINE, QUADR. (F LUZONE; FLULAVAL; FLUARIX; AFLURIA QUADRIVALENT; 6MO+), 0.5 ML (IIV4) 03/04/2019 Pneumococcal Pcv13 Conj 08/14/2018 TDAP, HISTORIC VACCINE 05/28/2019 Zoster Hzv Vacc Recombinant Inj Im 12/24/2018 Family History Medical History Relation Name Comments None Known Brother CAD (Coronary Artery Disease) Father None Known Maternal Aunt None Known Maternal Grandfather None Known Maternal Grandmother None Known Maternal Uncle Hypertension Mother None Known Other None Known Paternal Aunt None Known Paternal Grandfather None Known Paternal Grandmother None Known Paternal Uncle None Known Sister Arthritis - Rheumatoid Neg Hx Asthma Neg Hx CVA Neg Hx Cancer - Breast Neg Hx Cancer - Other Neg Hx Cancer - Skin, Melanoma Neg Hx Cancer - Skin, Non Melanoma Neg Hx Celiac Disease Neg Hx Crohn's Disease Neg Hx Eczema Neg Hx Hemophilia Neg Hx Lupus Neg Hx Psoriasis Neg Hx Ulcerative Colitis Neg Hx Relation Name Status Comments Brother Father Maternal Aunt Maternal Grandfather Maternal Grandmother Maternal Uncle Mother Other Paternal Aunt Paternal Grandfather Paternal Grandmother Paternal Uncle Sister Social History Tobacco Use Types Packs/Day Years [...] Mass Index 31.46 12/13/2021 8:07 AM CDT Plan of Treatment Health Maintenance Due Date Last Done Comments COLOGUARD (AGES 45-75) - COL ON CA SCREENING 1959 COLON MONITORING 1959 COLONOSCOPY - COLON CA SCREENING 1959 CT COLONOGRAPHY - COLON CA SCREENING 1960 Colorectal Cancer Screening 1959 FIT - COLON CA SCREENING 1959 FLEX SIG - COLON CA SCREENING 1959 HIV SCREENING 07/31/1974 PNEUMOCOCCAL VACCINE 50+ (2 of 2 - PPSV23) 10/09/2018 08/14/2018 PNEUMOCOCCAL VACCINE (2 of 2 - PPSV23) 10/09/2018 08/14/2018 ZOSTER VACCINE (2 of 2) 02/18/2019 12/24/2018 Respiratory Syncytial Virus (RSV) Vaccine Pt: or over 60 yrs (1 - Risk 60-74 years 1-dose series) 2019 DIABETES RETINOPATHY SCREENING 08/14/2021 DIABETES-FOOT EXAM WITH MONOFILAMENT 08/14/2021 DIABETES-HGB A1C 03/15/2022 12/13/2021 DIABETES-SERUM CREATININE 12/13/20222021, 08/14/2021 COVID-19 VACCINE (3 - 2023-2 5 season) 2023 05/02/2021, 06/27/2020 INFLUENZA VACCINE (#1) 2023 2, 03/04/2019 DEPRESSION SCREENING 04/22/2024 09/14/2021 DIABETES - URINE PROTEIN SCREENING 04/22/2024 DTAP/TDAP/TD VACCINES (2 - T d or Tdap) 05/28/2029 05/28/2019 HEPATITIS C SCREENING Completed 08/14/2021 HEPATITIS B VACCINE Aged Out No longe r eligible based on patient's age to complete this topic HIB VACCINE Aged Out No longer eligi ble based on patient's age to complete this topic HPV VACCINE Aged Out No longer eligi ble based on patient's age to complete this topic MENINGOCOCCAL (Group B) VACCINE Aged Out No longer eligible b ased on patient's age to complete this topic MENINGOCOCCAL VACCINE Aged Out No brigette yair eligible based on patient's age to complete this topic Procedures Procedure Name Priority Date/Time Associated Diagnosis Comments COMPREHENSIVE METABOLIC PANEL Routine 12/13/2021 9:38 AM CDT Inflammatory polyarthritis (HCC) Rheumatoid factor positive Rash Elevated beta-2 microglobulin HEMOGLOBIN A1C Routine 12/13/2021 9:38 AM CDT Inflammatory polyarthritis (HCC) Rheumatoid factor positive Rash Elevated beta-2 microglobulin Type 2 diabetes mellitus without complication, with long-term current use of insulin (HCC) HEPATITIS C ANTIBODY Routine 08/14/2021 12:58 PM CDT Inflammatory polyarthritis (HCC) Rash Rheumatoid factor positive Need for hepatitis C screening test from Last 3 Months or Most Recently Relevant to Health Maintenance Results * (ABNORMAL) HEMOGLOBIN A1C (12/13/2021 9:38 AM CDT) Hemoglobin A1c 9.6(H) <=5.6 % 12/13/2021 11:50 AM CDT [facility] Estimated Average Glucose 229 mg/dL 12/13/2021 11:50 AM T [facility] Comment: HbA1c Interpretation: Normal : < 5.7% Pre-diabetes: 5.7-6.4% Diabetes: Equal to or greater than 6.5% Test results diagnostic of diabetes should be repeated for confirmation. Treatment target values recommended by ADA and other clinical organizations should be used to evaluate metabolic control in patients. Reference: [place] Diabetes Association, Standards of Care in Diabetes -2020 In patients 70 years and older consider HbA1c target range of 7.0-7.5% (Reference: Celeste A, et carla. RILEY. 2012) The Sebia assay for the measurement of HbA1c is a National Glycohemoglobin Standardization Program (NGSP) certified method. Blood BLOOD SPECIMEN / Unknown Lab Venipuncture / Unknown 12/13/2021 9:38 AM CDT 12/13/2021 10:17 AM CDT Rufino Srinivasan MD LAB - CHEMISTRY EVAN SNYDER [facility] Organization Address City/State/ZIP Co de Phone Number [facility] [address] [place] [address], [facility] [phone] * (ABNORMAL) COMPREHENSIVE METABOLIC PANEL (12/13/2021 9:38 AM CDT) BUN 12 7 - 26 mg/dL 12/13/2021 10:55 AM [facility] Creatinine 0.79 0.71 - 1.16 mg/dL 12/13/2021 10:55 AM [facility] Sodium 137 136 - 145 mmol/L 12/13/2021 10:55 AM [facility] Potassium 4.0 3.5 - 4.5 mmol/L 12/13/2021 10:55 AM [facility] Chloride 104 98 - 107 mmol/L 12/13/2021 10:55 AM [facility] CO2 23 22 - 29 mmol/L 12/13/2021 10:55 AM [facility] Glucose 121(H) 70 - 115 mg/dL 12/13/2021 10:55 AM [facility] Calcium 9.3 8.4 - 10.2 mg/dL 12/13/2021 10:55 AM [facility] Protein Total 7.5 6.0 - 8.3 g/dL 12/13/2021 10:55 AM [facility] Albumin 4.0 3.4 - 5.0 g/dL 12/13/2021 10:55 AM [facility] Bilirubin Total 0.4 0.2 - 1.2 mg/dL 12/13/2021 10:55 AM [facility] Alkaline Phosphatase 70 40 - 150 U/L 12/13/2021 10:55 AM [facility] ALT 32 5 - 55 U/L 12/13/2021 10:55 AM [facility] AST 24 5 - 34 U/L 12/13/2021 10:55 AM [facility] Anion Gap 14 8 - 18 12/13/2021 10:55 AM [facility] BUN/Creatinine Ratio 15 7 - 23 12/13/2021 10:55 AM [facility] Osmolality Calculated 285 270 - 300 mOsm/kg 12/13/2021 10:55 AM [facility] Albumin/Globulin Ratio 1.1 1.1 - 2.3 12/13/2021 10:55 AM [facility] eGFR by CKD-EPI >90 >=90 mL/min/1.7 3 m2 12/13/2021 10:55 AM [facility] Blood BLOOD SPECIMEN / Unknown Lab Venipuncture / Unknown 12/13/2021 9:38 AM CDT 12/13/2021 10:17 AM CDT Rufino Srinivasan MD LAB - CHEMISTRY EVAN SNYDER [address] [address] [phone] * HEPATITIS C ANTIBODY (08/14/2021 12:58 PM CDT) [facility] Hepatitis C Antibody Non-react lizette Non-reac tive 08/14/2021 2:58 PM [facility] Comment:Hepatitis C Antibody screen indicates no [...] Srinivasan MD LAB - CHEMISTRY EVAN SNYDER [address] [place] [address], [facility] [phone] from Last 3 Months or Most Recently Relevant to Health Maintenance Insurance Payer Benefit Plan / Group Subscriber ID Effective Dates Phone Address Type MEDICARE MANAGED CARE PLAN GENERIC MEDICARE ADV [place]PLETE MEDICARE [place] [id number] 2021-Pres ent [id number] [address] [place] [address] Medicare-Man aged Care MEDICAID - OUT OF STATE MEDICAID - [place] PUBLIC [place] [id number] Effective for all dates [address] [address] [place] [address] Medicaid [facility] HEALTH PLAN [facility] MEDICAID [id number] 2021-Pres ent [address] [place] [address] Medicaid Managed Care Care Teams Floor Sweeper Relationship Specialty Start Date End Date Jaron Nieto MD [address] [place] [address] PCP - General Help Desk Intern 04/26/21
--- OUTSIDE RECORDS SUMMARY | 2024-06-03 09:15 | XMS_ITS | Clinical Summary ---
Author Organization [facility] Address [address] [place] [address] Care Team Providers Care Diplomatic Interpreter/Translator Name Role Phone Khurram Hayes DO Primary Care Provider [phone] Social History Tobacco Use Types Packs/Day Years Used Date Smoking Tobacco: Never Assessed Sex and Gender Information Value Date Recorded Sex Assigned at Not on file Legal Sex Male 1:27 AM CDT Gender Identity Not on file Sexual Orientation Not on file Plan of Treatment Health Maintenance Due Date Last Done Comments Colorectal Cancer Screening Colonoscopy (10 Years) 1959 Annual Physical 07/31/1962 DTaP, Tdap and Td Vaccines ( 1 - Tdap) 07/31/1978 Zoster Vaccines (2 of 2) 02/18/2019 12/24/2018 COVID-19 Vaccine ( - 2023-2 5 season) 2023 Influenza Adult (#1) 2024 RSV Immunization or 60+ Years (1 - 1-dose 75+ series) 07/31/2034 Pneumococcal Vaccine: Pediat rics (0 to 5 Years) and At-Risk Patients (6 to 64 Years) Aged Out 08/14/2018 No longer eligi ble based on patient's age to complete this topic Hepatitis C Completed 10/13/2019 Meningococcal B Vaccine Aged Out No l onger eligible based on patient's age to complete this topic Meningococcal Vaccine Aged Out No brigette yair eligible based on patient's age to complete this topic RSV Immunizations Under 20 Months Aged Out No longer eligible based on patient's age to complete this topic Procedures Procedure Name Priority Date/Time Associated Diagnosis Comments HEPATITIS C ANTIBODY Routine 10/13/2019 10:16 AM CDT Elevated rheumatoid factor from Last 3 Months or Most Recently Relevant to Health Maintenance Results * HEPATITIS C ANTIBODY (10/13/2019 10:16 AM CDT) HEPATITIS C AB NON-REACTI VE NON-REACT SHERLY 10/13/2019 2:09 PM CDT [facility] Comment: ANTIBODIES TO HCV NOT DETECTED. DOES NOT EXCLUDE THE POSSIBILITY OF EXPOSURE TO HCV. 10/13/2019 10:1 6 AM CDT us Suman Newman MD LABORATORY Final Result [facility] [address] [place] [address], [phone] from Last 3 Months or Most Recently Relevant to Health Maintenance Insurance MEDICAID MEDICARE Care Teams Diplomatic Interpreter/Translator Relationship Specialty Start Date End Date Khurram Hayes DO [address] [place] [address] PCP - General INTERNAL MEDICINE 10/13/19
--- OUTSIDE RECORDS SUMMARY | 2024-06-03 09:15 | XMS_ITS | Referral Summary ---
Author Organization [facility] Address [address] [facility] [place] [address] Care Team Providers Care Relief Captain Name Role Phone Jaron Nieto MD Primary Care Provider [phone] Source Comments [facility] [employer],non-owned Affiliates and Associated Physician Practices is amultiple site organization consisting of ambulatory clinics and hospital sitesin [place], [place], [place] and [place]. This disclosure is being madepursuant to the Care Everywhere program and may not contain all information available regarding this patient. Last updated 18.[facility] Allergies No known active allergies Medications * [...] Zoster Hzv Vacc Recombinant Inj Im 12/24/2018 Social History Tobacco Use Types Packs/Day Years [...] 12/13/2021 8:07 AM CDT Plan of Treatment Not on file Procedures Procedure Name Priority Date/Time Associated Diagnosis [...] 9.6(H) <=5.6 % 12/13/2021 11:50 AM CDT [facility] Estimated Average Glucose 229 mg/dL 12/13/2021 11:50 AM T [facility] Comment: HbA1c Interpretation: Normal : < 5.7% Pre-diabetes: 5.7-6.4% Diabetes: Equal to or greater than 6.5% Test results diagnostic of diabetes should be repeated for confirmation. Treatment target values recommended by ADA and other clinical organizations should be used to evaluate metabolic control in patients. Reference: [place] Diabetes Association, Standards of Care in Diabetes [...] Srinivasan MD LAB - CHEMISTRY EVAN SNYDER [facility] Organization Address City/State/ZIP Co de Phone Number [facility] [address] [place] [id number] [phone] * (ABNORMAL) COMPREHENSIVE METABOLIC PANEL (12/13/2021 9:38 AM [facility]) BUN 12 7 - 26 mg/dL 12/13/2021 10:55 AM [facility] Creatinine 0.79 0.71 - 1.16 mg/dL 12/13/2021 10:55 AM [facility] Sodium 137 136 - 145 mmol/L 12/13/2021 10:55 AM [facility] Potassium 4.0 3.5 - 4.5 mmol/L 12/13/2021 10:55 AM [facility] Chloride 104 98 - 107 mmol/L 12/13/2021 10:55 AM [facility] CO2 23 22 - 29 mmol/L 12/13/2021 10:55 AM [facility] Glucose 121(H) 70 - 115 mg/dL 12/13/2021 10:55 AM [facility] Calcium 9.3 8.4 - 10.2 mg/dL 12/13/2021 10:55 AM [facility] Protein Total 7.5 6.0 - 8.3 g/dL 12/13/2021 10:55 AM [facility] Albumin 4.0 3.4 - 5.0 g/dL 12/13/2021 10:55 AM [facility] Bilirubin Total 0.4 0.2 - 1.2 mg/dL 12/13/2021 10:55 AM [facility] Alkaline Phosphatase 70 40 - 150 U/L 12/13/2021 10:55 AM [facility] ALT 32 5 - 55 U/L 12/13/2021 10:55 AM [facility] AST 24 5 - 34 U/L 12/13/2021 10:55 AM [facility] Anion Gap 14 8 - 18 12/13/2021 10:55 AM [facility] BUN/Creatinine Ratio 15 7 - 23 12/13/2021 10:55 AM [facility] Osmolality Calculated 285 270 - 300 mOsm/kg 12/13/2021 10:55 AM CDT [facility] Albumin/Globulin Ratio 1.1 1.1 - 2.3 12/13/2021 10:55 AM CDT [facility] eGFR by CKD-EPI >90 >=90 mL/min/1.7 3 m2 12/13/2021 10:55 AM CDT [facility] Blood BLOOD SPECIMEN / Unknown Lab Venipuncture / Unknown 12/13/2021 9:38 AM CDT 12/13/2021 10:17 AM CDT Rufino Srinivasan MD LAB - CHEMISTRY EVAN SNYDER [facility] [address] [place] [address], [place] [phone] * HEPATITIS C ANTIBODY (08/14/2021 12:58 PM CDT) Hepatitis C Antibody Non-react lizette Non-reac tive 08/14/2021 2:58 PM CDT [facility] Comment:Hepatitis C Antibody screen indicates no serologic [...] MD LAB - CHEMISTRY EVAN SNYDER [facility] [address] [place] [address], [place] [phone] from Last 3 Months or Most Recently Relevant to Health Maintenance Insurance Payer Benefit Plan / Group Subscriber ID Effective Dates Phone Address Type MEDICARE MANAGED CARE PLAN GENERIC MEDICARE ADV [place] COMPLETE MEDICARE [place] OF [place] [id number] 2021-Pres ent [address] [place] [address] Medicare-Man aged Care MEDICAID - OUT OF STATE MEDICAID - [place] PUBLIC AID [id number] Effective for all dates [address] [address] [place] [address] Medicaid [employer] [employer] [place] [id number] 2021-Pres ent [address] [place] [address] Medicaid Managed Care Care Teams Relief Captain Relationship Specialty Start Date End Date Jaron Nieto MD [address] [place] [address] PCP - General Fence Erector 04/26/21
[2024-06-03 09:19] LABS: Hemoglobin A1C 6.6 % (<5.7)
[2024-06-03 09:25] LABS: Add Urine Microscopic? NO; Appearance Urine Clear (Clear); Bilirubin Urine Negative (Negative); Blood Urine Negative (Negative); Color Urine Yellow (Yellow); Glucose Urine UA Negative (Negative); Ketones Urine Negative (Negative); Leukocyte Esterase Ur Negative LEU/UL (Negative); Nitrate Urine Negative (Negative); Protein Urine Negative (Negative); Specific Grav Ur 1.025 (1.010-1.020); Urobilinogen Urine 0.2 mg/dL (0.2-1.0)
[2024-06-03 09:30] LABS: Creatinine Urine 259.49 mg/dL (40-278); Microalbumin Urine Random < 13.0 mg/L
[2024-06-03 09:51] LABS: Alanine Aminotransferase 40 U/L (16-63); Albumin Level 4.4 g/dL (3.4-5.0); Alkaline Phosphatase 76 U/L (46-116); Anion Gap 8 mmol/L (4-12); Aspartate Amino Transferase 20 U/L (15-37); Bilirubin,Total 0.7 mg/dL (0.00-1.00); Blood Urea Nitrogen 20 mg/dL (7-18); Calcium 9.4 mg/dL (8.5-10.1); Carbon Dioxide 31 mmol/L (21-32); Chloride 102 mmol/L (98-108); Cholesterol 148 mg/dL (0-200); Creatine Kinase 108 U/L (39-308); Estimated Glomerular Filt Rate > 60; Glucose 122 mg/dL (70-99); HDL Direct 39 mg/dL (40-60); LDL Cholesterol Calculated 74 mg/dL (<130); Osmolality Calculated 295 mOsm/kg (285-295); Sodium 141 mmol/L (136-145); Total Protein 7.6 g/dL (6.4-8.2); Triglycerides 176 mg/dL (0-150)
[2024-06-03 09:52] LABS: Potassium 5.4 mmol/L (3.5-5.1)
== END 2024-06-03 08:46 | disposition home or self-care (01) ==
PROVIDERS: PCP Internal Medicine; Visit Provider Internal Medicine
DX: E11.65 Type 2 diabetes mellitus with hyperglycemia (principal); N39.0 Urinary tract infection, site not specified; E78.2 Mixed hyperlipidemia
CPT/HCPCS: 36415; 80053; 80061; 81003; 82043; 82550; 83036; 85027

== ENCOUNTER 2024-09-10 08:44 | Outpatient (CLI) | payer OTHER, SELFPAY ==
--- OUTSIDE RECORDS SUMMARY | 2024-09-10 08:53 | XMS_ITS | Clinical Summary ---
Author Organization [facility] Address [address] [place] [address] Care Team Providers Care Microbiology Supervisor Name Role Phone Jaron Nieto MD Primary Care Provider [phone] Source Comments [facility],non-owned Affiliates and Associated Physician Practices is amultiple site organization consisting of ambulatory clinics and hospital sitesin [place], [place] and [place]. This disclosure is being madepursuant to the Care Everywhere program and may not contain all information available regarding this patient. Last updated 18.[facility] Allergies No known active allergies Medications * Be aware that medications may not be up to date on this document. Alwaysverify current medications with the patient. Basaglar KwikPen (BASAGLAR) pen Inject 50 Units subcutaneously at bedtime 04/27/19 22 Active lisinopril (PRINIVIL; ZESTRIL) 20 MG tablet Take 20 mg by mouth once daily 04/05/20 21 Active sertraline (ZOLOFT) 50 MG tablet Take 50 mg by mouth once daily 06/14/19 22 Active amLODIPine (NORVASC) 10 MG tablet Take 10 mg by mouth once daily 06/14/19 22 Active atorvastatin (LIPITOR) 40 MG tablet Take 40 mg by mouth at bedtime 05/30/19 22 Active isosorbide mononitrate CR 24hr (IMDUR) 30 MG tablet Take 30 mg by mouth once daily 06/14/19 22 Active Trulicity 1.5 MG/0.5ML injection Inject 1.5 mg subcutaneously every 7 days 11/22/19 22 Active gabapentin (Neurontin) 600 MG tabletIndicatio ns:Rash and other nonspecific skin eruption Take 2 pills 3 times per day. 180 tablet 2 12/14/19 22 Active pantoprazole EC (Protonix) 40 MG tablet 12/22/19 22 Active Active Problems Problem Noted Date Diagnosed Date Elevated beta-2 microglobulin 12/13/2021 Type 2 diabetes mellitus wit hout complication, with long-term current use of insulin 08/14/2021 Essential (primary) hypertension 08/14/2021 GERD (gastroesophageal reflux disease) CAD (coronary artery disease) 08/14/2021 Inflammatory polyarthritis 08/14/2021 Rheumatoid factor positive 08/14/2021 Resolved Problems Problem Noted Date Diagnosed Date Resolved Date Rash 08/14/2021 01/10/2022 Immunizations Immunization Administration Dates Next Due INFLUENZA VACCINE 06/09/2021 [...] at Not on file Legal Sex Male 7:59 AM CABBAGE SALTER Gender Identity Not on file Sexual Orientation [...] 12/13/2021 DIABETES-SERUM CREATININE 12/13/20222021, 08/14/2021 COVID-19 VACCINE ( - 2023-2 5 season) 2023 05/02/2021, 06/27/2020 DEPRESSION SCREENING 04/22/2024 09/14/2021 DIABETES - URINE PROTEIN SCREENING 04/22/2024 12/13/2021 INFLUENZA VACCINE (Season Ended) 2024 06/09/2021, 03/04/2019 DTAP/TDAP/TD VACCINES (2 - T d or [...] complete this topic MENINGOCOCCAL (Group B) VACCINE SHARED DECISION-MAKING Aged Out No longer eligible based on patient's age to complete this topic MENINGOCOCCAL GROUPS A/C/Y/W VACCINE Aged Out No longer eligible b ased on patient's age to complete this topic Procedures Procedure Name Priority Date/Time Associated Diagnosis Comments PROTEIN CREATININE RATIO URINE RANDOM PNL Routine 12/13/2021 9:38 AM CDT Inflammatory polyarthritis Rheumatoid factor positive Rash Elevated beta-2 microglobulin COMPREHENSIVE METABOLIC PANEL Routine 12/13/2021 9:38 AM CDT Inflammatory polyarthritis Rheumatoid factor positive Rash Elevated beta-2 microglobulin HEMOGLOBIN A1C Routine 12/13/2021 9:38 AM CDT Inflammatory polyarthritis Rheumatoid factor positive Rash Elevated beta-2 microglobulin Type 2 diabetes mellitus without complication, with long-term current use of insulin HEPATITIS C ANTIBODY Routine 08/14/2021 12:58 PM CDT Inflammatory polyarthritis Rash Rheumatoid factor positive Need for hepatitis C screening test from Last 3 Months or Most Recently Relevant to Health Maintenance Results * (ABNORMAL) HEMOGLOBIN A1C (12/13/2021 9:38 AM CDT) Hemoglobin A1c 9.6(H) <=5.6 % 12/13/2021 11:50 AM CDT [facility] Estimated Average Glucose 229 mg/dL 12/13/2021 11:50 AM T [facility] Comment: HbA1c Interpretation: Normal : < 5.7% Pre-diabetes: 5.7-6.4% Diabetes: Equal to or greater than 6.5% Test results diagnostic of diabetes should be repeated for confirmation. Treatment target values recommended by ADA and other clinical organizations should be used to evaluate metabolic control in patients. Reference: [place] [employer] Association, Standards of Care in Diabetes -2020 In patients 70 years and older consider HbA1c target range of 7.0-7.5% (Reference: Booker Gross et al. JAMDA. 2012) The Sebia assay for the measurement of HbA1c is a National Glycohemoglobin Standardization Program (NGSP) certified method. Blood BLOOD SPECIMEN / Unknown Lab Venipuncture / Unknown 12/13/2021 9:38 AM CDT 12/13/2021 10:17 AM CDT us Rufino Srinivasan MD LAB - CHEMISTRY ORDERABLES Final Result [facility] [address] [place] [address], [facility] [phone] * (ABNORMAL) COMPREHENSIVE METABOLIC PANEL (12/13/2021 9:38 AM CDT) BUN 12 7 - 26 mg/dL 12/13/2021 10:55 AM [facility] Creatinine 0.79 0.71 - 1.16 mg/dL 12/13/2021 10:55 AM [facility] Sodium 137 136 - 145 mmol/L 12/13/2021 10:55 AM [facility] Potassium 4.0 3.5 - 4.5 mmol/L 12/13/2021 10:55 AM [facility] Chloride 104 98 - 107 mmol/L 12/13/2021 10:55 AM [facility] CO2 23 22 - 29 mmol/L 12/13/2021 10:55 AM [facility] Glucose 121(H) 70 - 115 mg/dL 12/13/2021 10:55 AM [facility] Calcium 9.3 8.4 - 10.2 mg/dL 12/13/2021 10:55 AM [facility] Protein Total 7.5 6.0 - 8.3 g/dL 12/13/2021 10:55 AM [facility] Albumin 4.0 3.4 - 5.0 g/dL 12/13/2021 10:55 AM [facility] Bilirubin Total 0.4 0.2 - 1.2 mg/dL 12/13/2021 10:55 AM [facility] Alkaline Phosphatase 70 40 - 150 U/L 12/13/2021 10:55 AM [facility] ALT 32 5 - 55 U/L 12/13/2021 10:55 AM [facility] AST 24 5 - 34 U/L 12/13/2021 10:55 AM [facility] Anion Gap 14 8 - 18 12/13/2021 10:55 AM [facility] BUN/Creatinine Ratio 15 7 - 23 12/13/2021 10:55 AM [facility] Osmolality Calculated 285 270 - 300 mOsm/kg 12/13/2021 10:55 AM [facility] Albumin/Globulin Ratio 1.1 1.1 - 2.3 12/13/2021 10:55 AM [facility] eGFR by CKD-EPI >90 >=90 mL/min/1.7 3 m2 12/13/2021 10:55 AM [facility] Blood BLOOD SPECIMEN / Unknown Lab Venipuncture / Unknown 12/13/2021 9:38 AM T 12/13/2021 10:17 AM [facility] Rufino Srinivasan MD LAB - CHEMISTRY ORDERABLES Final Result [facility] [address] [place] [address], [facility] [phone] * PROTEIN CREATININE RATIO URINE RANDOM PNL (12/13/2021 9:38 AM [facility] Protein Urine <7 Not Established mg/dL 12/13/2021 10:37 AM [facility] Creatinine Urine 74 Not Established mg/dL 12/13/2021 10:37 AM [facility] Protein/Creatinin e Ratio Urine 12/13/2021 10:37 AM [facility] Comment:Unable to calculate ratio because the analyte concentration is outside the instrument measuring range. Urine URINE SPECIMEN OBTAINED BY CLEAN CATCH PROCEDURE / Unknown Collection / Unknown 12/13/2021 9:38 AM CDT 12/13/2021 10:14 AM CDT Rufino Srinivasan MD LAB - URINE CHEMISTRY ORDERABLES Final Result Performing Organization Address City/[facility]/ZIP Co de Phone Number [facility] [address] [place] [address], [place] [phone] * HEPATITIS C ANTIBODY (08/14/2021 12:58 PM CDT) Hepatitis C Antibody Non-react lizette Non-reac tive 08/14/2021 2:58 PM CDT [facility] Comment:Hepatitis C Antibody screen indicates no serologic [...] CDT Rufino Srinivasan MD LAB - CHEMISTRY ORDERABLES Final Result Performing Organization Address City/[facility] Co de Phone Number [facility] [address] [place] [address], [place] [phone] from Last 3 Months or Most Recently Relevant to Health Maintenance Insurance [facility] MEDICARE MANAGED CARE PLAN GENERIC MEDICARE ADV MEDICAID - OUT OF STATE Care Teams Microbiology Supervisor Relationship Specialty Start Date End Date Jaron Nieto MD [address] [place] [id number] PCP - General Environmental Health Technician 04/26/21
[2024-09-10 09:04] LABS: Basophils Absolute Auto 0.03 K/mm3 (0.00-0.10); Basophils Percent Auto 0.6 % (0.0-1.0); Eosinophils Absolute Auto 0.19 K/mm3 (0.02-0.50); Eosinophils Percent Auto 3.6 % (1.0-6.0); Hematocrit 45.9 % (37.0-46.0); Immature Granulocyte Absolute 0.02 K/mm3 (0.00-0.00); Immature Granulocyte Percent A 0.4 % (0.0-0.0); Lymphocytes Absolute Auto 0.61 K/mm3 (1.10-4.50); Lymphocytes Percent Auto 11.4 % (18.0-42.0); Mean Corpuscular HGB Conc 32.7 g/dL (32-36); Mean Corpuscular Hemoglobin 29.7 pg (27.0-31.0); Mean Corpuscular Volume 90.9 fL (78.0-102.0); Monocytes Absolute Auto 0.58 K/mm3 (0.10-0.90); Monocytes Percent Auto 10.9 % (2.0-11.0); Neutrophils Absolute Auto 3.91 K/mm3 (1.70-7.20); Neutrophils Percent Auto 73.1 % (50.0-70.0); Platelet Count Result 242 K/mm3 (150-420); Red Blood Count 5.05 M/mm3 (4.70-6.10); Red Cell Distribution Width 12.7 % (11.6-14.4); White Blood Count 5.3 K/mm3 (4.8-10.8)
[2024-09-10 09:21] LABS: Alanine Aminotransferase 27 U/L (6-50); Albumin Level 4.6 g/dL (3.5-5.1); Alkaline Phosphatase 83 U/L (38-126); Anion Gap 9 mmol/L (4-12); Aspartate Amino Transferase 28 U/L (17-59); Bilirubin,Total 0.8 mg/dL (0.2-1.3); Blood Urea Nitrogen 14 mg/dL (9-20); Calcium 9.1 mg/dL (8.4-10.2); Carbon Dioxide 23 mmol/L (22-30); Chloride 105 mmol/L (98-107); Estimated Glomerular Filt Rate > 60; Glucose 113 mg/dL (65-110); Osmolality Calculated 285 mOsm/kg (285-295); Potassium 5.3 mmol/L (3.4-5.0); Sodium 137 mmol/L (137-145); Total Protein 7.3 g/dL (6.3-8.2)
== END 2024-09-10 08:45 | disposition home or self-care (01) ==
LOC: CHSLAB 08:47
PROVIDERS: PCP Internal Medicine; Visit Provider Internal Medicine
DX: D72.819 Decreased white blood cell count, unspecified (principal); E78.5 Hyperlipidemia, unspecified
CPT/HCPCS: 36415; 80053; 85025

== ENCOUNTER 2025-01-23 07:37 | Outpatient (CLI) | payer OTHER, SELFPAY ==
--- OUTSIDE RECORDS SUMMARY | 2025-01-23 07:41 | XMS_ITS | Clinical Summary ---
Author Organization [facility] Address [address] [place] [address] Care Team Providers Care Heart Coordinator Name Role Phone Khurram Hayes DO Primary Care Provider [phone] Social History Tobacco Use Types Packs/Day Years Used Date Smoking Tobacco: Never Assessed Sex and Gender Information Value Date Recorded Sex Assigned at Not on file Legal Sex Male 1:27 AM CDT Gender Identity Not on file Sexual Orientation Not on file Plan of Treatment Health Maintenance Due Date Last Done Comments Colorectal Cancer Screening Colonoscopy (10 Years) 1960 DTaP, Tdap and Td Vaccines ( 1 - Tdap) 07/31/1978 Zoster Vaccines (2 of 2) 02/18/2019 12/24/2018 Pneumococcal Vaccine: 50+ Ye ars (2 of 2 - PPSV23) 08/15/2019 08/14/2018 COVID-19 Vaccine (1 - 2023-2 5 season) 2024 RSV Immunization or 60+ Years (1 - 1-dose 75+ series) 07/31/2034 Hepatitis C Completed 10/13/2019 Meningococcal B Vaccine [...] VE NON-REACT SHERLY 10/13/2019 2:09 PM CDT [facility] Comment: ANTIBODIES TO HCV NOT DETECTED. DOES NOT EXCLUDE THE POSSIBILITY OF EXPOSURE TO HCV. 10/13/2019 10:1 6 AM CDT Suman Newman MD LABORATORY Final Result [facility] [address] [place] [address], [id number] from Last 3 Months or Most Recently Relevant to Health Maintenance Insurance MEDICAID MEDICARE Care Teams Heart Coordinator Relationship Specialty Start Date End Date Khurram Hayes DO [address] [place] [address] PCP - General INTERNAL MEDICINE 10/13/19
--- OUTSIDE RECORDS SUMMARY | 2025-01-23 07:41 | XMS_ITS | Clinical Summary ---
Author Organization [facility] Address [address] [place] [address] Care Team Providers Care Centrifugal Machine Tender Name Role Phone Jaron Nieto MD Primary Care Provider [phone] Source Comments [facility],non-owned Affiliates and Associated Physician Practices is amultiple site organization consisting of ambulatory clinics and hospital sitesin [place], [place], [place] and [place]. This disclosure is being madepursuant to the Care Everywhere program and may not contain all information available regarding this patient. 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 Gender Identity Not on file Sexual Orientation [...] 3:23 PM CDT Height 180.3 cm (5' 11) 12/13/2021 8:07 AM CDT Body Mass Index [...] PNEUMOCOCCAL VACCINE 50+ (2 of 2 - PPSV23, PCV20, or PCV21) 10/09/2018 08/14/2018 ZOSTER VACCINE (2 of 2) 02/18/2019 12/24/2018 Respiratory Syncytial Virus (RSV) Vaccine Pt: or over 60 yrs (1 - Risk 60-74 years 1-dose series) 2019 DIABETES RETINOPATHY SCREENING 08/14/2021 DIABETES-FOOT EXAM WITH MONOFILAMENT 08/14/2021 DIABETES-HGB A1C 03/15/2022 12/13/2021 DIABETES-SERUM CREATININE 12/13/20222021, 08/14/2021 DEPRESSION SCREENING 04/22/2024 09/14/2021 DIABETES - URINE PROTEIN SCREENING 04/22/2024 12/13/2021 COVID-19 VACCINE (3 - 2024-2 6 season) 2024 05/02/2021, 06/27/2020 INFLUENZA VACCINE (#1) 2024 2, 03/04/2019 DTAP/TDAP/TD VACCINES (2 - T d [...] <=5.6 % 12/13/2021 11:50 AM CDT [facility] Estimated Average Glucose 229 mg/dL 12/13/2021 11:50 AM CDT [facility] Comment: HbA1c Interpretation: Normal [...] of 7.0-7.5% (Reference: Booker Gross et al. RILEY. 2012) The Sebia assay for the measurement of HbA1c is a National Glycohemoglobin Standardization Program (NGSP) certified method. Blood BLOOD SPECIMEN / Unknown Lab Venipuncture / Unknown 12/13/2021 9:38 AM CDT 12/13/2021 10:17 AM CDT Rufino Srinivasan MD LAB - CHEMISTRY ORDERABLES Final Result [facility] [address] [place] [address], [facility] [phone] * (ABNORMAL) COMPREHENSIVE METABOLIC PANEL (12/13/2021 9:38 [...] 98 - 107 mmol/L 12/13/2021 10:55 AM [facility] CO2 23 22 - 29 mmol/L [...] 12/13/2021 9:38 AM T 12/13/2021 10:17 AM [facility] us Rufino Srinivasan MD LAB - CHEMISTRY ORDERABLES Final Result [address] [address], [facility] [phone] * PROTEIN CREATININE RATIO URINE RANDOM PNL (12/13/2021 9:38 AM [facility]) Protein Urine <7 Not Established mg/dL 12/13/2021 [...] LAB - URINE CHEMISTRY ORDERABLES Final Result [facility] [address] [place] [address], [place] [phone] * HEPATITIS C ANTIBODY (08/14/2021 12:58 PM CDT) Hepatitis C Antibody Non-react lizette Non-reac tive 08/14/2021 2:58 PM CDT [facility] Comment:Hepatitis C Antibody screen indicates no [...] CHEMISTRY ORDERABLES Final Result Performing Organization Address City/[facility]/ZIP Co de Phone Number [facility] [address] [place] [address], [place] [phone] from Last 3 Months or Most Recently Relevant to Health Maintenance Insurance [facility] MEDICARE MANAGED CARE PLAN GENERIC MEDICARE ADV MEDICAID - OUT OF STATE Care Teams Centrifugal Machine Tender Relationship Specialty Start Date End Date Jaron Nieto MD [address] [place] [id number] PCP - General Pin Sorter And Bagger 04/26/21
[2025-01-23 08:43] LABS: Hematocrit 39.9 % (37.0-46.0); Hemoglobin 13.0 g/dL (12.4-15.3); Immature Granulocyte Percent A 0.6 % (0.0-0.0); Lymphocytes Absolute Auto 0.72 K/mm3 (1.10-4.50); Mean Corpuscular HGB Conc 32.6 g/dL (32-36); Mean Corpuscular Hemoglobin 30.0 pg (27.0-31.0); Mean Corpuscular Volume 92.1 fL (78.0-102.0); Nucleated Red Blood Cells Absolute Auto 0.00 K/mm3 (0.00-0.00); Nucleated Red Blood Cells Perc 0.0 % (0-0.0); Platelet Count Result 178 K/mm3 (150-420); Red Blood Count 4.33 M/mm3 (4.70-6.10); White Blood Count 4.8 K/mm3 (4.8-10.8)
[2025-01-23 08:49] LABS: Alanine Aminotransferase 35 U/L (6-50); Albumin Level 4.3 g/dL (3.5-5.1); Alkaline Phosphatase 68 U/L (38-126); Anion Gap 9 mmol/L (4-12); Aspartate Amino Transferase 32 U/L (17-59); Bilirubin,Total 0.4 mg/dL (0.2-1.3); Blood Urea Nitrogen 15 mg/dL (9-20); Calcium 9.5 mg/dL (8.4-10.2); Carbon Dioxide 28 mmol/L (22-30); Chloride 104 mmol/L (98-107); Cholesterol 120 mg/dL (0-200); Creatine Kinase 106 U/L (55-170); Estimated Glomerular Filt Rate > 60; Glucose 118 mg/dL (65-110); HDL Direct 43 mg/dL; Osmolality Calculated 293 mOsm/kg (285-295); Potassium 5.1 mmol/L (3.4-5.0); Sodium 141 mmol/L (137-145); Total Protein 7.1 g/dL (6.3-8.2); Triglycerides 73 mg/dL (<150)
[2025-01-23 08:54] LABS: Hemoglobin A1C 6.3 % (<5.7)
[2025-01-23 09:02] LABS: Add Urine Microscopic? NO; Appearance Urine Clear (Clear); Glucose Urine UA Negative (Negative); Leukocyte Esterase Ur Negative LEU/UL (Negative); Nitrate Urine Negative (Negative); Specific Grav Ur <= 1.005 (1.010-1.020)
[2025-01-23 09:30] LABS: MALB Creatinine Ratio 9.2 mg/g (0-30)
== END 2025-01-23 07:38 | disposition home or self-care (01) ==
LOC: CHSLAB 07:39
PROVIDERS: PCP Internal Medicine; Visit Provider Internal Medicine
DX: E11.65 Type 2 diabetes mellitus with hyperglycemia (principal); E78.2 Mixed hyperlipidemia; I10 Essential (primary) hypertension; N39.0 Urinary tract infection, site not specified
CPT/HCPCS: 36415; 80053; 80061; 81003; 82043; 82550; 83036; 85025

== ENCOUNTER 2025-03-05 12:10 | Outpatient (CLI) | payer OTHER, SELFPAY ==
--- NOTE | ~2025-03-05 | US_ITS ---
EXAMINATION: US carotid duplex BI DATE: 03/05/2025 12:52 INDICATION: Carotid bruit TECHNIQUE: Grayscale, color Doppler, and pulsed Doppler images of the cervical carotid arteries were obtained. The degree of vessel stenosis is placed in one of the following categories: normal, <50%, 50-69%, >=70% but less than near- occlusion, near-occlusion, or total occlusion. Note that percent stenosis relative to normal distal artery lumen diameter is indirectly measured from velocity measurements as described by Maxi, et al. Radiology 2003; 229:340-346. COMPARISON: None. FINDINGS: RIGHT: The right common carotid artery (CCA) peak systolic velocity (PSV) is 97 cm/s. The right internal carotid artery (ICA) PSV is 65 cm/s. The right ICA end- diastolic velocity (EDV) is 20 cm/s. The right ICA/CCA PSV ratio is 0.7. Grayscale and color Doppler images yield an estimate of <50% diameter reduction from minimal plaque in the ICA. The external carotid artery (ECA) PSV is 131 cm/s. There is antegrade flow in the right vertebral artery. LEFT: The left CCA PSV is 98 cm/s. The left ICA PSV is 83 cm/s. The left ICA EDV is 32 cm/s. The left ICA/CCA PSV ratio is 0.9. Grayscale and color Doppler images yield an estimate of <50% diameter reduction from from small amount of plaque in the ICA. The ECA PSV is 88 cm/s. There is antegrade flow in the left vertebral artery. IMPRESSION: 1. <50% stenosis in the right internal carotid artery. 2. <50% stenosis in the left internal carotid artery. Reviewed, dictated and finalized at location A. EY KEEPER
--- NOTE | ~2025-03-05 | US_ITS ---
EXAM/PROCEDURE: US arterial ankle brachial ind HISTORY: PAD, CAROTID BRUIT COMPARISON: None available. TECHNIQUE: RODRIGUEZ exam FINDINGS: Right and left brachial systolic pressure readings are 138 and 139 Right and left dorsalis pedis pressure readings are 148 and 136 Right and left posterior tibial pressure readings are 148 and 146 Right and left great toe pressure readings are 145 and 161 Right and left ABIs are 1.06 and 1.05 Right and left TBI's are 1.04 and 1.16 Plethysmography appears within normal limits. IMPRESSION: Both ABIs within normal limits. Reviewed, dictated and finalized at location A. T ROCK TAPER
== END 2025-03-05 12:11 | disposition home or self-care (01) ==
PROVIDERS: PCP Internal Medicine; Visit Provider Internal Medicine
DX: I25.10 Atherosclerotic heart disease of native coronary artery without angina pectoris (principal); R09.89 Other specified symptoms and signs involving the circulatory and respiratory systems; I73.9 Peripheral vascular disease, unspecified; I65.23 Occlusion and stenosis of bilateral carotid arteries
CPT/HCPCS: 93880; 93922